=== PATIENT | female | born 1935 | race Caucasian/White ===

== ENCOUNTER → 2018-03-13 | Outpatient (CLI) | payer MEDICARE ==
[~2018-03-13] MED LIST: AMIL5TAB PO; CALC-337 PO; DIGO0.2570 PO; EMOLCRE PO; FLUT500M2 IN; HYDR-1421 PO; INDOPOW PO; LEVO25TA45 PO; LORA-205 PO; MAGN-46 PO; METO100T87 PO; MULT-278 PO; OMEG100078 PO; OMEP20TA85 PO; PROG100C4 PO; SIMV20TA90 PO; TELM20TA PO; TIOTCAP IN; WARF3TAB20 PO; [UNRECOGNIZED DRUG - CODE] PO; [UNRECOGNIZED DRUG - CODE] PO; [UNRECOGNIZED DRUG - OTHER] PO; [UNRECOGNIZED DRUG - OTHER] PO
[2018-03-13 15:14] LABS: Ferritin 43.8 ng/mL (10-322)
[2018-03-13 15:15] LABS: Folate (Folic Acid) > 24.00 ng/mL (5.38-24)
[2018-03-18 20:00] LABS: % Iron Saturation 14.6 % (15-50)
== END | disposition home or self-care (01) ==
LOC: LAB 14:06
PROVIDERS: ATTEND Psychiatry & Neurology Neurology
DX: E61.1 Iron deficiency (principal); G62.9 Polyneuropathy, unspecified; I10 Essential (primary) hypertension
CPT/HCPCS: 36415; 82607; 82728; 82746; 83540; 83550; 84155; 84165; 84443

== ENCOUNTER 2022-12-31 00:45 | Inpatient (IN) | payer MEDICARE ==
[~2022-12-31] VITALS: Ht 160 cm; Wt 71.9 kg
[~2022-12-31 00:45] MED LIST changes: +OMEG-20 PO; -OMEG100078 PO; +PROG100C23 PO; -PROG100C4 PO; +SIMV-270 PO; -SIMV20TA90 PO
[2022-12-31] MEDS ORDERED: dilTIAZem 25 MG/5 ML VIAL IV ONE ×2 (01:15→02:00)
[2022-12-31 01:22] LABS: Basophils # (auto) 0.2 10 ^3/uL (0-0.2); Basophils % (auto) 1.9 % (0.0-2.0); Eosinophils # (auto) 0.4 10 ^3/uL (0-0.8); Eosinophils % (auto) 4.3 % (0.0-7.0); Hematocrit 40.2 % (36.0-46.0); Hemoglobin 13.4 g/dL (12.2-16.2); Lymphocytes # (auto) 3.3 10 ^3/uL (0.4-5.4); Lymphocytes % (auto) 36.7 % (10.0-50.0); Mean Corpuscular Hemoglobin 30.9 pg (28.0-32.0); Mean Corpuscular Hgb Conc. 33.4 g/dL (32.0-36.0); Mean Corpuscular Volume 92.7 fL (80.0-100.0); Monocytes # (auto) 0.7 10 ^3/uL (0-1.3); Monocytes % (auto) 7.5 % (0.0-12.0); Neutrophils # (auto) 4.4 10 ^3/uL (1.6-8.6); Neutrophils % (auto) 49.6 % (37.0-80.0); Red Blood Cells 4.34 10^6/uL (4.0-5.20); Red Cell Distribution Width 14.2 % (11.8-14.3); White Blood Cell 8.9 10^3/uL (4.4-10.8)
[2022-12-31 01:36] LABS: INR 1.09 (0.9-1.15); Partial Thromboplastin Time 30.3 SEC (24.5-34.5)
[2022-12-31 01:39] LABS: Albumin 3.9 g/dL (3.4-5.0); BUN/Creatinine Ratio 23.8 (10.0-20.0); Calcium 8.8 mg/dL (8.5-10.1); Magnesium 2.8 mg/dL (1.6-2.6)
[2022-12-31 01:41] LABS: Bilirubin, Total 0.4 mg/dL (0.2-1.0); Total Protein 6.8 g/dL (6.4-8.2)
[2022-12-31] MEDS ORDERED: ACETAMINOPHEN 325 MG TAB PO ONE (02:00)
[2022-12-31] MEDS ORDERED: PANTOPRAZOLE 40 MG/10 ML VIAL INJ IV ONE (02:00)
[2022-12-31] MEDS ORDERED: dilTIAZem HCL 60 MG TAB PO ONE (02:00)
[2022-12-31] MEDS ORDERED: DIGOXIN (250MCG/ML) 2 ML AMPULE IV ONE (02:00)
[2022-12-31] MEDS ORDERED: MORPHINE SULFATE INJ 2 MG/ml SYRG IV ONE (02:00)
[2022-12-31] MEDS ORDERED: CALCIUM CHL 100MG/ML 1,000 MG in D5W 5% 100 ML IV ONE (02:00)
[2022-12-31] MEDS ORDERED: ONDANSETRON HCL 4 MG/2 ML VIAL IV ONE (02:00)
[2022-12-31] MEDS ORDERED: ALBUMIN 25% 100 ML IV ONE ×2 (02:00→04:45)
[2022-12-31] MEDS ORDERED: CALCIUM CHLOR(10%) 100MG/ML 10ML SYRINGE IV ONE (02:30)
[2022-12-31] MEDS ORDERED: dilTIAZem 125mg/125ml BAG KIT 125 ML IV SCH (03:45)
[2022-12-31] MEDS ORDERED: SODIUM CHLORIDE 0.9% 500 ML IV ONE (04:45)
[2022-12-31] MEDS ORDERED: MORPHINE SULFATE INJ 2 MG/ml SYRG IV PRN (06:15)
[2022-12-31] MEDS ORDERED: ACETAMINOPHEN 325 MG TAB PO PRN (06:15)
[2022-12-31] MEDS ORDERED: NOREPINEPHRINE 8 MG/250ML KIT 250 ML IV SCH (06:15)
[2022-12-31] MEDS ORDERED: ONDANSETRON HCL 4 MG/2 ML VIAL IV PRN (06:15)
[2022-12-31] MEDS ORDERED: NITROGLYCERIN 0.4 MG SL TAB SL PRN (06:15)
[2022-12-31 07:30] VITALS: O2SAT 93
[2022-12-31] MEDS ORDERED: PANTOPRAZOLE 40 MG TAB PO SCH (10:00)
[2022-12-31] MEDS: DIGOXIN 0.125 MG TAB PO SCH (10:00)
[2022-12-31] MEDS ORDERED: ASPirin 81 mg TAB PO SCH (10:00)
[2022-12-31] MEDS: APIXABAN 5 MG TAB PO SCH ×2 (10:00→21:41)
[2022-12-31] MEDS: HYDROcodone-ACET 5/325MG TAB PO PRN (17:28)
[2022-12-31] MEDS: FUROSEMIDE 20 MG TAB PO SCH (18:28)
[2022-12-31 19:24] LABS: BUN/Creatinine Ratio 16.3 (10.0-20.0); Potassium 4.3 mmol/L (3.5-5.1)
[2022-12-31 19:30] VITALS: PULSE 60; RESP 20; O2SAT 95
[2022-12-31] MEDS: MAGNESIUM OXIDE 400 MG TAB PO SCH (21:42)
[2022-12-31] MEDS ORDERED: ATORVASTATIN 20 MG TAB PO SCH (22:00)
[2023-01-01] MEDS: HYDROcodone-ACET 5/325MG TAB PO PRN ×3 (00:51→14:31)
[2023-01-01] MEDS: FUROSEMIDE 20 MG TAB PO SCH (06:52)
[2023-01-01 06:55] LABS: Basophils # (auto) 0.1 10 ^3/uL (0-0.2); Basophils % (auto) 1.2 % (0.0-2.0); Eosinophils # (auto) 0.4 10 ^3/uL (0-0.8); Eosinophils % (auto) 4.6 % (0.0-7.0); Hematocrit 36.5 % (36.0-46.0); Hemoglobin 12.1 g/dL (12.2-16.2); Lymphocytes # (auto) 2.5 10 ^3/uL (0.4-5.4); Lymphocytes % (auto) 28.9 % (10.0-50.0); Mean Corpuscular Hemoglobin 30.7 pg (28.0-32.0); Mean Corpuscular Hgb Conc. 33.1 g/dL (32.0-36.0); Mean Corpuscular Volume 92.9 fL (80.0-100.0); Monocytes # (auto) 0.7 10 ^3/uL (0-1.3); Monocytes % (auto) 8.6 % (0.0-12.0); Neutrophils # (auto) 4.9 10 ^3/uL (1.6-8.6); Neutrophils % (auto) 56.7 % (37.0-80.0); Nucleated Red Blood Cells % 0.1 %; Red Blood Cells 3.93 10^6/uL (4.0-5.20); Red Cell Distribution Width 13.5 % (11.8-14.3); White Blood Cell 8.6 10^3/uL (4.4-10.8)
[2023-01-01 06:56] LABS: Albumin 3.8 g/dL (3.4-5.0); Calcium 8.8 mg/dL (8.5-10.1); Potassium 3.9 mmol/L (3.5-5.1)
[2023-01-01 07:00] LABS: BUN/Creatinine Ratio 16.1 (10.0-20.0); Bilirubin, Total 0.4 mg/dL (0.2-1.0); Total Protein 6.7 g/dL (6.4-8.2)
[2023-01-01] MEDS ORDERED: LEVOTHYROXINE SODIUM 25 MCG TAB PO SCH (07:00)
[2023-01-01 08:22] VITALS: PULSE 60; RESP 20; O2SAT 98
[2023-01-01] MEDS: APIXABAN 5 MG TAB PO SCH ×2 (09:45→09:51)
[2023-01-01] MEDS: MAGNESIUM OXIDE 400 MG TAB PO SCH ×2 (09:45→09:51)
[2023-01-01] MEDS: DIGOXIN 0.125 MG TAB PO SCH (09:45)
[2023-01-01] MEDS ORDERED: METOPROLOL SUCCINATE XL 50 MG TAB PO SCH (10:00)
[2023-01-01] MEDS ORDERED: ALBU0.084 NEB (12:39)
[2023-01-01] MEDS ORDERED: AMLO1TAB22 PO (12:41)
[2023-01-01] MEDS ORDERED: APIX2.5T PO (13:31)
[2023-01-01] MEDS ORDERED: HYDR1TAB97 PO (13:31)
[2023-01-01] MEDS ORDERED: S-AD400T6 PO (13:31)
[2023-01-01] MEDS ORDERED: [UNRECOGNIZED DRUG - CODE] PO (13:31)
[2023-01-01] MEDS ORDERED: FURO1TAB33 PO (13:31)
[2023-01-01] MEDS ORDERED: GABA-1308 PO (13:31)
[2023-01-01] MEDS ORDERED: ZINC100T5 PO (13:31)
[2023-01-01] MEDS ORDERED: CODOIL PO (13:31)
[2023-01-01] MEDS ORDERED: SIMV20TA20 PO (13:31)
[2023-01-01] MEDS ORDERED: CHOL20007 PO (13:31)
[2023-01-01] MEDS ORDERED: POTA10IN6 PO (13:31)
[2023-01-01] MEDS ORDERED: CYA100I PO (13:31)
[2023-01-01] MEDS ORDERED: FLUT1AER3 IN (13:31)
[2023-01-01] MEDS ORDERED: FERR1TAB36 PO (13:31)
[2023-01-01] MEDS ORDERED: [UNRECOGNIZED DRUG - CODE] PO (13:31)
[2023-01-01] MEDS ORDERED: METO25TA93 PO (13:31)
[2023-01-01] MEDS ORDERED: OMEP-448 PO (13:31)
[2023-01-01] MEDS ORDERED: GABAPENTIN 400 MG CAP PO SCH (14:00)
[2023-01-01] MEDS ORDERED: AMIO200T33 PO (14:44)
[2023-01-01 15:00] VITALS: BP 145/54; PULSE 60; RESP 18; TEMP 98.4; O2SAT 97
== END 2023-01-01 15:42 | disposition home or self-care (01) | DRG 291 ==
LOC: ER 00:45 → EDBD 00:45 → TELE 06:16 → TELE-CENTR 01-01 10:42
PROVIDERS: ADMIT Internal Medicine; ATTEND Internal Medicine
DX: I11.0 Hypertensive heart disease with heart failure (principal); I50.43 Acute on chronic combined systolic (congestive) and diastolic (congestive) heart failure; I48.0 Paroxysmal atrial fibrillation; I25.110 Atherosclerotic heart disease of native coronary artery with unstable angina pectoris; I95.9 Hypotension, unspecified; E11.9 Type 2 diabetes mellitus without complications; Z66 Do not resuscitate; E78.5 Hyperlipidemia, unspecified; K21.9 Gastro-esophageal reflux disease without esophagitis; J44.9 Chronic obstructive pulmonary disease, unspecified; E03.9 Hypothyroidism, unspecified; F41.9 Anxiety disorder, unspecified; E66.9 Obesity, unspecified; Z88.2 Allergy status to sulfonamides; Z87.828 Personal history of other (healed) physical injury and trauma; Z88.8 Allergy status to other drugs, medicaments and biological substances; Z88.1 Allergy status to other antibiotic agents; Z90.710 Acquired absence of both cervix and uterus; Z68.28 Body mass index [BMI] 28.0-28.9, adult
CPT/HCPCS: 36415; 71045; 80048; 80053; 80162; 83036; 83735; 83880; 84443; 84484; 85025; 85379; 85610; 85730; 93005; 96361; 96365; 96367; 96375; 96376; C9113; G0378; J2405; J7060; P9047

== ENCOUNTER 2023-03-11 05:34 | Inpatient (IN) | payer MEDICARE ==
[~2023-03-11] VITALS: Ht 160 cm; Wt 69.9 kg
[~2023-03-11 05:34] MED LIST changes: +ALBU0.084 NEB; -AMIL5TAB PO; +AMIO200T33 PO; +AMLO1TAB22 PO; +APIX2.5T PO; -CALC-337 PO; +CHOL20007 PO; +CODOIL PO; +CYA100I PO; -EMOLCRE PO; +FERR1TAB36 PO; +FLUT1AER3 IN; -FLUT500M2 IN; +FURO1TAB33 PO; +GABA-1308 PO; -HYDR-1421 PO; +HYDR1TAB97 PO; -INDOPOW PO; -LORA-205 PO; -MAGN-46 PO; -METO100T87 PO; +METO25TA93 PO; -MULT-278 PO; -OMEG-20 PO; +OMEP-448 PO; -OMEP20TA85 PO; +POTA10IN6 PO; -PROG100C23 PO; +S-AD400T6 PO; -SIMV-270 PO; +SIMV20TA20 PO; -TELM20TA PO; -TIOTCAP IN; -WARF3TAB20 PO; +ZINC100T5 PO; +[UNRECOGNIZED DRUG - CODE] PO; -[UNRECOGNIZED DRUG - CODE] PO; -[UNRECOGNIZED DRUG - CODE] PO; -[UNRECOGNIZED DRUG - OTHER] PO; -[UNRECOGNIZED DRUG - OTHER] PO
[2023-03-11 07:18] LABS: Basophils # (auto) 0.2 10 ^3/uL (0-0.2); Eosinophils # (auto) 0.3 10 ^3/uL (0-0.8); Eosinophils % (auto) 4.4 % (0.0-7.0); Hematocrit 40.5 % (36.0-46.0); Hemoglobin 13.3 g/dL (12.2-16.2); Lymphocytes # (auto) 2.7 10 ^3/uL (0.4-5.4); Lymphocytes % (auto) 36.3 % (10.0-50.0); Mean Corpuscular Hemoglobin 29.8 pg (28.0-32.0); Mean Corpuscular Hgb Conc. 32.8 g/dL (32.0-36.0); Mean Corpuscular Volume 90.7 fL (80.0-100.0); Monocytes # (auto) 0.8 10 ^3/uL (0-1.3); Monocytes % (auto) 10.8 % (0.0-12.0); Neutrophils # (auto) 3.5 10 ^3/uL (1.6-8.6); Neutrophils % (auto) 46.5 % (37.0-80.0); Red Blood Cells 4.47 10^6/uL (4.0-5.20); Red Cell Distribution Width 13.9 % (11.8-14.3); White Blood Cell 7.5 10^3/uL (4.4-10.8)
[2023-03-11 07:32] LABS: INR 1.06 (0.9-1.15); Partial Thromboplastin Time 29.9 SEC (24.5-34.5); Prothrombin Time 11.1 sec (9.3-11.8)
[2023-03-11 07:41] LABS: Alanine Aminotransferase 29 U/L (7-40); Albumin 4.2 g/dL (3.2-4.8); Alkaline Phosphatase 85 U/L (46-116); Anion Gap 3 (5-15); Aspartate Aminotransferase 15 U/L (13-40); BUN/Creatinine Ratio 21.6 (10.0-20.0); Bilirubin, Total 0.4 mg/dL (0.2-1.0); Blood Urea Nitrogen 21 mg/dL (9-23); Carbon Dioxide 31 mmol/L (20-30); Chloride 106 mmol/L (98-107); Glucose 97 mg/dL (74-106); Lipase 34 U/L (12-53); Potassium 4.5 mmol/L (3.5-5.1); Sodium 140 mmol/L (136-145); Total Protein 6.4 g/dL (5.7-8.2)
[2023-03-11] MEDS ORDERED: PANTOPRAZOLE 40 MG/10 ML VIAL INJ IV ONE (08:30)
[2023-03-11] MEDS ORDERED: NITROGLYCERIN 0.4 MG SL TAB SL PRN (08:45)
[2023-03-11] MEDS ORDERED: MORPHINE SULFATE INJ 2 MG/ml SYRG IV PRN (08:45)
[2023-03-11] MEDS ORDERED: ALBUTEROL SULF 2.5 MG/0.5ML(0.5%) NEB SOLN NEB PRN (09:15)
[2023-03-11 09:22] VITALS: PULSE 60; RESP 12; O2SAT 99
[2023-03-11 09:25] LABS: Urine Bacteria NONE SEEN /hpf (None Seen); Urine Blood Negative /uL (Negative); Urine Clarity Clear (Clear); Urine Color Yellow (Yellow); Urine Protein, UAD Negative (Negative); Urine Specific Gravity 1.022 (1.001-1.035); Urine Urobilinogen Normal (Negative); Urine WBC 1 /hpf (0 - 5)
[2023-03-11] MEDS ORDERED: APIXABAN 2.5 MG TAB PO SCH (10:00)
[2023-03-11] MEDS: METHYLSULFONYLMETHANE 1000 MG PO SCH (10:00)
[2023-03-11 10:05] VITALS: PULSE 60; RESP 20; O2SAT 95
[2023-03-11] MEDS: FUROSEMIDE 20 MG TAB PO SCH (11:01)
[2023-03-11] MEDS: GABAPENTIN 400 MG CAP PO SCH ×2 (11:01→21:16)
[2023-03-11] MEDS: amLODIPine BESYLATE 5 MG TAB PO SCH (11:02)
[2023-03-11] MEDS: DIGOXIN 0.25 MG TAB PO SCH (11:02)
[2023-03-11] MEDS: AMIODARONE HCL 200 MG TAB PO SCH (11:02)
[2023-03-11] MEDS: HEPARIN SODIUM (PORCINE) 5000 UNITS/ML 1ML VIAL SC SCH ×2 (11:05→21:20)
[2023-03-11] MEDS: SODIUM CHLORIDE 0.9% 1,000 ML IV SCH (11:22)
[2023-03-11] MEDS: COD LIVER OIL PO SCH ×2 (14:00→21:21)
[2023-03-11 18:20] VITALS: O2SAT 95
[2023-03-11 18:59] VITALS: BP 143/56; PULSE 60; RESP 20; TEMP 98.2; O2SAT 96
[2023-03-11] MEDS: ATORVASTATIN 20 MG TAB PO SCH (19:25)
[2023-03-11] MEDS: S ADENOSYLMETHIONINE 400 MG PO SCH (19:26)
[2023-03-11 22:00] VITALS: BP 140/65; PULSE 60; RESP 19; TEMP 98.2; O2SAT 96
[2023-03-12] MEDS: SODIUM CHLORIDE 0.9% 1,000 ML IV SCH ×2 (01:25→18:38)
[2023-03-12 05:00] VITALS: BP_SYST 103; BP_SYST 152; BP_DIAS 54; BP_DIAS 76; PULSE 60; PULSE 71; RESP 15; RESP 20; TEMP 98.1; TEMP 98.3; O2SAT 95
[2023-03-12 05:59] LABS: Basophils # (auto) 0.1 10 ^3/uL (0-0.2); Basophils % (auto) 1.9 % (0.0-2.0); Eosinophils # (auto) 0.3 10 ^3/uL (0-0.8); Eosinophils % (auto) 5.1 % (0.0-7.0); Hematocrit 40.1 % (36.0-46.0); Hemoglobin 13.1 g/dL (12.2-16.2); Lymphocytes # (auto) 2.2 10 ^3/uL (0.4-5.4); Lymphocytes % (auto) 33.7 % (10.0-50.0); Mean Corpuscular Hemoglobin 29.6 pg (28.0-32.0); Mean Corpuscular Hgb Conc. 32.8 g/dL (32.0-36.0); Mean Corpuscular Volume 90.3 fL (80.0-100.0); Monocytes # (auto) 0.7 10 ^3/uL (0-1.3); Monocytes % (auto) 10.1 % (0.0-12.0); Neutrophils # (auto) 3.2 10 ^3/uL (1.6-8.6); Neutrophils % (auto) 49.2 % (37.0-80.0); Red Blood Cells 4.44 10^6/uL (4.0-5.20); Red Cell Distribution Width 13.9 % (11.8-14.3); White Blood Cell 6.5 10^3/uL (4.4-10.8)
[2023-03-12] MEDS: COD LIVER OIL PO SCH ×3 (06:00→21:17)
[2023-03-12 06:13] LABS: Alanine Aminotransferase 26 U/L (7-40); Albumin 3.8 g/dL (3.2-4.8); Alkaline Phosphatase 68 U/L (46-116); Anion Gap 6 (5-15); Aspartate Aminotransferase 19 U/L (13-40); Calcium 9.2 mg/dL (8.5-10.1); Carbon Dioxide 27 mmol/L (20-30); Chloride 106 mmol/L (98-107); Glucose 89 mg/dL (74-106); Potassium 4.1 mmol/L (3.5-5.1); Sodium 139 mmol/L (136-145)
[2023-03-12 06:14] LABS: Bilirubin, Total 0.6 mg/dL (0.2-1.0); Total Protein 6.2 g/dL (5.7-8.2)
[2023-03-12] MEDS: LEVOTHYROXINE SODIUM 25 MCG TAB PO SCH (06:16)
[2023-03-12] MEDS ORDERED: GABAPENTIN 100 MG CAP PO ONE (06:30)
[2023-03-12 06:44] LABS: Blood Urea Nitrogen 9 mg/dL (9-23)
[2023-03-12 08:00] VITALS: PULSE 60; RESP 17
[2023-03-12] MEDS: S ADENOSYLMETHIONINE 400 MG PO SCH ×2 (08:00→18:00)
[2023-03-12 09:00] VITALS: BP 128/50; PULSE 60; RESP 17; TEMP 97.6; O2SAT 96; O2SAT 97
[2023-03-12] MEDS ORDERED: HEPARIN SODIUM (PORCINE) 5000 UNITS/ML 1ML VIAL ONE (09:39)
[2023-03-12] MEDS: GABAPENTIN 400 MG CAP PO SCH ×2 (09:52→21:12)
[2023-03-12] MEDS: POTASSIUM CHLORIDE 8 MEQ TAB PO SCH (09:52)
[2023-03-12] MEDS: FUROSEMIDE 20 MG TAB PO SCH (09:52)
[2023-03-12] MEDS: DIGOXIN 0.25 MG TAB PO SCH (09:53)
[2023-03-12] MEDS: METOPROLOL SUCCINATE XL 50 MG TAB PO SCH (09:53)
[2023-03-12] MEDS: AMIODARONE HCL 200 MG TAB PO SCH (09:53)
[2023-03-12] MEDS: CHOLECALCIFEROL (VITD3) 1,000UNIT=25mCg TAB PO SCH (09:54)
[2023-03-12] MEDS: amLODIPine BESYLATE 5 MG TAB PO SCH (09:54)
[2023-03-12] MEDS: CHOLECALCIFEROL (VITD3) 2,000 UNIT CAP/TAB PO SCH (09:54)
[2023-03-12] MEDS: FERROUS SULFATE PO SCH (10:00)
[2023-03-12] MEDS: METHYLSULFONYLMETHANE 1000 MG PO SCH (10:00)
[2023-03-12] MEDS: HEPARIN SODIUM (PORCINE) 5000 UNITS/ML 1ML VIAL SC SCH ×2 (10:04→21:16)
[2023-03-12] MEDS: PANTOPRAZOLE 40 MG/10 ML VIAL INJ IV SCH (10:10)
[2023-03-12 13:00] VITALS: BP 107/56; PULSE 60; RESP 17; TEMP 97.8; O2SAT 98
[2023-03-12 17:00] VITALS: BP 118/55; PULSE 60; RESP 20; TEMP 97.9; O2SAT 99
[2023-03-12] MEDS: ATORVASTATIN 20 MG TAB PO SCH (18:37)
[2023-03-12 20:00] VITALS: PULSE 60; RESP 16
[2023-03-13 00:05] VITALS: BP 143/49; PULSE 60; RESP 18; TEMP 98.2; O2SAT 97
[2023-03-13 04:55] VITALS: BP 141/54; PULSE 60; RESP 18; TEMP 98.1; O2SAT 96
[2023-03-13] MEDS: COD LIVER OIL PO SCH (06:00)
[2023-03-13] MEDS: GABAPENTIN 400 MG CAP PO SCH (06:19)
[2023-03-13] MEDS: LEVOTHYROXINE SODIUM 25 MCG TAB PO SCH (06:41)
[2023-03-13 08:00] VITALS: PULSE 60; RESP 18; O2SAT 94
[2023-03-13] MEDS: S ADENOSYLMETHIONINE 400 MG PO SCH (08:00)
[2023-03-13 08:30] VITALS: BP 134/55; PULSE 60; RESP 19; TEMP 98; O2SAT 96
[2023-03-13] MEDS: POTASSIUM CHLORIDE 8 MEQ TAB PO SCH (08:44)
[2023-03-13] MEDS: METOPROLOL SUCCINATE XL 50 MG TAB PO SCH (08:45)
[2023-03-13] MEDS: METHYLSULFONYLMETHANE 1000 MG PO SCH (10:00)
[2023-03-13] MEDS: FERROUS SULFATE PO SCH (10:00)
[2023-03-13] MEDS: CHOLECALCIFEROL (VITD3) 1,000UNIT=25mCg TAB PO SCH (10:25)
[2023-03-13] MEDS: DIGOXIN 0.25 MG TAB PO SCH (10:26)
[2023-03-13] MEDS: FUROSEMIDE 20 MG TAB PO SCH (10:26)
[2023-03-13] MEDS: CHOLECALCIFEROL (VITD3) 2,000 UNIT CAP/TAB PO SCH (10:26)
[2023-03-13] MEDS: amLODIPine BESYLATE 5 MG TAB PO SCH (10:27)
[2023-03-13] MEDS: AMIODARONE HCL 200 MG TAB PO SCH (10:27)
[2023-03-13] MEDS: PANTOPRAZOLE 40 MG/10 ML VIAL INJ IV SCH (10:27)
[2023-03-13] MEDS: HEPARIN SODIUM (PORCINE) 5000 UNITS/ML 1ML VIAL SC SCH (10:31)
[2023-03-13 11:47] VITALS: BP 141/63; PULSE 60; RESP 20; TEMP 98.1; O2SAT 99
== END 2023-03-13 13:20 | disposition home or self-care (01) | DRG 393 ==
LOC: ER 05:34 → TELE 08:33 → TELE-CENTR 17:53
PROVIDERS: ADMIT Nurse Practitioner Family; ATTEND Family Medicine
DX: T18.8XXA Foreign body in other parts of alimentary tract, initial encounter (principal); I50.43 Acute on chronic combined systolic (congestive) and diastolic (congestive) heart failure; I48.20 Chronic atrial fibrillation, unspecified; K92.2 Gastrointestinal hemorrhage, unspecified; J44.1 Chronic obstructive pulmonary disease with (acute) exacerbation; K21.9 Gastro-esophageal reflux disease without esophagitis; K64.9 Unspecified hemorrhoids; E03.9 Hypothyroidism, unspecified; Z66 Do not resuscitate; E11.9 Type 2 diabetes mellitus without complications; E78.00 Pure hypercholesterolemia, unspecified; F41.9 Anxiety disorder, unspecified; I10 Essential (primary) hypertension; Z88.2 Allergy status to sulfonamides; Z88.8 Allergy status to other drugs, medicaments and biological substances; Z88.1 Allergy status to other antibiotic agents; Z90.710 Acquired absence of both cervix and uterus; Z82.49 Family history of ischemic heart disease and other diseases of the circulatory system; Z95.0 Presence of cardiac pacemaker; Z91.81 History of falling; Z91.011 Allergy to milk products
CPT/HCPCS: 36415; 71250; 74018; 74176; 80053; 81001; 82270; 82962; 83690; 84484; 85025; 85610; 85730; 87081; C9113; G0378

== ENCOUNTER 2023-12-04 08:48 | Emergency (ER) | payer MEDICARE ==
[~2023-12-04] VITALS: Ht 157.5 cm; Wt 72.0 kg
[2023-12-04 09:44] VITALS: BP 132/48; PULSE 60; RESP 18; TEMP 98; O2SAT 97
== END 2023-12-04 10:33 | disposition home or self-care (01) ==
LOC: ER 08:55
DX: M25.571 Pain in right ankle and joints of right foot (principal); R07.81 Pleurodynia; J44.9 Chronic obstructive pulmonary disease, unspecified; E78.5 Hyperlipidemia, unspecified; I10 Essential (primary) hypertension; Z90.710 Acquired absence of both cervix and uterus; Z88.1 Allergy status to other antibiotic agents; Z88.2 Allergy status to sulfonamides; Z91.011 Allergy to milk products; W01.0XXA Fall on same level from slipping, tripping and stumbling without subsequent striking against object, initial encounter; Y93.89 Activity, other specified; Y92.89 Other specified places as the place of occurrence of the external cause; Y99.8 Other external cause status
CPT/HCPCS: 71101; 73610

== ENCOUNTER 2023-12-11 18:50 | Inpatient (IN) | payer MEDICARE ==
[~2023-12-11] VITALS: Ht 157.5 cm; Wt 71.4 kg
[~2023-12-11 18:50] MED LIST changes: +GABA800T97 PO; +LEVO50TA7 PO; +MECL12.586 PO
[2023-12-11 20:02] LABS: Basophils # (auto) 0 10 ^3/uL (0-0.2); Basophils % (auto) 0.6 % (0.0-2.0); Eosinophils # (auto) 0.1 10 ^3/uL (0-0.8); Hematocrit 35.6 % (36.0-46.0); Hemoglobin 11.7 g/dL (12.2-16.2); Lymphocytes # (auto) 1.9 10 ^3/uL (0.4-5.4); Lymphocytes % (auto) 27.8 % (10.0-50.0); Mean Corpuscular Hgb Conc. 32.7 g/dL (32.0-36.0); Mean Corpuscular Volume 94.6 fL (80.0-100.0); Monocytes # (auto) 0.6 10 ^3/uL (0-1.3); Monocytes % (auto) 8.3 % (0.0-12.0); Neutrophils # (auto) 4.2 10 ^3/uL (1.6-8.6); Neutrophils % (auto) 62.3 % (37.0-80.0); Nucleated Red Blood Cells % 0.1 %; Red Blood Cells 3.76 10^6/uL (4.0-5.20); Red Cell Distribution Width 12.6 % (11.8-14.3); White Blood Cell 6.7 10^3/uL (4.4-10.8)
[2023-12-11 20:18] LABS: Alanine Aminotransferase 19 U/L (7-40); Albumin 4.2 g/dL (3.2-4.8); Alkaline Phosphatase 113 U/L (46-116); Anion Gap 3 (5-15); Aspartate Aminotransferase 22 U/L (13-40); BUN/Creatinine Ratio 20.4 (10.0-20.0); Bilirubin, Total 0.3 mg/dL (0.2-1.0); Blood Urea Nitrogen 22 mg/dL (9-23); Calcium 9.6 mg/dL (8.5-10.1); Carbon Dioxide 31 mmol/L (20-30); Chloride 108 mmol/L (98-107); Glucose 103 mg/dL (74-106); Potassium 4.3 mmol/L (3.5-5.1); Sodium 142 mmol/L (136-145)
[2023-12-11 20:19] LABS: Total Protein 6.6 g/dL (5.7-8.2)
[2023-12-11 20:24] LABS: INR 1.08 (0.9-1.15); Partial Thromboplastin Time 28.1 SEC (24.5-34.5); Prothrombin Time 11.4 sec (9.3-11.8)
[2023-12-12] VITALS (12 sets, daily range): BP systolic 118–150; BP diastolic 50–71; PULSE 60–87; RESP 12–20; TEMP 97.4–98.4; O2SAT 94–99
[2023-12-12] MEDS: IOHEXOL 350 MG/ML 100ML IJ ONE (00:32)
[2023-12-12] MEDS: ENOXAPARIN SOD 80 MG/0.8ML SYRINGE SC ONE (05:09)
[2023-12-12] MEDS: HYDROcodone-ACET 5/325MG TAB PO ONE (05:39)
[2023-12-12] MEDS ORDERED: ACETAMINOPHEN 325 MG TAB PO PRN (06:15)
[2023-12-12] MEDS ORDERED: MORPHINE SULFATE INJ 2 MG/ml SYRG IV PRN (06:15)
[2023-12-12] MEDS: AMIODARONE HCL 200 MG TAB PO SCH (11:04)
[2023-12-12] MEDS: amLODIPine BESYLATE 5 MG TAB PO SCH (11:05)
[2023-12-12] MEDS: METOPROLOL SUCCINATE XL 50 MG TAB PO SCH (11:06)
[2023-12-12] MEDS: HYDROcodone-ACET 5/325MG TAB PO PRN (20:13)
[2023-12-12] MEDS: ALBUTEROL SULF 2.5 MG/0.5ML(0.5%) NEB SOLN NEB PRN (20:26)
[2023-12-12] MEDS: ATORVASTATIN 20 MG TAB PO SCH (21:53)
[2023-12-12] MEDS ORDERED: APIXABAN 2.5 MG TAB PO SCH (22:00)
[2023-12-13] VITALS (10 sets, daily range): BP systolic 131–147; BP diastolic 49–59; PULSE 58–64; RESP 16–21; TEMP 97.6–98.5; O2SAT 93–100
[2023-12-13] MEDS: LEVOTHYROXINE SODIUM 25 MCG TAB PO SCH ×2 (05:54)
[2023-12-13 06:30] LABS: Chloride 109 mmol/L (98-107); Potassium 4.1 mmol/L (3.5-5.1); Sodium 141 mmol/L (136-145)
[2023-12-13 06:31] LABS: Anion Gap 2 (5-15); Calcium 9.4 mg/dL (8.7-10.4); Carbon Dioxide 30 mmol/L (20-30)
[2023-12-13 06:33] LABS: Basophils # (auto) 0.1 10 ^3/uL (0-0.2); Basophils % (auto) 1.3 % (0.0-2.0); Eosinophils # (auto) 0 10 ^3/uL (0-0.8); Eosinophils % (auto) 0.8 % (0.0-7.0); Hematocrit 34.1 % (36.0-46.0); Hemoglobin 11.5 g/dL (12.2-16.2); Lymphocytes # (auto) 1.6 10 ^3/uL (0.4-5.4); Lymphocytes % (auto) 27.8 % (10.0-50.0); Mean Corpuscular Hemoglobin 31.9 pg (28.0-32.0); Mean Corpuscular Hgb Conc. 33.8 g/dL (32.0-36.0); Mean Corpuscular Volume 94.4 fL (80.0-100.0); Monocytes # (auto) 0.5 10 ^3/uL (0-1.3); Monocytes % (auto) 7.8 % (0.0-12.0); Neutrophils # (auto) 3.6 10 ^3/uL (1.6-8.6); Neutrophils % (auto) 62.3 % (37.0-80.0); Red Blood Cells 3.61 10^6/uL (4.0-5.20); Red Cell Distribution Width 12.5 % (11.8-14.3); White Blood Cell 5.9 10^3/uL (4.4-10.8)
[2023-12-13 06:36] LABS: BUN/Creatinine Ratio 17.9 (10.0-20.0); Blood Urea Nitrogen 14 mg/dL (9-23); Glucose 89 mg/dL (74-106)
[2023-12-13] MEDS ORDERED: PATIENTS OWN MEDICATION (Metoprolol Succinate (Metoprolol Succinate Er) 25 MG) PO SCH (08:00)
[2023-12-13] MEDS: POTASSIUM CHLORIDE 8 MEQ TAB PO SCH (08:56)
[2023-12-13] MEDS: FUROSEMIDE 20 MG TAB PO SCH (08:59)
[2023-12-13] MEDS ORDERED: FURO40TA4 PO (10:07)
[2023-12-13] MEDS ORDERED: MONT-8 PO (10:10)
[2023-12-13] MEDS ORDERED: TRAZ-227 PO (10:10)
[2023-12-13] MEDS ORDERED: MAGN400T40 PO (10:19)
[2023-12-13] MEDS ORDERED: TELM40TA11 PO (10:19)
[2023-12-13] MEDS ORDERED: POTA8TAB38 PO (16:47)
[2023-12-14] VITALS (10 sets, daily range): BP systolic 103–161; BP diastolic 54–78; PULSE 55–79; RESP 16–20; TEMP 97.1–98.3; O2SAT 94–97
[2023-12-14] MEDS: ONDANSETRON HCL 4 MG/2 ML VIAL IV PRN (22:58)
[2023-12-15] VITALS (11 sets, daily range): BP systolic 133–164; BP diastolic 57–73; PULSE 60–78; RESP 16–18; TEMP 98.2–98.7; O2SAT 94–100
[2023-12-15] MEDS: traZODone HCL 50 MG TAB PO ONE (10:00)
[2023-12-15] MEDS ORDERED: DOCUSATE SOD 100 MG CAP PO PRN (10:00)
[2023-12-15] MEDS: MAGNESIUM OXIDE 400 MG TAB PO SCH (12:30)
[2023-12-15] MEDS: ALPRAZolam 0.5 MG TAB PO SCH (12:33)
[2023-12-15] MEDS: GABAPENTIN 400 MG CAP PO SCH (12:36)
[2023-12-15] MEDS ORDERED: IPRATROPIUM BROM 0.5 MG/2.5ML INH SOL NEB PRN (18:15)
[2023-12-15] MEDS: IPRATROPIUM BROM 0.5 MG/2.5ML INH SOL NEB ONE (18:43)
[2023-12-15] MEDS: ALBUTEROL SULF 2.5 MG/0.5ML(0.5%) NEB SOLN NEB ONE (18:43)
[2023-12-15] MEDS: traZODone HCL 50 MG TAB PO SCH (22:07)
[2023-12-16] VITALS (7 sets, daily range): BP systolic 99–138; BP diastolic 50–67; PULSE 55–65; RESP 16–18; TEMP 98.1–98.9; O2SAT 92–98
[2023-12-16] MEDS ORDERED: ALBUTEROL SULF 2.5 MG/0.5ML(0.5%) NEB SOLN NEB PRN
[2023-12-16] MEDS ORDERED: IPRATROPIUM BROM 0.5 MG/2.5ML INH SOL NEB PRN
[2023-12-16 02:51] LABS: Urine Bacteria FEW /hpf (None Seen); Urine Blood 1+ /uL (Negative); Urine Clarity Clear (Clear); Urine Color Colorless (Yellow); Urine Protein, UAD Negative (Negative); Urine Specific Gravity 1.005 (1.001-1.035); Urine Urobilinogen Normal (Negative); Urine WBC 2 /hpf (0 - 5); Urine pH 5.5 (5.0-9.0)
[2023-12-16] MEDS: APIXABAN 2.5 MG TAB PO SCH (12:22)
[2023-12-16 17:48] LABS: COVID19 ANTIGEN SOFIA FIA NEGATIVE (NEGATIVE)
== END 2023-12-16 17:45 | DRG 300 ==
LOC: ER 18:50 → OVERFLOW 12-12 06:15 → EAST 12-12 08:46
PROVIDERS: ADMIT Nurse Practitioner; ATTEND Family Medicine
DX: E11.51 Type 2 diabetes mellitus with diabetic peripheral angiopathy without gangrene (principal); I13.0 Hypertensive heart and chronic kidney disease with heart failure and stage 1 through stage 4 chronic kidney disease, or unspecified chronic kidney disease; J44.1 Chronic obstructive pulmonary disease with (acute) exacerbation; I50.32 Chronic diastolic (congestive) heart failure; I70.202 Unspecified atherosclerosis of native arteries of extremities, left leg; E03.9 Hypothyroidism, unspecified; E78.00 Pure hypercholesterolemia, unspecified; I48.91 Unspecified atrial fibrillation; I25.10 Atherosclerotic heart disease of native coronary artery without angina pectoris; K64.9 Unspecified hemorrhoids; E11.40 Type 2 diabetes mellitus with diabetic neuropathy, unspecified; N18.9 Chronic kidney disease, unspecified; S93.401A Sprain of unspecified ligament of right ankle, initial encounter; F41.9 Anxiety disorder, unspecified; Z66 Do not resuscitate; G89.29 Other chronic pain; Z20.822 Contact with and (suspected) exposure to COVID-19; I50.9 Heart failure, unspecified; E11.22 Type 2 diabetes mellitus with diabetic chronic kidney disease; M54.9 Dorsalgia, unspecified; W18.39XA Other fall on same level, initial encounter; Y92.009 Unspecified place in unspecified non-institutional (private) residence as the place of occurrence of the external cause; Z95.0 Presence of cardiac pacemaker; Z88.1 Allergy status to other antibiotic agents; Z91.011 Allergy to milk products; Z91.013 Allergy to seafood; Z88.8 Allergy status to other drugs, medicaments and biological substances; Z91.09 Other allergy status, other than to drugs and biological substances; Z79.899 Other long term (current) drug therapy; Z90.710 Acquired absence of both cervix and uterus; Y93.89 Activity, other specified; Y99.8 Other external cause status; Z91.048 Other nonmedicinal substance allergy status; Z82.49 Family history of ischemic heart disease and other diseases of the circulatory system; Z79.01 Long term (current) use of anticoagulants
CPT/HCPCS: 36415; 73630; 73706; 80048; 80053; 81001; 82550; 85025; 85610; 85730; 87086; 87426; 93971; 94640; 97110; 97116; 97163; 97530; G0378; J2405

== ENCOUNTER 2024-05-23 06:50 | Inpatient (IN) | payer MEDICARE ==
[~2024-05-23] VITALS: Ht 157.5 cm; Wt 76.6 kg
[2024-05-23] VITALS (7 sets, daily range): BP systolic 151–161; BP diastolic 50–59; PULSE 60; RESP 13–20; TEMP 97.9–98.8; O2SAT 94–98
[~2024-05-23 06:50] MED LIST changes: +FURO40TA4 PO; -GABA-1308 PO; -LEVO25TA45 PO; +MAGN400T40 PO; +MONT-8 PO; -POTA10IN6 PO; +POTA8TAB38 PO; +TELM40TA11 PO; +TRAZ-227 PO
[2024-05-23 07:42] LABS: Chloride 107 mmol/L (98-107); Potassium 4.3 mmol/L (3.5-5.1); Sodium 142 mmol/L (136-145)
[2024-05-23 07:43] LABS: Anion Gap 6 (5-15); Carbon Dioxide 29 mmol/L (20-31)
[2024-05-23 07:44] LABS: Calcium 9.6 mg/dL (8.7-10.4)
[2024-05-23 07:46] LABS: Basophils # (auto) 0.1 10 ^3/uL (0-0.2); Basophils % (auto) 1.3 % (0.0-2.0); Eosinophils # (auto) 0.2 10 ^3/uL (0-0.8); Eosinophils % (auto) 2.5 % (0.0-7.0); Hematocrit 39.4 % (36.0-46.0); Hemoglobin 13.1 g/dL (12.2-16.2); Lymphocytes # (auto) 2.2 10 ^3/uL (0.4-5.4); Lymphocytes % (auto) 36.6 % (10.0-50.0); Mean Corpuscular Hemoglobin 31.1 pg (28.0-32.0); Mean Corpuscular Hgb Conc. 33.2 g/dL (32.0-36.0); Mean Corpuscular Volume 93.9 fL (80.0-100.0); Monocytes # (auto) 0.5 10 ^3/uL (0-1.3); Monocytes % (auto) 8.3 % (0.0-12.0); Neutrophils # (auto) 3.1 10 ^3/uL (1.6-8.6); Neutrophils % (auto) 51.3 % (37.0-80.0); Platelet Count (auto) 203 10^3/uL (140-450); Red Blood Cells 4.19 10^6/uL (4.0-5.20); Red Cell Distribution Width 13.9 % (11.8-14.3); White Blood Cell 6.1 10^3/uL (4.4-10.8)
[2024-05-23 07:48] LABS: BUN/Creatinine Ratio 13.2 (10.0-20.0); Blood Urea Nitrogen 12 mg/dL (9-23); Glucose 90 mg/dL (74-106)
[2024-05-23] MEDS: NITROGLYCERIN 2% OINT 1GM PKG TD ONE (08:19)
--- NOTE | 2024-05-23 08:26 | ED.PDOC ---
History of Present Illness HPI Comments 89F BIBA and w/ daughter, w/ prior Hx of COPD, High Lipids, HTN, AFIB, and home O2 with c/c of CP. Pt reports waking up w/ CP that goes across the entire chest. Pt reports that she was given 4 baby aspirins and 2 Nitro before arrival to the ED. Pt notes that she currently has only left sided CP which is still constant but the right side subsided. PMHx of Chronic, Back pain/Neck pain, CAD and Thyroid. SHx of Appendectomy, Hysterectomy, Pacemaker and Tonsillectomy. Denies chills, fever, N/V/D, SOB, CP or other associated symptoms, modifiers, or recent injuries at this time. Chief Complaint: Chest Pain Time Seen by MD: 07:45 Primary Care Provider: RAIZA Reviewed Notes: Nurses Notes, Emt B Notes, Medications, Allergies Allergies: Coded Allergies: Milk-related Compounds (Verified Allergy, Unknown, 03/11/23) DAIRY Naproxen (Verified Allergy, Unknown, 12/31/22) Sulfa Drugs (Verified Allergy, Unknown, 12/31/22) Tetracycline (Verified Allergy, Unknown, 12/31/22) Uncoded Allergies: ADHESIVE TAPE (Allergy, Unknown, 12/04/23) Home Meds Active Scripts Amiodarone Hcl (Amiodarone Hcl) 200 Mg Tab, 200 MG PO DAILY for 30 Days, #30 TAB 2 Refills Prov:MAGDA NIX MD 01/01/23 Reported Medications Meclizine Hcl (Meclizine Hcl) 12.5 Mg Tab, 1 TAB PO TID for 20 Days, #60 12/13/23 Potassium Chloride (Klor-Con 8) 8 Meq Tab, 1 TAB PO DAILY 12/13/23 Gabapentin (Gabapentin) 800 Mg Tab, 1 TAB PO TID 12/13/23 Levothyroxine Sodium (Levothyroxine Sodium) 50 Mcg Tab, 1 TAB PO DAILY 12/13/23 Telmisartan (Micardis) 40 Mg Tab, 40 MG PO, TAB 12/13/23 Magnesium Oxide (MAGNESIUM OXIDE) 400 Mg Tab, 500 MG PO DAILY, TAB 12/13/23 Trazodone Hcl (Trazodone Hcl) 50 Mg Tab, 2 TAB PO QHSP PRN for ANXIETY 12/13/23 Montelukast Sodium (MONTELUKAST SODIUM) 10 Mg Tab, 1 TAB PO DAILY 12/13/23 Furosemide (Furosemide) 40 Mg Tab, TAB PO 12/13/23 Vitamin B12 (Vitamin B-12) 1,000 Mcg/1 Ml Ij, 2500 MCG PO DAILY@BREAKFAST, INJ 01/01/23 Cholecalciferol (VITAMIN D3) 2,000 Unit Tab, 5000 UNITS PO DAILY, TAB 01/01/23 Zinc Gluconate (ZINC) 100 Mg Tab, 30 MG PO DAILY, TAB 01/01/23 Xzpnbzzzyaa-Ldzokpvknrhp-Tbubi (Trelegy Ellipta 100-62.5-25 Mcg/INH) 1 Aer Aer, 1 AER IN, AER 01/01/23 Simvastatin (Simvastatin) 20 Mg Tab, 20 MG PO DAILY@DINNER, TAB 01/01/23 S-Adenosylmethionine (SOURAV E) 400 Mg Tab, 400 MG PO BIDBRS, TAB 01/01/23 Omeprazole (Omeprazole Dr) 40 Mg Cap, 40 MG PO DAILY@DINNER, CAP 01/01/23 Metoprolol Succinate (Metoprolol Succinate Er) 25 Mg Tab, 25 MG PO DAILY@BREAK FAST, TAB 01/01/23 Methylsulfonylmethane (MSM) 900 Mg Cap, 1000 MG PO DAILY, CAP 01/01/23 Furosemide (Lasix) 20 Mg Tb, 20 MG PO DAILY, TAB 01/01/23 Ferrous Sulfate (Iron (Ferrous Sulfate)) 50 Mg Tab, 18 MG PO DAILY, TAB 01/01/23 Hydrocodone-Acetaminophen (Hydrocodone/Acetaminophen 5-325 mg) 1 Tab Tab, 1 TAB PO PRN, TAB 01/01/23 Apixaban Base (ELIQUIS) 2.5 Mg Tab, 2.5 MG PO BID, TAB 01/01/23 Cod Liver Oil (Cod Liver Oil) Oil, 2200 MG PO TID, EA 01/01/23 Amlodipine Besylate (Amlodipine Besylate) 5 Mg Tab, 5 MG PO DAILY, TAB 01/01/23 Albuterol Sulfate (Albuterol Sulfate) 0.083 % Neb, 1 VIAL NEB Q4HPRN PRN for SHORTNESS OF BREATH, #50 VIAL 01/01/23 Digoxin (Digoxin) 0.25 Mg Tab, 0.25 MG PO DAILY 02/12/12 Information Source: Patient, Relative (Child) Mode of Arrival: EMS Severity: Moderate Timing: Minutes Duration: Since onset, Minutes Prehospital treatment: None Past Medical History PAST MEDICAL HISTORY: AFIB, CAD, COPD, High Lipids, HTN, Thyroid Past Medical History (Other): Chronic Neck/Back pain Surgical History: Appendectomy, Hysterectomy, Pacemaker, Tonsillectomy [employer] History: Unknown Family History Family History: Reviewed,noncontributory to illness, Unknown Social History Smoker: Non-Smoker Alcohol: Denies ETOH Use Drugs: Denies Drug Use Lives In: Home Constitutional: denies: chills, diaphoresis, fatigue, fever, malaise, sweats, weakness, others EENTM: denies: blurred vision, double vision, ear bleeding, ear discharge, ear drainage, ear pain, ear ringing, eye pain, eye redness, hearing loss, mouth pain, mouth swelling, nasal discharge, nose bleeding, nose congestion, nose pain, photophobia, tearing, throat pain, throat swelling, voice changes, others Respiratory: denies: cough, hemoptysis, orthopnea, SOB at rest, shortness of breath, SOB with excertion, stridor, wheezing, others Cardiovascular: reports: chest pain; denies: dizzy spells, diaphoresis, Dyspnea on exertion, edema, irregular heart beat, left arm pain, lightheadedness, palpitations, PND, syncope, others Gastrointestinal: denies: abdomen distended, abdominal pain, blood streaked bowels, constipated, diarrhea, dysphagia, difficulty swallowing, hematemesis, melena, nausea, poor appetite, poor fluid intake, rectal bleeding, rectal pain, vomiting, others Genitourinary: denies: abnormal vagina bleeding, burning, dyspareunia, dysuria, flank pain, frequency, hematuria, incontinence, pain, , vagina discharge, urgency, others Neurological: denies: dizziness, fainting, headache, left sided numbness, left sided weakness, numbness, paresthesia, pre-existing deficit, right sided numbness, right sided weakness, seizure, speech problems, tingling, tremors, weakness, others Musculoskeletal: denies: back pain, gout, joint pain, joint swelling, muscle pain, muscle stiffness, neck pain, others Integumetry: denies: bruises, change in color, change in hair/nails, dryness, laceration, lesions, lumps, rash, wounds, others Allergic/Immunocompromised: denies: Difficulty Healing, Frequent Infections, Hives, Itching, others Hematologic/Lymphatic: denies: anemia, blood clots, easy bleeding, easy bruising, swollen glands, others Endocrine: denies: excessive hunger, excessive sweating, excessive thirst, excessive urination, flushing, intolerance to cold, intolerance to heat, unexplained weight gain, unexplained weight loss, others Psychiatric: denies: anxiety, bipolar disorder, depression, hopeless, panic disorder, schizophrenia, sleepless, suicidal, others All Other Systems: Reviewed and Negative Physical Exam General Appearance: No Apparent Distress HEENT: Other (Pupils symmetric, moist mucous membranes) Neck: Full Range of Motion, Normal Inspection Respiratory: Lungs Clear, No Accessory Muscle Use, No Respiratory Distress, Normal Breath Sounds Cardiovascular: No JVD, Regular Rate/Rhythm Breast Exam: Deferred Gastrointestinal: Non Tender, Soft Genitalia: Deferred Pelvic: Deferred Rectal: Deferred Extremities: No calf tenderness, Normal inspection, Normal range of motion, Non-tender, Pedal edema Musculoskeletal : Apperance: Normal Neurologic: Alert (Oriented x4), Normal Affect, Normal Mood, Other (Moves all extremities, no gross focal deficit.) Cerebellar Function: NOT DONE Reflexes: NOT DONE Skin: Dry, Normal Color, Warm Lymphatic: NOT DONE Was a procedure done? Was a procedure done?: No EKG EKG : Comments Atrial paced complexes, ventricular rate 60, [place] prolonged at 231, normal QRS interval, normal QTC interval, normal axis, lateral T inversion with other nonspecific T changes Differential Dx Considerations may include: ACS, TN, arrhythmia, CHF, COPD, chest wall pain, anxiety, pneumonia, among others X-Ray, Labs, Meds, VS Vital Signs Date Time Temp Pulse Resp B/P (MAP) Pulse Ox O2 Delivery O2 Flow Rate FiO2 05/23/24 09:00 60 18 133/68 (89) 98 05/23/24 09:00 Room Air* 0 21 05/23/24 08:59 133/68 05/23/24 08:19 132/81 05/23/24 08:15 98.2 60 16 132/81 (98) 98 98.2 05/23/24 08:15 60 20 98 Room Air* 0 21 05/23/24 07:06 97.9 62 20 130/78 (95) 95 05/23/24 06:58 110 Lab Test 05/23/24 10:00 05/23/24 08:08 05/23/24 07:12 Range/Units Troponin I High Sensitivity 3 L 4 </=34 ng/L Urine Color Yellow Yellow Urine Clarity Turbid H Clear Urine pH 8.0 5.0-9.0 Urine Specific [place] 1.022 1.001-1.035 Urine Protein Trace H Negative Urine Ketones Negative Negative Urine Blood Negative Negative /uL Urine Nitrite Negative Negative Urine Bilirubin Negative Negative Urine Urobilinogen Normal Negative mg/dL Urine Leukocyte Esterase Negative Negative /uL Urine RBC 1 0 - 4 /hpf Urine WBC 1 0 - 5 /hpf Urine Squamous Epithelial Cells Few <5 /hpf Urine Bacteria None seen None Seen /hpf Urine Hyaline Casts Few 0 - 2 /lpf Urine Glucose Normal Normal mg/dL White Blood Count 6.1 4.4-10.8 10^3/uL Red Blood Count 4.19 4.0-5.20 10^6/uL Hemoglobin 13.1 12.2-16.2 g/dL Hematocrit 39.4 36.0-46.0 % Mean Corpuscular Volume 93.9 80.0-100.0 fL Mean Corpuscular Hemoglobin 31.1 28.0-32.0 pg Mean Corpuscular Hemoglobin Concent 33.2 32.0-36.0 g/dL Red Cell Distribution Width 13.9 11.8-14.3 % Platelet Count 203 140-450 10^3/uL Mean Platelet Volume 8.2 6.9-10.8 fL Neutrophils (%) (Auto) 51.3 37.0-80.0 % Lymphocytes (%) (Auto) 36.6 10.0-50.0 % Monocytes (%) (Auto) 8.3 0.0-12.0 % Eosinophils (%) (Auto) 2.5 0.0-7.0 % Basophils (%) (Auto) 1.3 0.0-2.0 % Neutrophils # (Auto) 3.1 1.6-8.6 10 ^3/uL Lymphocytes # (Auto) 2.2 0.4-5.4 10 ^3/uL Monocytes # (Auto) 0.5 0-1.3 10 ^3/uL Eosinophils # (Auto) 0.2 0-0.8 10 ^3/uL Basophils # (Auto) 0.1 0-0.2 10 ^3/uL Nucleated Red Blood Cells 0.0 % Sodium Level 142 136-145 mmol/L Potassium Level 4.3 3.5-5.1 mmol/L Chloride Level 107 98-107 mmol/L Carbon Dioxide Level 29 20-31 mmol/L Anion Gap 6 5-15 Blood Urea Nitrogen 12 9-23 mg/dL Creatinine 0.91 0.550-1.02 mg/dL Glomerular Filtration Rate Calc 61 >90 mL/min BUN/Creatinine Ratio 13.2 10.0-20.0 Serum Glucose 90 74-106 mg/dL Calcium Level 9.6 8.7-10.4 mg/dL B-Type Natriuretic Peptide 111.43 0-100 pg/mL Current Medications Medications (Trade) Dose Ordered Sig/Jasmyne Route Start Time Stop Time Status Last Admin Nitroglycerin (Nitro-Bid) 1 pkg ONCE ONCE TD 05/23/24 07:30 05/23/24 07:32 DC 05/23/24 08:19 PROCEDURE(s): CXRP - CHEST PORTABLE REASON: cp ORDER NUMBER(s): [id number], ACCESSION NUMBER(s): [id number] EXAM: XR Chest, 1 View CLINICAL INDICATION: cp TECHNIQUE: Frontal view of the chest. COMPARISON: XY CHEST XRAY 1 VIEW on DOS: 12/31/22 FINDINGS: LUNGS AND PLEURAL SPACES: Unremarkable. No consolidation. No pneumothorax. No acute cardiopulmonary process. HEART: Unremarkable. No cardiomegaly. MEDIASTINUM: Unremarkable. Normal mediastinal contour. BONES/JOINTS: Unremarkable. No acute fracture. TUBES, LINES AND DEVICES: Left-sided cardiac pacemaker. OTHER FINDINGS: . . IMPRESSION: No acute cardiopulmonary process. X-Ray, Labs, Meds, VS Comment 89-year-old female with a history of CAD, AFib, COPD, hypertension and hyperlipidemia complaining of chest pain Vitals unremarkable Exam unremarkable Rhythm strip independently interpreted by me: Atrial paced complexes, ventricular rate 60 Chest x-ray unremarkable CBC, basic metabolic panel, BNP and serial troponins unremarkable for any abnormality of acute significance Patient treated with the following in the ED: Nitro-Bid 1 in to chest wall On re-evaluation, patient states pain has improved. Vitals are stable. Plan is to admit the patient for Cardiology evaluation. Time of 1ST Reevaluation: 08:15 Reevaluation 1ST: Unchanged Time of 2ND Reevaluation: 10:51 Reevaluation 2ND: Improved Patient Education/Counseling: Diagnosis, Treatment, Prognosis Family Education/Counseling: No Family Present Additional Information I reviewed the following notes from the pt's past medical encounters: 12/11/23 The following tests were ordered, and results were reviewed by me: labs, EKGS, X-Rays, PHA Additional information was gathered from interviewing the following independent historians: enedelia I reviewed and agreed with the following test results read by other providers: X-Ray I discussed treatments and results with medical personnel and: (consultants, enedelia, etc) Departure 1 Departure Time of Disposition: 10:51 Impression: Primary Impression: Acute chest pain Additional Impression: Unstable angina Disposition: ADMITTED INPATIENT Admit to: Tele Condition: Guarded Critical Care Note Critical Care Time?: No Stability Stability form required: No Heart Score Heart Score: Heart Score Response (Comments) Value History Highly Suspicious 2 EKG Repolarization Disturb 1 Age >65 2 Risk Factors >3 or Hx ASHD 2 Troponin Normal limit 0 Total 7 I personally scribed for ELISABETH BLAKE MD ([email or web address]) on 05/23/24 at 08:26. Electronically submitted by Dominic Baker ([email or web address]). ELISABETH BLAKE MD May 23, 2024 08:26
[2024-05-23 09:02] LABS: Urine Bacteria None Seen /hpf (None Seen)
[2024-05-23 09:18] LABS: Urine Blood Negative /uL (Negative); Urine Clarity Turbid (Clear); Urine Color Yellow (Yellow); Urine Hyaline Cast FEW /lpf (0 - 2); Urine Protein, UAD TRACE (Negative); Urine Specific Gravity 1.022 (1.001-1.035); Urine Squamous Epithelial Cell FEW /hpf (<5); Urine Urobilinogen Normal (Negative); Urine WBC 1 /hpf (0 - 5)
[2024-05-23] MEDS ORDERED: NITROGLYCERIN 0.4 MG SL TAB SL PRN ×2 (11:30)
[2024-05-23] MEDS ORDERED: LORazepam 0.5 MG TAB PO PRN (11:30)
[2024-05-23] MEDS ORDERED: MORPHINE SULFATE INJ 2 MG/ml SYRG IV PRN (11:30)
[2024-05-23] MEDS ORDERED: DEXTROSE (50%) 50ML SYRG IV PRN (11:30)
[2024-05-23] MEDS ORDERED: MORPHINE SULFATE 4 MG/ML SYR/VIAL IV PRN (11:30)
[2024-05-23] MEDS ORDERED: ONDANSETRON HCL 4 MG/2 ML VIAL IV PRN (11:30)
[2024-05-23] MEDS ORDERED: ACETAMINOPHEN 325 MG TAB PO PRN (11:30)
[2024-05-23] MEDS ORDERED: traZODone HCL 50 MG TAB PO PRN (11:45)
--- NOTE | 2024-05-23 11:46 | DVHHP2 ---
History of Present Illness Reason for Visit: chest pain History of Present Illness Candie Hernandez is a 89YO F with pmHx of CAD, HTN, HLD, DM, COPD, AFIB, Hypothyroidism, CHF, Anxiety, Appendetomy, hysterectomy, PM, tonsillectomy, and nightly home O2 use of 2LNC who presents to the ED with chest pain x 1 day. Patient reported the chest pain woke her up this morning at 5am and "it felt like someone was sitting on my chest" constant 10/10 pain. Patient reports no aggravating or alleviating factors. She immediately came to the ED for evaluation. Patient reports she uses a FWW at home and she is compliant with her medications. She reports she visits her diversional therapist's assistant at [place] regularly. Patient denies shortness of breath, headache, lightheadness, dizziness, abdominal pain, N/V/D, fever, and chills. Cardiovascular: AFIB, CAD, CHF, HTN, hyperipidemia Pulmonary: COPD Psych: Anxiety Endocrine: Diabetes, Hypothyroidism Past Surgical History: Appendectomy, Hysterectomy, Tonsillectomy Past Surgical History PM > 5 years ago Family History: None Smoke: No ALCOHOL: none Drugs: None Lives: with Family Domestic Violence: Neg Review of Systems Constitutional: No: Fever, Chills, Sweats, Weakness, Malaise, Other Eyes: No: Pain, Vision change, Conjunctivae inflammation, Eyelid inflammation, Other, Redness ENT: No: Ear pain, Ear discharge, Nose pain, Nose discharge, Nose congestion, Mouth pain, Mouth swelling, Throat pain, Throat swelling, Other Respiratory: No: Cough, Dry, Shortness of breath, SOB with excertion, Wheezing, Hemoptysis, Pleuritic Pain, Sputum, Wheezing, Other Cardiovascular: Chest Pain; No: Palpitations, Orthopnea, Paroxysmal Noc. Dyspnea, Edema, Lt Headedness, Other Gastrointestinal: No: Nausea, Vomiting, Abdominal Pain, Diarrhea, Constipation, Melena, Hematochezia, Other Genitourinary: No Dysuria, No Frequency, No Incontinence, No Hematuria, No Retention, No Other Musculoskeletal: No: other, neck pain, shoulder pain, arm pain, back pain, hand pain, leg pain, foot pain Skin: No: Rash, Lesions, Jaundice, Bruising, Other Neurological: No: Weakness, Numbness, Incoordination, Change in speech, Confus ion, Seizures, Other Allergies: Coded Allergies: Milk-related Compounds (Verified Allergy, Unknown, 03/11/23) DAIRY Naproxen (Verified Allergy, Unknown, 12/31/22) Sulfa Drugs (Verified Allergy, Unknown, 12/31/22) Tetracycline (Verified Allergy, Unknown, 12/31/22) Uncoded Allergies: ADHESIVE TAPE (Allergy, Unknown, 12/04/23) Exam Vital Signs Vital Signs Date Time Temp Pulse Resp B/P (MAP) Pulse Ox O2 Delivery O2 Flow Rate FiO2 05/23/24 09:00 60 18 133/68 (89) 98 05/23/24 09:00 Room Air* 0 21 05/23/24 08:15 98.2 98.2 General Appearance: Alert, Oriented X3, Cooperative, No acute distress HEENT: Atraumatic, PERRLA, EOMI, Mucous membr. moist/pink Respiratory: Clear to auscultation, Normal air movement Cardiovascular: Normal S1, Normal S2, No murmurs Abdominal: Normal bowel sounds, Soft, No tenderness, No hepatospenomegaly Extremities: No clubbing, No cyanosis, No edema, Normal pulses, No tenderness/swelling Skin: No rashes, No breakdown, No significant lesion Neuro: Normal gait, Normal speech, Normal tone, Sensation intact Psych/Mental Status: Mental status NL, Mood NL Labs/Xrays Labs Test 05/23/24 10:00 05/23/24 08:08 05/23/24 07:12 Range/Units Troponin I High Sensitivity 3 L </=34 ng/L Urine Color Yellow Yellow Urine Clarity Turbid H Clear Urine pH 8.0 5.0-9.0 Urine Specific [place] 1.022 1.001-1.035 Urine Protein Trace H Negative Urine Ketones Negative Negative Urine Blood Negative Negative /uL Urine Nitrite Negative Negative Urine Bilirubin Negative Negative Urine Urobilinogen Normal Negative mg/dL Urine Leukocyte Esterase Negative Negative /uL Urine RBC 1 0 - 4 /hpf Urine WBC 1 0 - 5 /hpf Urine Squamous Epithelial Cells Few <5 /hpf Urine Bacteria None seen None Seen /hpf Urine Hyaline Casts Few 0 - 2 /lpf Urine Glucose Normal Normal mg/dL White Blood Count 6.1 4.4-10.8 10^3/uL Red Blood Count 4.19 4.0-5.20 10^6/uL Hemoglobin 13.1 12.2-16.2 g/dL Hematocrit 39.4 36.0-46.0 % Mean Corpuscular Volume 93.9 80.0-100.0 fL Mean Corpuscular Hemoglobin 31.1 28.0-32.0 pg Mean Corpuscular Hemoglobin Concent 33.2 32.0-36.0 g/dL Red Cell Distribution Width 13.9 11.8-14.3 % Platelet Count 203 140-450 10^3/uL Mean Platelet Volume 8.2 6.9-10.8 fL Neutrophils (%) (Auto) 51.3 37.0-80.0 % Lymphocytes (%) (Auto) 36.6 10.0-50.0 % Monocytes (%) (Auto) 8.3 0.0-12.0 % Eosinophils (%) (Auto) 2.5 0.0-7.0 % Basophils (%) (Auto) 1.3 0.0-2.0 % Neutrophils # (Auto) 3.1 1.6-8.6 10 ^3/uL Lymphocytes # (Auto) 2.2 0.4-5.4 10 ^3/uL Monocytes # (Auto) 0.5 0-1.3 10 ^3/uL Eosinophils # (Auto) 0.2 0-0.8 10 ^3/uL Basophils # (Auto) 0.1 0-0.2 10 ^3/uL Nucleated Red Blood Cells 0.0 % Sodium Level 142 136-145 mmol/L Potassium Level 4.3 3.5-5.1 mmol/L Chloride Level 107 98-107 mmol/L Carbon Dioxide Level 29 20-31 mmol/L Anion Gap 6 5-15 Blood Urea Nitrogen 12 9-23 mg/dL Creatinine 0.91 0.550-1.02 mg/dL Glomerular Filtration Rate Calc 61 >90 mL/min BUN/Creatinine Ratio 13.2 10.0-20.0 Serum Glucose 90 74-106 mg/dL Calcium Level 9.6 8.7-10.4 mg/dL B-Type Natriuretic Peptide 111.43 0-100 pg/mL EXAM: XR Chest, 1 View CLINICAL INDICATION: cp TECHNIQUE: Frontal view of the chest. COMPARISON: XY CHEST XRAY 1 VIEW on DOS: 12/31/22 FINDINGS: LUNGS AND PLEURAL SPACES: Unremarkable. No consolidation. No pneumothorax. No acute cardiopulmonary process. HEART: Unremarkable. No cardiomegaly. MEDIASTINUM: Unremarkable. Normal mediastinal contour. BONES/JOINTS: Unremarkable. No acute fracture. TUBES, LINES AND DEVICES: Left-sided cardiac pacemaker. OTHER FINDINGS: . . IMPRESSION: No acute cardiopulmonary process. Assessment/Plan Assessment/Plan Assessment/Plan: Atypical chest pain R/O ACS cards cx troponin trend trop x 2 negative ua labs am labs ekg ekg am lipid panel echo tsh cxr PM per patient has 2 more years left Afib CAD continue home meds - amio, apixaban HTN CHF continue home meds - lasix, amlodipine, digoxin, and telmisartan HLD simvastatin DM HgbA1c ISS and accuchecks Anxiety trazadone - home meds meclizine Hypothyroidism levothyroxine - continue home meds COPD home o2 at night 2LC prn resp txs montelukast - home meds FEN/PPX diet hl dvt ppx pud ppx omepprazole - continue home med Discussed plan of care with patient and nurse Admit to tele Home medications reconciled Plan discussed with: Patient My Orders Orders - 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 Procedure Category Date Status Time * Cardiology Consult CONS 05/23/24 Transmitted 11:21 Admit ADMIT 05/23/24 Transmitted 11:21 Code Status CODE 05/23/24 Transmitted 11:21 Vital Signs SARAH 05/23/24 Transmitted 11:21 Cardiac DIET 05/23/24 Transmitted Diet-2gna,Lofat,Lochol Lunch Lipitor 40mg Hs PHA 05/23/24 Transmitted Hi-Intensity 22:00 Morphine Sulfate PHA 05/23/24 Transmitted Injection 11:30 Acetaminophen Tablet PHA 05/23/24 Transmitted (Tylenol Tablet) 11:30 Lorazepam Tablet PHA 05/23/24 Transmitted (Ativan Tablet) 11:30 Docusate Sodium PHA 05/24/24 Transmitted Capsule (Colace 10:00 Complete Blood Count LAB 05/24/24 Verified 04:00 Comprehensive LAB 05/24/24 Verified Metabolic Panel 04:00 Chest Xray 1 View XY 05/24/24 Transmitted 04:00 Nitroglycerin PHA 05/23/24 Transmitted Sublingual (Ntrostat 11:30 Ondansetron Hcl PHA 05/23/24 Transmitted (Zofran) 11:30 Electrocardigram EKG 05/23/24 Transmitted 11:21 Troponin-I Hs LAB 05/23/24 Transmitted 11:21 Cardiac SARAH 05/23/24 Transmitted Rehabilitation - Outpa Nitroglycerin PHA 05/23/24 Transmitted Sublingual (Ntrostat 11:30 Morphine Sulfate PHA 05/23/24 Transmitted Injection 11:30 Notify Md Of Changes [facility] 05/23/24 Transmitted From Base 11:21 Fringe Knotter For [facility] 05/23/24 Transmitted 24 Hours 11:21 Emergency Dysrhythmia [facility] 05/23/24 Transmitted Protocol 11:21 Rhythm Strips Once [facility] 05/23/24 Transmitted Every Shift 11:21 Oxygen By Nasal RT 05/23/24 Transmitted Cannula 11:21 Date of Service: May 23, 2024 Billing Provider: GABRIEL ROE Common Visit Codes: [id number] INP/OBS CARE (MOD) GABRIEL ROE May 23, 2024 11:46
[2024-05-23] MEDS: InsuLIN REG 1unit/0.01ml Soln (100units/ml) SC SCH (12:00)
[2024-05-23 12:19] LABS: Triglycerides 104 mg/dL (< 150)
[2024-05-23 12:20] LABS: LDL Cholesterol 86 mg/dL (< 100)
[2024-05-23 12:21] LABS: Cholesterol 153 mg/dL (< 200); HDL Cholesterol 51 mg/dL (40-59)
[2024-05-23] MEDS ORDERED: AMIO200T13 PO (12:24)
[2024-05-23] MEDS ORDERED: TELM1TAB35 PO (12:24)
[2024-05-23] MEDS: ACCU-CHEK COMFORT CURVE STRIP VI SCH (12:48)
[2024-05-23] MEDS: COD LIVER OIL PO SCH (14:00)
[2024-05-23] MEDS ORDERED: MECLIZINE HCL 25 MG TAB PO SCH (17:41)
[2024-05-23] MEDS: GABAPENTIN 300 MG CAP PO SCH (17:45)
[2024-05-23] MEDS: PANTOPRAZOLE 40 MG TAB PO SCH (17:45)
[2024-05-23] MEDS: S ADENOSYLMETHIONINE 400 MG PO SCH (18:00)
--- NOTE | 2024-05-23 18:59 | ECG ---
[facility] Test Date: 2024-05-23 Test Time: 06:58:09 Pat Name: RACHEL BAR Department: er Room: 0276T Gender: F Outreach Coordinator: hawk : 1935 Requested By: ELISABETH ATKINSON Order Number: [id number] Reading MD: Aram Monroe Measurements Intervals [place] Rate: 119 P: 5 OR: 231 QRS: -14 QRSD: 92 T: -39 QT: 299 QTc: 421 Interpretive Statements Atrial-paced complexes Ventricular bigeminy Prolonged OR interval Abnormal R-wave progression, early transition Left ventricular hypertrophy Inferior infarct, old Lead(s) V6 were not used for morphology analysis Electronically Signed On 05-29-2024 9:55:31 PST by Aram Monroe Please click the below link to view image of tracing.
[2024-05-23] MEDS ORDERED: ATORVASTATIN 20 MG TAB PO SCH (22:00)
[2024-05-23] MEDS: ATORVASTATIN 20 MG TAB PO SCH (22:02)
[2024-05-23] MEDS: APIXABAN 2.5 MG TAB PO SCH (22:02)
[2024-05-24] VITALS (15 sets, daily range): BP systolic 121–158; BP diastolic 37–57; PULSE 59–78; RESP 14–19; TEMP 97–98.2; O2SAT 94–100
[2024-05-24] MEDS: LEVOTHYROXINE SODIUM 50 MCG TAB PO SCH (06:21)
--- NOTE | 2024-05-24 06:29 | DVH ---
CHEST RADIOGRAPH Indication: CHEST PAIN Technique: Single frontal view of the chest was obtained Comparison: XY CHEST PORTABLE on DOS: 05/23/24, XY CHEST XRAY 1 VIEW on DOS: 12/31/22 IMPRESSION: Heart appears normal in size. The lungs appear clear without focal airspace opacity, effusion, or pn eumothorax. Triple lead left cardiac device.
[2024-05-24 06:59] LABS: Basophils # (auto) 0.1 10 ^3/uL (0-0.2); Eosinophils # (auto) 0.1 10 ^3/uL (0-0.8); Eosinophils % (auto) 1.4 % (0.0-7.0); Hematocrit 37.1 % (36.0-46.0); Hemoglobin 12.5 g/dL (12.2-16.2); Lymphocytes # (auto) 1.4 10 ^3/uL (0.4-5.4); Lymphocytes % (auto) 20.3 % (10.0-50.0); Mean Corpuscular Hemoglobin 31.7 pg (28.0-32.0); Mean Corpuscular Hgb Conc. 33.8 g/dL (32.0-36.0); Mean Corpuscular Volume 93.6 fL (80.0-100.0); Monocytes # (auto) 0.6 10 ^3/uL (0-1.3); Monocytes % (auto) 8.2 % (0.0-12.0); Neutrophils # (auto) 4.9 10 ^3/uL (1.6-8.6); Neutrophils % (auto) 69.1 % (37.0-80.0); Platelet Count (auto) 186 10^3/uL (140-450); Red Blood Cells 3.96 10^6/uL (4.0-5.20); Red Cell Distribution Width 13.8 % (11.8-14.3); White Blood Cell 7.1 10^3/uL (4.4-10.8)
[2024-05-24 07:18] LABS: Alanine Aminotransferase 25 U/L (7-40); Albumin 3.8 g/dL (3.2-4.8); Alkaline Phosphatase 104 U/L (46-116); Anion Gap 6 (5-15); Aspartate Aminotransferase 25 U/L (13-40); Bilirubin, Total 0.5 mg/dL (0.2-1.0); Blood Urea Nitrogen 15 mg/dL (9-23); Calcium 9.8 mg/dL (8.7-10.4); Carbon Dioxide 30 mmol/L (20-31); Chloride 106 mmol/L (98-107); Glucose 90 mg/dL (74-106); Potassium 4.3 mmol/L (3.5-5.1); Sodium 142 mmol/L (136-145)
[2024-05-24 07:19] LABS: Total Protein 5.9 g/dL (5.7-8.2)
[2024-05-24] MEDS ORDERED: CYANOCOBALAMIN (B-12) 1000 MCG/1 ML VIAL SUBCUT SCH (08:00)
[2024-05-24] MEDS: FUROSEMIDE 20 MG TAB PO SCH (08:29)
[2024-05-24] MEDS: POTASSIUM CHLORIDE 8 MEQ TAB PO SCH (08:29)
[2024-05-24] MEDS: METOPROLOL SUCCINATE XL 50 MG TAB PO SCH (08:30)
[2024-05-24] MEDS: CHOLECALCIFEROL (VITD3) 1,000UNIT=25mCg TAB PO SCH (08:31)
[2024-05-24] MEDS: DOCUSATE SOD 100 MG CAP PO SCH (08:32)
[2024-05-24] MEDS: amLODIPine BESYLATE 5 MG TAB PO SCH (08:34)
[2024-05-24] MEDS: MONTELUKAST SODIUM 10 MG TAB PO SCH (08:35)
[2024-05-24] MEDS: METHYLSULFONYLMETHANE 1000 MG PO SCH (08:37)
[2024-05-24] MEDS: FERROUS SULFATE PO SCH (08:46)
[2024-05-24] MEDS: MAGNESIUM OXIDE 500 MG PO SCH (08:47)
--- NOTE | 2024-05-24 09:55 | DVHSR ---
APPROVED REPORT EXAM: Two-dimensional and M-mode echocardiogram with Doppler and color Doppler. Blood Pressure: 133/68 mmHg INDICATION Chest Pain RISK FACTORS Obesity: Height: 5'3, Weight: 131 DIMENSIONS LVDd4.0 (3.8-5.7cm)LA (2D)3.7 (1.9-4.0cm)Aortic Root3.5 (2.0-3.7cm) LVDs2.7 (2.5-4.0cm)LA (MM) (1.9-4.0cm)Aortic Cusp Exc1.5 (1.5-2.0cm) EF (%) 60.0 (55-70%)Rt. Atrium2.5 (1.9-4.0cm)Asc. Aorta2.9 cm IVSd1.4 (0.7-1.1cm)RV (D) (1.8-2.4cm) PWd1.4 (0.7-1.1cm) Mitral Valve MitralMitral Stenosis E wave0.63m/sMV Mean GR.mmHg A wave0.95m/sMV Peak GR.26mmHg E/A ratio0.72D MVAcm2 DECEL [id number] 1/2 Timems Aortic Valve Aortic ValveAortic Stenosis V11.06m/Ben Mean GR.4mmHg V21.34m/Ben Peak GR.7mmHg LVOT Diameter1.9 (1.8-2.4cm)Doppler AVA2.24cm2 Pulmonic Valve V20.96m/s Tricuspid Valve TR Velocity1.98m/s [id number] Other Information Quality : Technically LimitedRhythm : Technically limited study due to body habitus.patient position. Conclusion lvef 60% by visual estimate mild LVH RV pacing lead is present trivial pericardial effusion noted
[2024-05-24] MEDS ORDERED: DIGOXIN 0.125 MG TAB PO SCH (10:00)
[2024-05-24] MEDS: ALBUTEROL SULF 2.5 MG/0.5ML(0.5%) NEB SOLN ONE (14:28)
[2024-05-24] MEDS: IPRATROPIUM BROM 0.5 MG/2.5ML INH SOL ONE (14:30)
[2024-05-24] MEDS: ALBUTEROL MEDNEB 2.5 mg/3ml NEB NEB PRN (14:32)
--- NOTE | 2024-05-24 16:57 | DVHPNRES ---
Progress Note Date Seen: May 24, 2024 Resident Creating Document: [email or web address] AnguianoKYLE RESIDENT Medical Necessity Reason Pt with a Central, PICC or Fol: No Subjective Review of Systems Patient is a 89y/o female with a past medical history as described below came to the ED with the chief complaint of Acute chest pain. patient reports chest pain which started early in the morning on saturdary which woke the patient up from sleep, severe in intensity, pressure like described as someone sitting on the chest, radiation to the left arm and was not relieved on taking nitroglycerin. patient has history of fall in december, no fractures but was in a rehab facility and uses a FWW to ambulate. Patient denied shortness of breath, palpitations, dizziness, N/V/D, fever or chills. No recent sick contacts. Initial 12 lead ECG showed no changes suggesting acute ischaemia. Troponin levels were within normal limits. Past medical history: CHF, HTN, HLD, T2DM, COPD, AFIB, Hypothyroidism Past surgical history: Appendectomy, Hysterectomy, Tonsillectomy, B/L cataract surgery Family history: non significant Social history: denies smoking, drugs, alcohol use Home medications: Apixaban 2.5mg bid, amiodarone 200mg qd, amlodipine 5mg, digoxin 0.25mg qd, gabapentin 800mg tid, levothyroxine 50mcg, metoprolol succinate 25mg qd , telmisartan 40mg qd review of systems Patient is seen and examined at the bedside Alert and oriented X 4 Denies chest pain, shortness of breath, palpitations Objective vital signs Vital Sign Date Time Temp Pulse Resp B/P (MAP) Pulse Ox O2 Delivery O2 Flow Rate FiO2 05/24/24 16:20 98.1 60 18 121/37 (65) 94 98.1 05/24/24 14:32 Nasal Cannula 3.0 05/24/24 14:32 32 Total Intake and Output 05/23/24 05/23/24 05/24/24 15:00 23:00 07:00 Intake Total 400 ml Output Total 1250 ml Balance -850 ml medications Current Medications Medications Dose Ordered Sig/Jasmyne Route Start Time Stop Time Status Last Admin Dose Admin Atorvastatin Calcium 40 mg HS PO 05/23/24 22:00 05/23/24 22:02 40 MG Acetaminophen 650 mg Q6HP PRN PO 05/23/24 11:30 Lorazepam 0.5 mg Q6HP PRN PO 05/23/24 11:30 Docusate Sodium 100 mg DAILY PO 05/24/24 10:00 05/24/24 08:32 100 MG Ondansetron HCl 4 mg Q4HP PRN IV 05/23/24 11:30 Nitroglycerin 0.4 mg Q5MINP PRN SL 05/23/24 11:30 Morphine Sulfate 2 mg Q30M PRN IV 05/23/24 11:30 Diagnostic Test (Pha) 1 strip IQ4HR 05/23/24 12:00 05/24/24 16:28 1 STRIP Insulin Human Regular IQ4HR SC 05/23/24 12:00 Dextrose 50 ml UD PRN IV 05/23/24 11:30 Amlodipine Besylate 5 mg DAILY PO 05/24/24 10:00 05/24/24 08:34 5 MG Apixaban 2.5 mg BID PO 05/23/24 22:00 05/24/24 08:34 2.5 MG Furosemide 20 mg DAILY PO 05/24/24 10:00 05/24/24 08:29 20 MG Levothyroxine Sodium 50 mcg DAILY@0700 PO 05/24/24 07:00 05/24/24 08:32 50 MCG Montelukast Sodium 10 mg DAILY PO 05/24/24 10:00 05/24/24 08:35 10 MG Potassium Chloride 8 meq DAILY PO 05/24/24 10:00 05/24/24 08:29 8 MEQ Trazodone HCl 100 mg QHSP PRN PO 05/23/24 11:45 Cyanocobalamin 2,500 mcg DAILY@BREAKFAST SUBCUT 05/24/24 08:00 Hold Albuterol 2.5 mg Q4HPRN PRN NEB 05/23/24 16:15 05/24/24 14:32 2.5 MG Cholecalciferol 5,000 unit DAILY PO 05/24/24 10:00 05/24/24 08:31 5,000 UNIT Patient Own Medication 2,200 mg TID PO 05/23/24 14:00 Digoxin 0.25 mg DAILY PO 05/24/24 10:00 Hold Patient Own Medication 18 mg DAILY PO 05/24/24 10:00 Gabapentin 300 mg TID PO 05/23/24 14:00 05/24/24 14:07 300 MG Patient Own Medication 500 mg DAILY PO 05/24/24 10:00 Meclizine HCl 12.5 mg TID PO 05/23/24 17:41 Hold Patient Own Medication 1,000 mg DAILY PO 05/24/24 10:00 Metoprolol Succinate 25 mg DAILY@BREAKFAST PO 05/24/24 08:00 05/24/24 08:30 25 MG Pantoprazole Sodium 40 mg DAILY@DINNER PO 05/23/24 17:30 05/23/24 17:45 40 MG Patient Own Medication 400 mg BIDBRS PO 05/23/24 18:00 Patient Own Medication 30 mg DAILY PO 05/24/24 10:00 Ipratropium [place] 0.5 mg Q6HR NEB 05/24/24 18:00 Albuterol 2.5 mg Q6HR NEB 05/24/24 18:00 Examination Physical Examination Gen - no pallor, no icterus, no cyanosis, no clubbing, no LAD, no edema Skin - Patients skin is warm and dry. HEENT - normocephalic, atraumatic, moist mucous membranes. Neck - full ROM, no LAD, no JVD Pulmonary - B/L equal breath sounds , no crackles, no wheezing. cardiovascular - normal S1,S2 heard. no murmurs heard. peripheral pulses normal radial 2+, pedal 2+. GI - soft abdomen without tenderness to palpation. no hepatospleenomegaly. Bowel sounds normoactive Neurological - Patient is A/O X 3. Bilateral upper extremity strength 5/5, bilateral lower extremity strength 5/5, no facial droop, normal speech, no tremor, no sensory deficits laboratory and microbiology Laboratory Tests 05/24/24 06:33 Test 05/24/24 06:33 Range/Units Serum Glucose 90 74-106 mg/dL Problem List/Assessment/Plan Problem List/Assessment/Plan Assessment and plan # Acute chest pain, typical # ?Unstable angina # H/o Heart failure with preserved EF and a pacemaker # Atrial fibrillation # PE less likely - troponin levels within normal limits - ECG shows no evidence of acute ischaemia - Telemonitor ECG prints shows some reciprocal changes in the anterior leads - continued on home medications - Cardiology consult pending # Hypothyroidism - continue on levothyroxine 50mcg # COPD - uses O2 at night - on room air - Duonebs prn - chest X ray shows no acute cardiopulmonary disease, left lower lobe atelectasis Goals of care discussed with the patient for over 25mins. DNR Plan discussed with Plan discussed with: Patient Sepsis reassessment post fluid Capillary Refill: < 3 seconds Date of Service: May 24, 2024 Billing Provider: HOLLY MURRAY MD Common Visit Codes: [id number] INP/OBS CARE(HIGH) JULIUS OLSEN RESIDENT May 24, 2024 16:57 HOLLY MURRAY MD May 24, 2024 23:58
[2024-05-24] MEDS: ALBUTEROL SULF 2.5 MG/0.5ML(0.5%) NEB SOLN NEB SCH (18:16)
[2024-05-24] MEDS: IPRATROPIUM BROM 0.5 MG/2.5ML INH SOL NEB SCH (18:16)
[2024-05-24] MEDS: GABAPENTIN 300 MG CAP PO SCH (22:00)
[2024-05-25] VITALS (15 sets, daily range): BP systolic 115–142; BP diastolic 31–73; PULSE 56–65; RESP 14–20; TEMP 97.7–98.1; O2SAT 92–99
[2024-05-25 07:14] LABS: Basophils # (auto) 0.1 10 ^3/uL (0-0.2); Basophils % (auto) 1.1 % (0.0-2.0); Eosinophils # (auto) 0.1 10 ^3/uL (0-0.8); Eosinophils % (auto) 0.9 % (0.0-7.0); Hematocrit 36.7 % (36.0-46.0); Hemoglobin 13.1 g/dL (12.2-16.2); Lymphocytes # (auto) 1.5 10 ^3/uL (0.4-5.4); Lymphocytes % (auto) 23.4 % (10.0-50.0); Mean Corpuscular Hemoglobin 32.9 pg (28.0-32.0); Mean Corpuscular Hgb Conc. 35.7 g/dL (32.0-36.0); Mean Corpuscular Volume 92.3 fL (80.0-100.0); Monocytes # (auto) 0.6 10 ^3/uL (0-1.3); Monocytes % (auto) 8.7 % (0.0-12.0); Neutrophils # (auto) 4.3 10 ^3/uL (1.6-8.6); Neutrophils % (auto) 65.9 % (37.0-80.0); Platelet Count (auto) 194 10^3/uL (140-450); Red Blood Cells 3.98 10^6/uL (4.0-5.20); Red Cell Distribution Width 13.7 % (11.8-14.3); White Blood Cell 6.5 10^3/uL (4.4-10.8)
[2024-05-25 07:27] LABS: Alanine Aminotransferase 22 U/L (7-40); Albumin 3.9 g/dL (3.2-4.8); Alkaline Phosphatase 104 U/L (46-116); Anion Gap 7 (5-15); Aspartate Aminotransferase 21 U/L (13-40); BUN/Creatinine Ratio 14.7 (10.0-20.0); Bilirubin, Total 0.5 mg/dL (0.2-1.0); Blood Urea Nitrogen 14 mg/dL (9-23); Calcium 9.7 mg/dL (8.7-10.4); Carbon Dioxide 30 mmol/L (20-31); Chloride 105 mmol/L (98-107); Glucose 88 mg/dL (74-106); Potassium 3.9 mmol/L (3.5-5.1); Sodium 142 mmol/L (136-145); Total Protein 6.1 g/dL (5.7-8.2)
[2024-05-25] MEDS: LOSARTAN POTASSIUM 25 MG TAB PO SCH (09:25)
[2024-05-25] MEDS: HYDROcodone-ACET 5/325MG TAB PO PRN (09:35)
[2024-05-25 11:05] LABS: Free T3 2.28 pg/mL (2.3-4.2); Free T4 (Free Thyroxine) 1.01 ng/dL (0.89-1.76)
[2024-05-25] MEDS: guaiFENesin-DM 100/10mg/5ml SYR PO ONE (14:43)
--- NOTE | 2024-05-25 15:52 | DVHPNRES ---
Progress Note Date Seen: May 25, 2024 Resident Creating Document: BOB ARZATE RESDIENT Medical Necessity Reason Pt with a Central, PICC or Fol: No Subjective Review of Systems Patient is a 89y/o female with a past medical history as described below came to the ED with the chief complaint of Acute chest pain. patient reports chest pain which started early in the morning on saturdary which woke the patient up from sleep, severe in intensity, pressure like described as someone sitting on the chest, radiation to the left arm and was not relieved on taking nitroglycerin. patient has history of fall in december, no fractures but was in a rehab facility and uses a FWW to ambulate. Patient denied shortness of breath, palpitations, dizziness, N/V/D, fever or chills. No recent sick contacts. Initial 12 lead ECG showed no changes suggesting acute ischaemia. Troponin levels were within normal limits. Past medical history: CHF, HTN, HLD, T2DM, COPD, AFIB, Hypothyroidism Past surgical history: Appendectomy, Hysterectomy, Tonsillectomy, B/L cataract surgery Family history: non significant Social history: denies smoking, drugs, alcohol use Home medications: Apixaban 2.5mg bid, amiodarone 200mg qd, amlodipine 5mg, digoxin 0.25mg qd, gabapentin 800mg tid, levothyroxine 50mcg, metoprolol succinate 25mg qd , telmisartan 40mg qd Today, 05/25, the patient seen and examined at the bedside. Patient is feeling better since admission and has no active complaint. Changes from previous H/P or p: No Changes, Changes Objective vital signs Vital Sign Date Time Temp Pulse Resp B/P (MAP) Pulse Ox O2 Delivery O2 Flow Rate FiO2 05/25/24 13:00 97.7 61 16 133/42 (72) 92 97.7 05/25/24 11:11 Nasal Cannula 2.0 05/25/24 11:11 28 Total Intake and Output 05/24/24 05/24/24 05/25/24 15:00 23:00 07:00 Intake Total 600 ml 500 ml Output Total 1200 ml 1200 ml Balance -600 ml -700 ml medications Current Medications Medications Dose Ordered Sig/Jasmyne Route Start Time Stop Time Status Last Admin Dose Admin Atorvastatin Calcium 40 mg HS PO 05/23/24 22:00 05/24/24 21:10 40 MG Acetaminophen 650 mg Q6HP PRN PO 05/23/24 11:30 Lorazepam 0.5 mg Q6HP PRN PO 05/23/24 11:30 Docusate Sodium 100 mg DAILY PO 05/24/24 10:00 05/25/24 09:22 100 MG Ondansetron HCl 4 mg Q4HP PRN IV 05/23/24 11:30 Nitroglycerin 0.4 mg Q5MINP PRN SL 05/23/24 11:30 Morphine Sulfate 2 mg Q30M PRN IV 05/23/24 11:30 Diagnostic Test (Pha) 1 strip IQ4HR 05/23/24 12:00 05/25/24 11:39 1 STRIP Insulin Human Regular IQ4HR SC 05/23/24 12:00 Dextrose 50 ml UD PRN IV 05/23/24 11:30 Amlodipine Besylate 5 mg DAILY PO 05/24/24 10:00 05/25/24 09:22 5 MG Apixaban 2.5 mg BID PO 05/23/24 22:00 05/25/24 09:24 2.5 MG Furosemide 20 mg DAILY PO 05/24/24 10:00 05/25/24 09:24 20 MG Montelukast Sodium 10 mg DAILY PO 05/24/24 10:00 05/25/24 09:24 10 MG Potassium Chloride 8 meq DAILY PO 05/24/24 10:00 05/25/24 09:23 8 MEQ Trazodone HCl 100 mg QHSP PRN PO 05/23/24 11:45 Cyanocobalamin 2,500 mcg DAILY@BREAKFAST SUBCUT 05/24/24 08:00 Hold Cholecalciferol 5,000 unit DAILY PO 05/24/24 10:00 05/25/24 09:24 5,000 UNIT Digoxin 0.25 mg DAILY PO 05/24/24 10:00 Hold Patient Own Medication 500 mg DAILY PO 05/24/24 10:00 Meclizine HCl 12.5 mg TID PO 05/23/24 17:41 Hold Metoprolol Succinate 25 mg DAILY@BREAKFAST PO 05/24/24 08:00 05/24/24 08:30 25 MG Pantoprazole Sodium 40 mg DAILY@DINNER PO 05/23/24 17:30 05/24/24 18:07 40 MG Ipratropium [place] 0.5 mg Q6HR NEB 05/24/24 18:00 05/25/24 11:11 0.5 MG Albuterol 2.5 mg Q6HR NEB 05/24/24 18:00 05/25/24 11:11 2.5 MG Gabapentin 600 mg TID PO 05/24/24 22:00 05/25/24 13:00 600 MG Losartan Potassium 25 mg DAILY PO 05/25/24 10:00 05/25/24 09:25 25 MG Acetaminophen/ Hydrocodone Bitart 1 tab Q6HPRN PRN PO 05/24/24 21:30 05/25/24 09:35 1 TAB Guaifenesin/ Dextromethorphan 10 ml Q6HP PRN PO 05/25/24 14:30 Examination General Appearance: Alert, Oriented X3, Cooperative, No acute distress HEENT: Atraumatic, PERRLA, EOMI, Mucous membrane moist/pink Respiratory: Clear to auscultation, Normal air movement Cardiovascular: Regular rate, Normal S1, Normal S2, No murmurs, no chest wall tenderness Abdominal: Normal bowel sounds, Soft, No tenderness, No hepatospenomegaly, No masses Extremities: No clubbing, No cyanosis, No edema, Normal pulses, No tenderness/swelling Skin: No rashes, No breakdown, No significant lesion Neuro: Normal gait, Normal speech, Strength at 5/5 X4 ext, Normal tone, Sensation intact, Cranial nerves 3-12 NL, Reflexes 2+ Psych/Mental Status: Mental status NL, Mood NL laboratory and microbiology Laboratory Tests 05/25/24 06:15 Test 05/25/24 06:15 Range/Units Serum Glucose 88 74-106 mg/dL Labs and/or images reviewed: Labs reviewed by me, Image(s) reviewed by me Problem List/Assessment/Plan Problem List/Assessment/Plan This is an 89-year-old female with past medical history of CHF, hypertension, hyperlipidemia, diabetes type 2, has COPD, atrial fibrillation, hypothyroidism, and pacemaker presented to the hospital with central comparison chest pain. Admitted on 05/23. Acute chest pain likely due to ACS, Possible Unstable angina H/o Heart failure with preserved EF and a pacemaker History of Atrial fibrillation Hypertension History of b.i.d. Echo shows LVH mild, with left ventricular EF 60%, trace pericardial effusion troponin levels within normal limits ECG shows no evidence of acute ischaemia Continue amlodipine 5 mg daily, furosemide 20 mg daily, metoprolol 25 mg daily, losartan 25 mg daily Cardiology on the board, planned for the coronary angiogram for tomorrow Pacemaker check by the [facility], shows normal functioning PT evaluation Hypothyroidism continue on levothyroxine 50mcg COPD, no exacerbation Chronic cough, guaifenesin p.r.n. uses O2 at night Duonebs prn Continue montelukast 10 mg daily chest X ray shows no acute cardiopulmonary disease, left lower lobe atelectasis DIET: NPO from midnight, coronary angiogram for tomorrow DVT prophylax: Stopped apixaban, for tomorrow angiogram GI prophylaxis: Protonix 40 mg Bowel regim: Docusate 100 mg p.o. daily Code status: Goal of care discussed for more than 25 minutes, DNR DISPOSITION: Telemetry Patient's status discussed with the patient and the daughter at the bedside. Case discussed with Dr. Kevin Plan discussed with: Patient, Daughter, Other My Orders My Orders Orders - BOB ARZATE RESDIDELMY Procedure Category Date Status Time Electrocardigram EKG 05/25/24 Logged 10:25 Guaifenesin-Dextromet PHA 05/25/24 In Process Liquid (Robitussin 14:30 Complete Blood Count LAB 05/26/24 Verified 04:00 Comprehensive LAB 05/26/24 Verified Metabolic Panel 04:00 Sepsis reassessment post fluid Capillary Refill: < 3 seconds Date of Service: May 25, 2024 Billing Provider: MIRYAM MORA MD Common Visit Codes: [id number] INP/OBS CARE(HIGH) Secondary Visit Codes: [id number] CARE PLAN 30 MINUTES BOB ARZATE RESDIENT May 25, 2024 15:52 MIRYAM MORA MD May 27, 2024 09:22
--- NOTE | 2024-05-25 16:43 | DVHCONRES ---
Date Seen: May 25, 2024 Resident Creating Document: LARRY PIÑA RESIDENT Reason for Consultation Chest Pain History of Present Illness RACHEL BAR is a 89-year-old female with a PMH of CHF, HTN, HLD, type 2 DM, COPD, AFib, hypothyroidism presented to the ED with the chief complaints of chest pain since Saturday morning. Patient reported she woke up on Saturday moaning 5:00 a.m. with a chest pressure, initially substernal, later radiated to left shoulder, no aggravating factors , taken nitro at home but not relieved, after coming to hospital, after morphine the pain has been improved. On my assessment patient reported she never experienced this kind of chest pressure before. Patient denies fever, nausea, vomiting, palpitations, diaphoresis, and other acute associated symptoms. Past Medical History CHF, HTN, HLD, T2DM, COPD, AFIB, Hypothyroidism Past Surgical History Appendectomy, Hysterectomy, Tonsillectomy, B/L cataract surgery,Pacemaker[facility]) Family History: FH: coronary arteriosclerosis G8 FATHER, Onset:Unknown FH: tuberculosis G8 SISTER, Onset:Unknown FHx: heart failure sister, Onset:Unknown Hypertension G8 MOTHER, Onset:Unknown Family History Reviewed, noncontributory Social History Lives with family. Denies smoking, alcohol and other drug abuse Allergies: Coded Allergies: Milk-related Compounds (Verified Allergy, Unknown, 03/11/23) DAIRY Naproxen (Verified Allergy, Unknown, 12/31/22) Sulfa Drugs (Verified Allergy, Unknown, 12/31/22) Tetracycline (Verified Allergy, Unknown, 12/31/22) Uncoded Allergies: ADHESIVE TAPE (Allergy, Unknown, 12/04/23) Allergies Naproxen, sulfa drugs, tetracyclines, milk related compounds, adhesive tape Home Meds Active Scripts Amiodarone Hcl (Amiodarone Hcl) 200 Mg Tab, 200 MG PO DAILY for 30 Days, #30 TAB 2 Refills Prov:MAGDA NIX MD 01/01/23 Reported Medications Telmisartan (Telmisartan) 40 Mg Tab, 1 TAB PO DAILY 05/23/24 Meclizine Hcl (Meclizine Hcl) 12.5 Mg Tab, 1 TAB PO TID for 20 Days, #60 12/13/23 Potassium Chloride (Klor-Con 8) 8 Meq Tab, 1 TAB PO DAILY 12/13/23 Gabapentin (Gabapentin) 800 Mg Tab, 1 TAB PO TID 12/13/23 Levothyroxine Sodium (Levothyroxine Sodium) 50 Mcg Tab, 1 TAB PO DAILY 12/13/23 Magnesium Oxide (MAGNESIUM OXIDE) 400 Mg Tab, 500 MG PO DAILY, TAB 12/13/23 Trazodone Hcl (Trazodone Hcl) 50 Mg Tab, 2 TAB PO QHSP PRN for ANXIETY 12/13/23 Montelukast Sodium (MONTELUKAST SODIUM) 10 Mg Tab, 1 TAB PO DAILY 12/13/23 Vitamin B12 (Vitamin B-12) 1,000 Mcg/1 Ml Ij, 2500 MCG PO DAILY@BREAKFAST, INJ 01/01/23 Cholecalciferol (VITAMIN D3) 2,000 Unit Tab, 5000 UNITS PO DAILY, TAB 01/01/23 Zinc Gluconate (ZINC) 100 Mg Tab, 30 MG PO DAILY, TAB 01/01/23 Kgdgmhprypq-Lszybtkyaizw-Mqqqh (Trelegy Ellipta 100-62.5-25 Mcg/INH) 1 Aer Aer, 1 AER IN, AER 01/01/23 Simvastatin (Simvastatin) 20 Mg Tab, 20 MG PO DAILY@DINNER, TAB 01/01/23 S-Adenosylmethionine (SOURAV E) 400 Mg Tab, 400 MG PO BIDBRS, TAB 01/01/23 Omeprazole (Omeprazole Dr) 40 Mg Cap, 40 MG PO DAILY@DINNER, CAP 01/01/23 Metoprolol Succinate (Metoprolol Succinate Er) 25 Mg Tab, 25 MG PO DAILY@BREAKFAST, TAB 01/01/23 Methylsulfonylmethane (MSM) 900 Mg Cap, 1000 MG PO DAILY, CAP 01/01/23 Furosemide (Lasix) 20 Mg Tb, 20 MG PO DAILY, TAB 01/01/23 Ferrous Sulfate (Iron (Ferrous Sulfate)) 50 Mg Tab, 18 MG PO DAILY, TAB 01/01/23 Hydrocodone-Acetaminophen (Hydrocodone/Acetaminophen 5-325 mg) 1 Tab Tab, 1 TAB PO PRN, TAB 01/01/23 Apixaban Base (ELIQUIS) 2.5 Mg Tab, 2.5 MG PO BID, TAB 01/01/23 Cod Liver Oil (Cod Liver Oil) Oil, 2200 MG PO TID, EA 01/01/23 Amlodipine Besylate (Amlodipine Besylate) 5 Mg Tab, 5 MG PO DAILY, TAB 01/01/23 Albuterol Sulfate (Albuterol Sulfate) 0.083 % Neb, 1 VIAL NEB Q4HPRN PRN for SHORTNESS OF BREATH, #50 VIAL 01/01/23 Digoxin (Digoxin) 0.25 Mg Tab, 0.25 MG PO DAILY 02/12/12 Current Medications Current Medications Medications (Trade) Dose Ordered Sig/Jasmyne Route PRN Reason Start Time Stop Time Status Last Admin Ipratropium [place] (Atrovent Medneb) 0.5 mg Q6HR NEB 05/24/24 18:00 05/25/24 11:11 Albuterol (Ventolin Medneb) 2.5 mg Q6HR NEB 05/24/24 18:00 05/25/24 11:11 Gabapentin (Neurontin Capsule) 600 mg TID PO 05/24/24 22:00 05/25/24 13:00 Losartan Potassium (Cozaar Tablet) 25 mg DAILY PO 05/25/24 10:00 05/25/24 09:25 Acetaminophen/ Hydrocodone Bitart ([place] 5/325MG Tab) 1 tab Q6HPRN PRN PO MODERATE PAIN (4-6 PAIN SCALE) 05/24/24 21:30 05/25/24 09:35 Guaifenesin/ Dextromethorphan (Robitussin-Dm Liquid) 10 ml Q6HP PRN PO FOR COUGH 05/25/24 14:30 Review of Systems Patient seen and examined at the bedside. Patient reported no active pain today, reported no new complaints. Vital Signs Vital Signs Date Time Temp Pulse Resp B/P (MAP) Pulse Ox O2 Delivery O2 Flow Rate FiO2 05/25/24 13:00 97.7 61 16 133/42 (72) 92 97.7 05/25/24 11:11 Nasal Cannula 2.0 05/25/24 11:11 28 Physical Exam Pt is lying on bed General Appearance: Alert, Oriented X3, Cooperative, Not in acute distress HEENT: Atraumatic, Mucous membranes moist/pink Respiratory: Clear to auscultation, Normal air movement, No added sounds Cardiovascular: Regular rate, Normal S1, Normal S2, No murmurs Abdominal: Active bowel sounds, Soft, no distention, no tenderness Extremities: No edema, Normal pulses, No tenderness/swelling Skin: No Significant rash, except past surgical scars Neuro: Normal speech, sensorimotor deficits none Psych/Mental Status: Mental status NL, Mood NL Nurse was there as sharperone during examination Labs/Diagnostic Data Labs Test 05/25/24 16:01 05/25/24 06:15 05/24/24 14:44 05/23/24 11:58 Range/Units POC Glucose 103 70-106 mg/dl White Blood Count 6.5 4.4-10.8 10^3/uL Red Blood Count 3.98 L 4.0-5.20 10^6/uL Hemoglobin 13.1 12.2-16.2 g/dL Hematocrit 36.7 36.0-46.0 % Mean Corpuscular Volume 92.3 80.0-100.0 fL Mean Corpuscular Hemoglobin 32.9 H 28.0-32.0 pg Mean Corpuscular Hemoglobin Concent 35.7 32.0-36.0 g/dL Red Cell Distribution Width 13.7 11.8-14.3 % Platelet Count 194 140-450 10^3/uL Mean Platelet Volume 8.1 6.9-10.8 fL Neutrophils (%) (Auto) 65.9 37.0-80.0 % Lymphocytes (%) (Auto) 23.4 10.0-50.0 % Monocytes (%) (Auto) 8.7 0.0-12.0 % Eosinophils (%) (Auto) 0.9 0.0-7.0 % Basophils (%) (Auto) 1.1 0.0-2.0 % Neutrophils # (Auto) 4.3 1.6-8.6 10 ^3/uL Lymphocytes # (Auto) 1.5 0.4-5.4 10 ^3/uL Monocytes # (Auto) 0.6 0-1.3 10 ^3/uL Eosinophils # (Auto) 0.1 0-0.8 10 ^3/uL Basophils # (Auto) 0.1 0-0.2 10 ^3/uL Nucleated Red Blood Cells 0.0 % Sodium Level 142 136-145 mmol/L Potassium Level 3.9 3.5-5.1 mmol/L Chloride Level 105 98-107 mmol/L Carbon Dioxide Level 30 20-31 mmol/L Anion Gap 7 5-15 Blood Urea Nitrogen 14 9-23 mg/dL Creatinine 0.95 0.550-1.02 mg/dL Glomerular Filtration Rate Calc 58 >90 mL/min BUN/Creatinine Ratio 14.7 10.0-20.0 Serum Glucose 88 74-106 mg/dL Calcium Level 9.7 8.7-10.4 mg/dL Total Bilirubin 0.5 0.2-1.0 mg/dL Aspartate Amino Transferase (AST) 21 13-40 U/L Alanine Aminotransferase (ALT) 22 7-40 U/L Alkaline Phosphatase 104 46-116 U/L Total Protein 6.1 5.7-8.2 g/dL Albumin 3.9 3.2-4.8 g/dL Thyroid Stimulating Hormone (TSH) 5.06 H 0.55-4.78 uIU/mL Free Thyroxine (T4) Calculated 1.01 0.89-1.76 ng/dL Free Triiodothyronine (T3) pg/mL 2.28 L 2.3-4.2 pg/mL D-Dimer, Quantitative 0.60 H 0.0-0.49 mg/L FEU Troponin I High Sensitivity 3 L </=34 ng/L Test 05/23/24 08:08 05/23/24 07:12 Range/Units Urine Color Yellow Yellow Urine Clarity Turbid H Clear Urine pH 8.0 5.0-9.0 Urine Specific [place] 1.022 1.001-1.035 Urine Protein Trace H Negative Urine Ketones Negative Negative Urine Blood Negative Negative /uL Urine Nitrite Negative Negative Urine Bilirubin Negative Negative Urine Urobilinogen Normal Negative mg/dL Urine Leukocyte Esterase Negative Negative /uL Urine RBC 1 0 - 4 /hpf Urine WBC 1 0 - 5 /hpf Urine Squamous Epithelial Cells Few <5 /hpf Urine Bacteria None seen None Seen /hpf Urine Hyaline Casts Few 0 - 2 /lpf Urine Glucose Normal Normal mg/dL Hemoglobin A1c 5.4 <5.7 % A1C B-Type Natriuretic Peptide 111.43 0-100 pg/mL Triglycerides Level 104 < 150 mg/dL Cholesterol Level 153 < 200 mg/dL LDL Cholesterol 86 < 100 mg/dL HDL Cholesterol 51 40-59 mg/dL Assessment Chest pain rule out Acute Coronary Artery disease Chronic compensated HFpEF with EF-60% Pacemaker(Bi ventricular- [employer] 2016) Paroxysmal Afib with RVR, Stage 3A, with secondary hypercoagulable state Uncontrolled hypertension Hypothyroidism Hyperlipidemia COPD not in exacerbation Type 2 DM Obesity type 1 with BMI 30.9 Plan/Recommendation Reviewed echocardiogram showed EF 60% with mild LVH. As per Dr. Ashton, evaluated the patient, scheduled angiogram likely tomorrow. Plan discussed with the patient along with risks and benefits, agreed with the plan. Obtained consent for the procedure. Katheryn Hernandez. Plan discussed with: Patient, Other (Family & RN) Visit Coding Cardiology RES Date of Service: May 25, 2024 Billing Provider: MYRNA ASHTON MD Cardiology Common Codes: [id number] INP/OBS CARE (High) LARRY PIÑA RESIDENT May 25, 2024 16:43
--- NOTE | 2024-05-25 20:35 | DVHINCON2 ---
Date of service: May 25, [address] Kevin Reason for Consultation COPD, chronic cough, atelectasis History of Present Illness An 89-year-old woman with past medical history of COPD on 2 LNC at nighttime, CAD, hypertension, hyperlipidemia, DM type II, atrial fibrillation, hypothyr oidism, CHF, and anxiety, who presented to the ED on 05/23/24 with c/o chest pain x 1 day. Patient reported that the chest pain woke her up on day of presentation at 5am and "it felt like someone was sitting on my chest"; constant 10/10 pain. No aggravating or alleviating factors. She immediately presented to the ED for evaluation. Patient uses a FWW at home and she is compliant with her medications. She follows with a control analyst at [facility]. Patient denied shortness of breath, headache, lightheadedness, dizziness, abdominal pain, N/V/D, fever, and chills. Patient was admitted for further care, and pulmonary consultation is requested for evaluation and management d/t COPD, chronic cough and atelectasis. Review of Systems: 14-point review of systems negative unless otherwise noted above. Past Medical History: COPD on 2 LNC at nighttime, CAD, hypertension, hyperlipidemia, DM type II, atrial fibrillation, hypothyroidism, CHF, and anxiety Past Surgical History: Appendectomy, Hysterectomy, Tonsillectomy, Pacemaker > 5 years ago Medications: Reviewed. Allergies: No known drug allergies. Family History: No family history of premature CAD. No family history of lung disorders. Social History: Nonsmoker. No alcohol or illicit drug use. Family History: FH: coronary arteriosclerosis G8 FATHER, Onset:Unknown FH: tuberculosis G8 SISTER, Onset:Unknown FHx: heart failure sister, Onset:Unknown Hypertension G8 MOTHER, Onset:Unknown Allergies: Coded Allergies: Milk-related Compounds (Verified Allergy, Unknown, 03/11/23) DAIRY Naproxen (Verified Allergy, Unknown, 12/31/22) Sulfa Drugs (Verified Allergy, Unknown, 12/31/22) Tetracycline (Verified Allergy, Unknown, 12/31/22) Uncoded Allergies: ADHESIVE TAPE (Allergy, Unknown, 12/04/23) Home Meds Active Scripts Metoprolol Succinate (Toprol Xl) 25 Mg Tab, 1 TAB PO DAILY, #30 TAB 5 Refills Prov:CONNOR LENNON MD 05/26/24 Amiodarone Hcl (Amiodarone Hcl) 200 Mg Tab, 200 MG PO DAILY for 30 Days, #30 TAB 2 Refills Prov:MAGDA NIX MD 01/01/23 Reported Medications Telmisartan (Telmisartan) 40 Mg Tab, 1 TAB PO DAILY 05/23/24 Meclizine Hcl (Meclizine Hcl) 12.5 Mg Tab, 1 TAB PO TID for 20 Days, #60 12/13/23 Potassium Chloride (Klor-Con 8) 8 Meq Tab, 1 TAB PO DAILY 12/13/23 Gabapentin (Gabapentin) 800 Mg Tab, 1 TAB PO TID 12/13/23 Levothyroxine Sodium (Levothyroxine Sodium) 50 Mcg Tab, 1 TAB PO DAILY 12/13/23 Magnesium Oxide (MAGNESIUM OXIDE) 400 Mg Tab, 500 MG PO DAILY, TAB 12/13/23 Trazodone Hcl (Trazodone Hcl) 50 Mg Tab, 2 TAB PO QHSP PRN for ANXIETY 12/13/23 Montelukast Sodium (MONTELUKAST SODIUM) 10 Mg Tab, 1 TAB PO DAILY 12/13/23 Vitamin B12 (Vitamin B-12) 1,000 Mcg/1 Ml Ij, 2500 MCG PO DAILY@BREAKFAST, INJ 01/01/23 Cholecalciferol (VITAMIN D3) 2,000 Unit Tab, 5000 UNITS PO DAILY, TAB 01/01/23 Zinc Gluconate (ZINC) 100 Mg Tab, 30 MG PO DAILY, TAB 01/01/23 Sgbzjnvkxgz-Aojvezktoypz-Cgaaq (Trelegy Ellipta 100-62.5-25 Mcg/INH) 1 Aer Aer, 1 AER IN, AER 01/01/23 S-Adenosylmethionine (SOURAV E) 400 Mg Tab, 400 MG PO BIDBRS, TAB 01/01/23 Omeprazole (Omeprazole Dr) 40 Mg Cap, 40 MG PO DAILY@DINNER, CAP 01/01/23 Metoprolol Succinate (Metoprolol Succinate Er) 25 Mg Tab, 25 MG PO DAILY@BREAKFAST, TAB 01/01/23 Methylsulfonylmethane (MSM) 900 Mg Cap, 1000 MG PO DAILY, CAP 01/01/23 Furosemide (Lasix) 20 Mg Tb, 20 MG PO DAILY, TAB 01/01/23 Ferrous Sulfate (Iron (Ferrous Sulfate)) 50 Mg Tab, 18 MG PO DAILY, TAB 01/01/23 Hydrocodone-Acetaminophen (Hydrocodone/Acetaminophen 5-325 mg) 1 Tab Tab, 1 TAB PO PRN, TAB 01/01/23 Apixaban Base (ELIQUIS) 2.5 Mg Tab, 2.5 MG PO BID, TAB 01/01/23 Cod Liver Oil (Cod Liver Oil) Oil, 2200 MG PO TID, EA 01/01/23 Amlodipine Besylate (Amlodipine Besylate) 5 Mg Tab, 5 MG PO DAILY, TAB 01/01/23 Albuterol Sulfate (Albuterol Sulfate) 0.083 % Neb, 1 VIAL NEB Q4HPRN PRN for SHORTNESS OF BREATH, #50 VIAL 01/01/23 Digoxin (Digoxin) 0.25 Mg Tab, 0.25 MG PO DAILY 02/12/12 Discontinued Reported Medications Simvastatin (Simvastatin) 20 Mg Tab, 20 MG PO DAILY@DINNER, TAB 01/01/23 Current Medications Current Medications Medications (Trade) Dose Ordered Sig/Jasmyne Route PRN Reason Start Time Stop Time Status Last Admin Gabapentin (Neurontin Capsule) 600 mg TID PO 05/24/24 22:00 05/25/24 13:00 Losartan Potassium (Cozaar Tablet) 25 mg DAILY PO 05/25/24 10:00 05/25/24 09:25 Acetaminophen/ Hydrocodone Bitart (Marshall 5/325MG Tab) 1 tab Q6HPRN PRN PO MODERATE PAIN (4-6 PAIN SCALE) 05/24/24 21:30 05/25/24 09:35 Guaifenesin/ Dextromethorphan (Robitussin-Dm Liquid) 10 ml Q6HP PRN PO FOR COUGH 05/25/24 14:30 Vital Signs Vital Signs Date Time Temp Pulse Resp B/P (MAP) Pulse Ox O2 Delivery O2 Flow Rate FiO2 05/25/24 18:24 60 16 99 05/25/24 18:16 Room Air* 0 21 05/25/24 17:00 98.1 142/50 (80) 98.1 Physical Exam Gen.: Patient lying in bed in no apparent distress. On supplemental oxygen. Head: Normocephalic, atraumatic. Eyes: EOMI/PERRLA. Ears: Normal hearing. Normal anatomy. Neck/trachea: Trachea midline, supple. Nose: Normal external anatomy. Mouth: Moist mucous membranes. Chest: Decreased air entry bilaterally. No wheezing or rhonchi. Cardiovascular: Positive S1, positive S2. Regular rate and rhythm. Abdomen: Positive bowel sounds in all 4 quadrants. Soft, non-tender, non- distended. : Deferred. Rectal: Deferred. Skin: Warm, dry. Intact. Extremities: 2+ radial pulses bilaterally. No lower extremity edema. Neuro: Awake, alert, oriented x3. No gross motor or sensory deficits. Cranial nerves II through XII intact. Gait not assessed. Labs/Diagnostic Data Labs Test 05/25/24 16:01 05/25/24 06:15 05/24/24 14:44 05/23/24 11:58 Range/Units POC Glucose 103 70-106 mg/dl White Blood Count 6.5 4.4-10.8 10^3/uL Red Blood Count 3.98 L 4.0-5.20 10^6/uL Hemoglobin 13.1 12.2-16.2 g/dL Hematocrit 36.7 36.0-46.0 % Mean Corpuscular Volume 92.3 80.0-100.0 fL Mean Corpuscular Hemoglobin 32.9 H 28.0-32.0 pg Mean Corpuscular Hemoglobin Concent 35.7 32.0-36.0 g/dL Red Cell Distribution Width 13.7 11.8-14.3 % Platelet Count 194 140-450 10^3/uL Mean Platelet Volume 8.1 6.9-10.8 fL Neutrophils (%) (Auto) 65.9 37.0-80.0 % Lymphocytes (%) (Auto) 23.4 10.0-50.0 % Monocytes (%) (Auto) 8.7 0.0-12.0 % Eosinophils (%) (Auto) 0.9 0.0-7.0 % Basophils (%) (Auto) 1.1 0.0-2.0 % Neutrophils # (Auto) 4.3 1.6-8.6 10 ^3/uL Lymphocytes # (Auto) 1.5 0.4-5.4 10 ^3/uL Monocytes # (Auto) 0.6 0-1.3 10 ^3/uL Eosinophils # (Auto) 0.1 0-0.8 10 ^3/uL Basophils # (Auto) 0.1 0-0.2 10 ^3/uL Nucleated Red Blood Cells 0.0 % Sodium Level 142 136-145 mmol/L Potassium Level 3.9 3.5-5.1 mmol/L Chloride Level 105 98-107 mmol/L Carbon Dioxide Level 30 20-31 mmol/L Anion Gap 7 5-15 Blood Urea Nitrogen 14 9-23 mg/dL Creatinine 0.95 0.550-1.02 mg/dL Glomerular Filtration Rate Calc 58 >90 mL/min BUN/Creatinine Ratio 14.7 10.0-20.0 Serum Glucose 88 74-106 mg/dL Calcium Level 9.7 8.7-10.4 mg/dL Total Bilirubin 0.5 0.2-1.0 mg/dL Aspartate Amino Transferase (AST) 21 13-40 U/L Alanine Aminotransferase (ALT) 22 7-40 U/L Alkaline Phosphatase 104 46-116 U/L Total Protein 6.1 5.7-8.2 g/dL Albumin 3.9 3.2-4.8 g/dL Thyroid Stimulating Hormone (TSH) 5.06 H 0.55-4.78 uIU/mL Free Thyroxine (T4) Calculated 1.01 0.89-1.76 ng/dL Free Triiodothyronine (T3) pg/mL 2.28 L 2.3-4.2 pg/mL D-Dimer, Quantitative 0.60 H 0.0-0.49 mg/L FEU Troponin I High Sensitivity 3 L </=34 ng/L Test 05/23/24 08:08 05/23/24 07:12 Range/Units Urine Color Yellow Yellow Urine Clarity Turbid H Clear Urine pH 8.0 5.0-9.0 Urine Specific [place] 1.022 1.001-1.035 Urine Protein Trace H Negative Urine Ketones Negative Negative Urine Blood Negative Negative /uL Urine Nitrite Negative Negative Urine Bilirubin Negative Negative Urine Urobilinogen Normal Negative mg/dL Urine Leukocyte Esterase Negative Negative /uL Urine RBC 1 0 - 4 /hpf Urine WBC 1 0 - 5 /hpf Urine Squamous Epithelial Cells Few <5 /hpf Urine Bacteria None seen None Seen /hpf Urine Hyaline Casts Few 0 - 2 /lpf Urine Glucose Normal Normal mg/dL Hemoglobin A1c 5.4 <5.7 % A1C B-Type Natriuretic Peptide 111.43 0-100 pg/mL Triglycerides Level 104 < 150 mg/dL Cholesterol Level 153 < 200 mg/dL LDL Cholesterol 86 < 100 mg/dL HDL Cholesterol 51 40-59 mg/dL Assessment Impression: Chronic obstructive pulmonary disease Cough, chronic Chest pain. Atelectasis Obesity BMI 30.9 Plan: Supplemental oxygen 2 LPM NC Titrate to keep O2 sats above 92%. Taper O2 as tolerated. Continue bronchodilators. Singulair Antitussive - Robitussin DM for cough Incentive spirometry Monitor BP Eliquis 2.5 mg BID Pain control Avoid oversedation Diurese w/ Lasix as tolerated Monitor renal function. Monitor electrolytes. Supplement as necessary. Monitor ins and outs. Diet and lifestyle modifications for weight reduction Obesity - complicates all care GI prophylaxis - Protonix DVT prophylaxis. Prognosis: Poor given patient's multiple co-morbidities. Rest of plan per hospitalist and other consultants. A total of 76 minutes of clinical care time was spent reviewing the patient record, examining the patient, making a diagnostic and therapeutic plan, discussing this plan with the medical personnel, following up on diagnostic studies and following the patient for clinical stability excluding any and all procedures. At least 50% of this time was spent in direct, [id number] contact. Thank you Dr. Kevin for allowing me to participate in this patient's care. Further recommendations will depend on the patient's clinical course. Please do not hesitate to contact me if you have any questions or concerns. This medical document was created using an electronic medical record system with [employer] dictation system. Although these documentations are being carefully reviewed, there may still be some phonetic and typographical changes. The errors are purely typographical, due to imperfection on the software program, and do not reflect any compromise in the patient's medical care. Plan discussed with: Patient, Other (RN/MD Kevin) ZONIA GUALLPA MD May 25, 2024 20:35
[2024-05-25] MEDS: guaiFENesin-DM 100/10mg/5ml SYR PO PRN (21:37)
[2024-05-26] VITALS (15 sets, daily range): BP systolic 106–145; BP diastolic 43–75; PULSE 58–68; RESP 12–17; TEMP 97.8–98.6; O2SAT 91–99
[2024-05-26 06:37] LABS: Alanine Aminotransferase 23 U/L (7-40); Alkaline Phosphatase 104 U/L (46-116); Anion Gap 7 (5-15); BUN/Creatinine Ratio 16.1 (10.0-20.0); Blood Urea Nitrogen 15 mg/dL (9-23); Calcium 9.5 mg/dL (8.7-10.4); Carbon Dioxide 29 mmol/L (20-31); Chloride 106 mmol/L (98-107); Glucose 89 mg/dL (74-106); Potassium 4.1 mmol/L (3.5-5.1); Sodium 142 mmol/L (136-145)
[2024-05-26 06:38] LABS: Albumin 3.9 g/dL (3.2-4.8); Aspartate Aminotransferase 23 U/L (13-40); Bilirubin, Total 0.5 mg/dL (0.2-1.0); Total Protein 6.1 g/dL (5.7-8.2)
[2024-05-26 06:53] LABS: INR 1.08 (0.9-1.15); Partial Thromboplastin Time 27.6 SEC (24.5-34.5); Prothrombin Time 11.4 sec (9.3-11.8)
[2024-05-26 07:53] LABS: Basophils # (auto) 0.1 10 ^3/uL (0-0.2); Basophils % (auto) 1.3 % (0.0-2.0); Eosinophils # (auto) 0.1 10 ^3/uL (0-0.8); Eosinophils % (auto) 1.4 % (0.0-7.0); Hematocrit 38.3 % (36.0-46.0); Hemoglobin 12.9 g/dL (12.2-16.2); Lymphocytes # (auto) 1.6 10 ^3/uL (0.4-5.4); Lymphocytes % (auto) 24.7 % (10.0-50.0); Mean Corpuscular Hemoglobin 31.5 pg (28.0-32.0); Mean Corpuscular Hgb Conc. 33.8 g/dL (32.0-36.0); Mean Corpuscular Volume 93.3 fL (80.0-100.0); Monocytes # (auto) 0.6 10 ^3/uL (0-1.3); Monocytes % (auto) 8.7 % (0.0-12.0); Neutrophils % (auto) 63.9 % (37.0-80.0); Nucleated Red Blood Cells % 0.1 %; Platelet Count (auto) 214 10^3/uL (140-450); Red Cell Distribution Width 13.8 % (11.8-14.3); White Blood Cell 6.3 10^3/uL (4.4-10.8)
[2024-05-26] MEDS ORDERED: DEXTROSE (50%) 50ML SYRG IV PRN (10:15)
[2024-05-26] MEDS: IODIXANOL 320MG/ML 100ML BTL IV ONE (10:24)
[2024-05-26] MEDS: HEPARIN SODIUM (PORCINE) 5000 UNITS/ML 1ML VIAL ONE (10:34)
[2024-05-26] MEDS: VERAPAMIL 2.5MG/ML INJ 2ML VIAL IV ONE (10:34)
[2024-05-26] MEDS: ANGIOMAX 250 MG VIAL IV ONE (10:34)
[2024-05-26] MEDS: SODIUM CHL 0.9% 0 ML ONE (10:35)
[2024-05-26] MEDS: fentaNYL CITRATE 100 MCG/2 ML VL ONE (10:35)
[2024-05-26] MEDS: MIDAZOLAM HCL 2MG/2ML 2ml VIAL (1mg/ml) ONE (10:35)
[2024-05-26] MEDS: LIDOCAINE 2%HCL (LOCAL ANESTH.) INJ 20ML MDV ONE (10:35)
--- NOTE | 2024-05-26 10:56 | DVHPNRES ---
Progress Note Date Seen: May 26, 2024 Resident Creating Document: LARRY PIÑA RESIDENT Medical Necessity Reason Pt with a Central, PICC or Fol: No Subjective Review of Systems Patient seen and examined at the bedside. Patient reported improvement in her symptoms since admission, no active complaints reported. Patient reports: No new complaints, Feels better Objective vital signs Vital Sign Date Time Temp Pulse Resp B/P (MAP) Pulse Ox O2 Delivery O2 Flow Rate FiO2 05/26/24 10:23 96 Room Air 0.0 05/26/24 10:23 21 05/26/24 09:04 143/62 05/26/24 09:00 98.3 63 16 98.3 Total Intake and Output 05/25/24 05/25/24 05/26/24 15:00 23:00 07:00 Intake Total 1240 ml 600 ml Output Total 1000 ml 1100 ml Balance 240 ml -500 ml medications Current Medications Medications Dose Ordered Sig/Jasmyne Route Start Time Stop Time Status Last Admin Dose Admin Atorvastatin Calcium 40 mg HS PO 05/23/24 22:00 05/25/24 21:34 40 MG Acetaminophen 650 mg Q6HP PRN PO 05/23/24 11:30 Lorazepam 0.5 mg Q6HP PRN PO 05/23/24 11:30 Docusate Sodium 100 mg DAILY PO 05/24/24 10:00 05/25/24 09:22 100 MG Ondansetron HCl 4 mg Q4HP PRN IV 05/23/24 11:30 Nitroglycerin 0.4 mg Q5MINP PRN SL 05/23/24 11:30 Morphine Sulfate 2 mg Q30M PRN IV 05/23/24 11:30 Dextrose 50 ml UD PRN IV 05/23/24 11:30 Cancel Amlodipine Besylate 5 mg DAILY PO 05/24/24 10:00 05/26/24 09:04 5 MG Furosemide 20 mg DAILY PO 05/24/24 10:00 05/25/24 09:24 20 MG Montelukast Sodium 10 mg DAILY PO 05/24/24 10:00 05/26/24 09:04 10 MG Potassium Chloride 8 meq DAILY PO 05/24/24 10:00 05/25/24 09:23 8 MEQ Trazodone HCl 100 mg QHSP PRN PO 05/23/24 11:45 Cyanocobalamin 2,500 mcg DAILY@BREAKFAST SUBCUT 05/24/24 08:00 Hold Cholecalciferol 5,000 unit DAILY PO 05/24/24 10:00 05/25/24 09:24 5,000 UNIT Digoxin 0.25 mg DAILY PO 05/24/24 10:00 Hold Patient Own Medication 500 mg DAILY PO 05/24/24 10:00 Meclizine HCl 12.5 mg TID PO 05/23/24 17:41 Hold Metoprolol Succinate 25 mg DAILY@BREAKFAST PO 05/24/24 08:00 05/26/24 08:00 25 MG Pantoprazole Sodium 40 mg DAILY@DINNER PO 05/23/24 17:30 05/25/24 16:35 40 MG Ipratropium Erick 0.5 mg Q6HR NEB 05/24/24 18:00 05/26/24 05:59 0.5 MG Albuterol 2.5 mg Q6HR NEB 05/24/24 18:00 05/26/24 05:59 2.5 MG Gabapentin 600 mg TID PO 05/24/24 22:00 05/26/24 05:36 600 MG Losartan Potassium 25 mg DAILY PO 05/25/24 10:00 05/25/24 09:25 25 MG Acetaminophen/ Hydrocodone Bitart 1 tab Q6HPRN PRN PO 05/24/24 21:30 05/25/24 21:37 1 TAB Guaifenesin/ Dextromethorphan 10 ml Q6HP PRN PO 05/25/24 14:30 05/25/24 21:37 10 ML Diagnostic Test (Pha) 1 strip ACHS 05/26/24 11:30 Insulin Human Regular ACHS SC 05/26/24 11:30 Dextrose 50 ml UD PRN IV 05/26/24 10:15 Examination Pt is lying on bed General Appearance: Alert, Oriented X3, Cooperative, Not in acute distress HEENT: Atraumatic, Mucous membranes moist/pink Respiratory: Clear to auscultation, Normal air movement, No added sounds Cardiovascular: Regular rate, Normal S1, Normal S2, No murmurs Abdominal: Active bowel sounds, Soft, no distention, no tenderness Extremities: No edema, Normal pulses, No tenderness/swelling Skin: No Significant rash, except past surgical scars Neuro: Normal speech, sensorimotor deficits none Psych/Mental Status: Mental status NL, Mood NL Nurse was there as sharperone during examination laboratory and microbiology Laboratory Tests 05/26/24 05:18 Test 05/26/24 05:18 Range/Units Serum Glucose 89 74-106 mg/dL Labs and/or images reviewed: Labs reviewed by me, Image(s) reviewed by me Problem List/Assessment/Plan Problem List/Assessment/Plan Chest pain, Mild nonobstructive coronary artery disease Chronic compensated HFpEF with EF-60% Pacemaker(Bi ventricular- [employer] 2016) Paroxysmal Afib with RVR, Stage 3A, with secondary hypercoagulable state Uncontrolled hypertension Hypothyroidism Hyperlipidemia COPD not in exacerbation Type 2 DM Obesity type 1 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 Fair): Reviewed echocardiogram showed EF 60% with mild LVH. As per Dr. Ann, completed angiogram which showed mild nonobstructive CAD, advised aggressive medical therapy with risk factor modification including lipid-lowering agent and anticoagulation due to given history of AFib. Advised about healthy lifestyle habits including diet, exercise and to follow up with primary business trainer on outpatient. Resume Eliquis. We are signing off. Consult again if needed. Thank you for allowing us in participating patient care. Plan discussed with: Patient My Orders My Orders Orders - LARRY PIÑA Procedure Category Date Status Time Npo Except For SARAH 05/26/24 In Process Medications 00:01 Npo After Midnight DIET 05/26/24 Transmitted Breakfast Obtain Consent For: ORDERS 05/25/24 Transmitted 17:07 D/C Tlc [facility] 05/25/24 In Process 17:07 Shave Both Groins [facility] 05/25/24 In Process 17:07 Provide Education [facility] 05/25/24 In Process Materials 17:07 Cl Left Heart Cath CL 05/25/24 Logged 17:07 Comprehensive LAB 05/27/24 Verified Metabolic Panel 04:00 Obtain Consent For SARAH 05/25/24 In Process Anesthesia 17:07 Dietary Evaluation Review Comments: Continue current plan of care Expected Outcomes/Goals: F/U in 3-5 days Sepsis reassessment post fluid Capillary Refill: < 3 seconds Visit Coding Cardiology RES Date of Service: May 26, 2024 Billing Provider: MYRNA ANN MD Cardiology Common Codes: [id number] INP/OBS CARE(Mod) LARRY PIÑA RESIDENT May 26, 2024 10:56
--- NOTE | 2024-05-26 11:25 | DVHOP2 ---
Operative Report -Cardiology Report Details Date: 05/26/24 Preop Diagnosis: Angina pectoralis. Postop Diagnosis: Coronary angiography reveals nonobstructive coronary artery disease with a mild atherosclerotic changes in the proximal mid LAD, as well as the 1st obtuse marginal branch. No other significant disease was noted. Surgeon: Wilson Ann MD Anesthesiologist: Conscious sedation using25 mcg of fentanyl as well as a mg IV midazolam. It was given under direct supervision of myself the primary tap grinder in the presence of attending nurses. Patient was monitored for total of35 minutes without obvious complication. Anesthesia: Local Consent: The patient was informed of the risks and benefits of the procedure. These include but are not limited to complications of anesthesia, postoperative infection, incomplete relief of symptoms, recurrence of symptoms, damage to blood vessels, nerves and tendons, deep venous thrombosis, pulmonary embolism a nd possible need for repeat surgery in the future. Indications for Surgery: RACHEL BAR is a 89-year-old female with a PMH of CHF, HTN, HLD, type 2 DM, COPD, AFib, hypothyroidism presented to the ED with the chief complaints of chest pain since Saturday morning. Patient reported she woke up on Saturday moaning 5:00 a.m. with a chest pressure, initially substernal, later radiated to left shoulder, no aggravating factors , taken nitro at home but not relieved, after coming to hospital, after morphine the pain has been improved. On my assessment patient reported she never experienced this kind of chest pressure before. Patient denies fever, nausea, vomiting, palpitations, diaphoresis, and other acute associated symptoms. Name of Procedure Performed 1. Left heart catheterization with left ventricular end-diastolic pressure measurement. 2. Selective right and left coronary angiography utilizing right transradial approach. 3. Conscious sedation using25 mcg of fentanyl as well as a mg IV midazolam. Procedure Details Procedure Details: Procedure note and vascular access: After informed consent was obtained, risks, benefits, complications, alternatives were discussed in details with the patient who agrees to have the procedure done. At the beginning of the procedure, the right wrist and right groin area were prepped and draped in the regular sterile fashion. Patient received conscious sedation with25 mcg of fentanyl as well as a mg of midazolam. Thereafter a total of2 cc of 1% xylocaine was given to the right wrist area before a six Tamazight sheath was placed using modified Seldinger technique without difficulty. A cocktail of 2.5 mg of verapamil as well as 100 mcg of nitroglycerin were given intra-arterial to prevent vasospasm. After crossing the aortic arch a total of 3000 heparin were given intravenously. Findings were as follows: 1. Left heart catheterization with left ventricular end-diastolic pressure measurement: With the help of a tiger five Tamazight catheter as well as a J-tip wire we were able to cross the aortic valve and measured left ventricular end-diastolic pressure which was normal at 2 mm of mercury. There was no gradient across the aortic valve on the pullback. 2. Selective right and left coronary angiography utilizing right transradial approach: 1. The right coronary artery comes off the right coronary cusp it has mild irregularity of the proximal part bifurcated distally into large posterior descending artery as well as a large posterolateral branch. It is a dominant system, has no significant atherosclerotic plaquing. 2. The left main is very short it bifurcates into a large left anterior descending artery as well as a large left circumflex vessel, the left main is free of any significant disease. 3. Left anterior descending artery is a large vessel with transapical course it gives rise to two diagonal branches, it has long tubular mild disease at 30% right attic curving point, but no discrete stenosis was noted. 4. The left circumflex artery gives rise to a large 1st obtuse marginal branch that has ostial 40% disease the remaining part of the left circumflex artery has no significant diseases. Impression and plan: 1. Mild nonobstructive coronary artery disease as outlined above. 2. Normal left ventricular end-diastolic pressure. 3. Aggressive medical therapy, with risk factor modification anticoagulation given history of atrial fibrillation in addition to goal-directed therapy vessel left ventricular ventricular ejection fraction are warranted. Condition Good [facility] Clinical Frailty Scale [facility] Clinical Frailty Scale: Mildly Frail Dominance Dominance: Right Disposition WILSON ANN MD May 26, 2024 11:25
[2024-05-26] MEDS: InsuLIN REG 1unit/0.01ml Soln (100units/ml) SC SCH (11:30)
[2024-05-26] MEDS: ACCU-CHEK COMFORT CURVE STRIP VI SCH (12:53)
[2024-05-26] MEDS ORDERED: METO25TA36 PO (14:50)
--- NOTE | 2024-05-26 16:38 | DVHDSRES ---
Discharge Summary Date of Admission Resident Creating Document: LAYO CALLES RESDIENT May 23, 2024 at 11:21 Date of Discharge: May 26, 2024 Admitting Diagnosis Atypical chest pain to rule out ACS Labs/Diagnostic Data: Laboratory Results Test 05/26/24 05:18 05/26/24 04:05 05/25/24 06:15 05/24/24 14:44 White Blood Count 6.3 10^3/uL (4.4-10.8) Red Blood Count 4.10 10^6/uL (4.0-5.20) Hemoglobin 12.9 g/dL (12.2-16.2) Hematocrit 38.3 % (36.0-46.0) Mean Corpuscular Volume 93.3 fL (80.0-100.0) Mean Corpuscular Hemoglobin 31.5 pg (28.0-32.0) Mean Corpuscular Hemoglobin Concent 33.8 g/dL (32.0-36.0) Red Cell Distribution Width 13.8 % (11.8-14.3) Platelet Count 214 10^3/uL (140-450) Mean Platelet Volume 8.4 fL (6.9-10.8) Neutrophils (%) (Auto) 63.9 % (37.0-80.0) Lymphocytes (%) (Auto) 24.7 % (10.0-50.0) Monocytes (%) (Auto) 8.7 % (0.0-12.0) Eosinophils (%) (Auto) 1.4 % (0.0-7.0) Basophils (%) (Auto) 1.3 % (0.0-2.0) Neutrophils # (Auto) 4.0 10 ^3/uL (1.6-8.6) Lymphocytes # (Auto) 1.6 10 ^3/uL (0.4-5.4) Monocytes # (Auto) 0.6 10 ^3/uL (0-1.3) Eosinophils # (Auto) 0.1 10 ^3/uL (0-0.8) Basophils # (Auto) 0.1 10 ^3/uL (0-0.2) Nucleated Red Blood Cells 0.1 % Prothrombin Time 11.4 sec (9.3-11.8) Prothrombin Time INR 1.08 (0.9-1.15) Activated Partial Thromboplast Time 27.6 SEC (24.5-34.5) Sodium Level 142 mmol/L (136-145) Potassium Level 4.1 mmol/L (3.5-5.1) Chloride Level 106 mmol/L (98-107) Carbon Dioxide Level 29 mmol/L (20-31) Anion Gap 7 (5-15) Blood Urea Nitrogen 15 mg/dL (9-23) Creatinine 0.93 mg/dL (0.550-1.02) Glomerular Filtration Rate Calc 59 mL/min (>90) BUN/Creatinine Ratio 16.1 (10.0-20.0) Serum Glucose 89 mg/dL (74-106) Calcium Level 9.5 mg/dL (8.7-10.4) Total Bilirubin 0.5 mg/dL (0.2-1.0) Aspartate Amino Transferase (AST) 23 U/L (13-40) Alanine Aminotransferase (ALT) 23 U/L (7-40) Alkaline Phosphatase 104 U/L (46-116) Total Protein 6.1 g/dL (5.7-8.2) Albumin 3.9 g/dL (3.2-4.8) POC Glucose 99 mg/dl (70-106) Thyroid Stimulating Hormone (TSH) 5.06 uIU/mL (0.55-4.78) Free Thyroxine (T4) Calculated 1.01 ng/dL (0.89-1.76) Free Triiodothyronine (T3) pg/mL 2.28 pg/mL (2.3-4.2) D-Dimer, Quantitative 0.60 mg/L FEU (0.0-0.49) Test 05/23/24 11:58 05/23/24 08:08 05/23/24 07:12 Troponin I High Sensitivity 3 ng/L (</=34) Urine Color Yellow (Yellow) Urine Clarity Turbid (Clear) Urine pH 8.0 (5.0-9.0) Urine Specific [place] 1.022 (1.001-1.035) Urine Protein Trace (Negative) Urine Ketones Negative (Negative) Urine Blood Negative /uL (Negative) Urine Nitrite Negative (Negative) Urine Bilirubin Negative (Negative) Urine Urobilinogen Normal mg/dL (Negative) Urine Leukocyte Esterase Negative /uL (Negative) Urine RBC 1 /hpf (0 - 4) Urine WBC 1 /hpf (0 - 5) Urine Squamous Epithelial Cells Few /hpf (<5) Urine Bacteria None seen /hpf (None Seen) Urine Hyaline Casts Few /lpf (0 - 2) Urine Glucose Normal mg/dL (Normal) Hemoglobin A1c 5.4 % A1C (<5.7) B-Type Natriuretic Peptide 111.43 pg/mL (0-100) Triglycerides Level 104 mg/dL (< 150) Cholesterol Level 153 mg/dL (< 200) LDL Cholesterol 86 mg/dL (< 100) HDL Cholesterol 51 mg/dL (40-59) Other Laboratory Tests 05/26/24 05:18 Brief Hx & Hospital Course: Patient is a 89y/o female with a past medical history CHF, HTN, HLD, T2DM, COPD, AFIB, Hypothyroidism came to the ED with the chief complaint of Acute chest pain. patient reports chest pain which started early in the morning on saturdary which woke the patient up from sleep, severe in intensity, pressure like described as someone sitting on the chest, radiation to the left arm and was not relieved on taking nitroglycerin. patient has history of fall in december, no fractures but was in a rehab facility and uses a FWW to ambulate. Patient denied shortness of breath, palpitations, dizziness, N/V/D, fever or chills. No recent sick contacts. Initial 12 lead ECG showed no changes suggesting acute ischaemia. Troponin levels were within normal limits. Physical examination during admission, was unremarkable. Lab studies including serial trop I was within normal limits. During hospital admission, the patient was put on ACS protocol and continued home medication. EKG shows no significant ST or T-wave changes. Echocardiogram shows LVEF 60% with mild LVH. Pacemaker device, [employer], evaluated by company technical person, showed normal functioning. Cardiology evaluated the patient, and recommended angiography, angiography showed mild nonobstructive coronary artery disease, with normal left ventricular end-diastolic pressure, recommended medical therapy. On 05/26, patient clinically and hemodynamically was stable, discharge plan discussed with the patient and the patient was recommended to follow up with the PCP within 1 week after discharge and Cardiology on outpatient basis. The patient was recommended to continue home medicine. Consults/Reason for consult Cardiology: To rule out ACS Operations or Procedures [address] [address] Ph: [phone] DIAGNOSTIC IMAGING Diagnostic Imaging Report : [id number] Signed PATIENT: CANDIE HERNANDEZACCT: [id number] UNIT: [id number] : 1935 LOC: ER ROOM / BED: / AGE / SEX: 89 / F ADM STATUS: REG ER SERVICE 0722 ORDERING PHYSICIAN: ELISABETH BLAKE MD PROCEDURE(s): CXRP - CHEST PORTABLE REASON: cp ORDER NUMBER(s): [id number], ACCESSION NUMBER(s): [id number] EXAM: XR Chest, 1 View CLINICAL INDICATION: cp TECHNIQUE: Frontal view of the chest. COMPARISON: XY CHEST XRAY 1 VIEW on DOS: 12/31/22 FINDINGS: LUNGS AND PLEURAL SPACES: Unremarkable. No consolidation. No pneumothorax. No acute cardiopulmonary process. HEART: Unremarkable. No cardiomegaly. MEDIASTINUM: Unremarkable. Normal mediastinal contour. BONES/JOINTS: Unremarkable. No acute fracture. TUBES, LINES AND DEVICES: Left-sided cardiac pacemaker. OTHER FINDINGS: . . IMPRESSION: No acute cardiopulmonary process. ATED BY: TK HUANG MD DICTATED DATE/TIME: 05/23/24822 SIGNED BY: TK HUANG MD SIGNED DATE/TIME: 05/23/24822 CC: [place] [id number] Ph: [phone] DIAGNOSTIC IMAGING Diagnostic Imaging Report : [id number] Signed PATIENT: CANDIE HERNANDEZACCT: [id number] UNIT: [id number] : 1935 LOC[facility] AGE / SEX: 89 / F ADM STATUS: ADM IN SERVICE 1131 ORDERING PHYSICIAN: GABRIEL ROE PROCEDURE(s): ECIDC - ECHO 2D MODE CARDIAC DOP REASON: chest pain ORDER NUMBER(s): [id number], ACCESSION NUMBER(s): [id number] APPROVED REPORT EXAM: Two-dimensional and M-mode echocardiogram with Doppler and color Doppler. Blood Pressure: 133/68 mmHg INDICATION Chest Pain RISK FACTORS Obesity: Height: 5'3, Weight: 131 DIMENSIONS LVDd 4.0 (3.8-5.7cm) LA (2D) 3.7 (1.9-4.0cm) Aortic Root 3.5 (2.0- 3.7cm) LVDs 2.7 (2.5-4.0cm) LA (MM) (1.9-4.0cm) Aortic Cusp Exc 1.5 (1.5- 2.0cm) EF (%) 60.0 (55-70%) Rt. Atrium 2.5 (1.9-4.0cm) Asc. Aorta 2.9 cm IVSd 1.4 (0.7-1.1cm) RV (D) (1.8-2.4cm) PWd 1.4 (0.7-1.1cm) Mitral Valve Mitral Mitral Stenosis E wave 0.63m/s MV Mean GR. mmHg A wave 0.95m/s MV Peak GR. 26mmHg E/A ratio 0.7 2D MVA cm2 DECEL Time 178ms PRESS 1/2 Time ms Aortic Valve Aortic Valve Aortic Stenosis V1 1.06m/s AO Mean GR. 4mmHg V2 1.34m/s AO Peak GR. 7mmHg LVOT Diameter 1.9 (1.8-2.4cm) Doppler NOHEMI 2.24cm2 Pulmonic Valve V2 0.96m/s Tricuspid Valve TR Velocity 1.98m/s RVSP 19mmHg Other Information Quality : Technically Limited Rhythm : Technically limited study due to body habitus.patient position. Conclusion lvef 60% by visual estimate mild LVH RV pacing lead is present trivial pericardial effusion noted SIGNED BY: SHUN ROJAS MD SIGNED DATE/TIME: 05/24/24 0956 CC: [facility] Operative Report - Cardiology Patient Name: Candie Hernandez Unit Number: [id number] Date of : 1935 Patient Status: Admitted Inpatient Attending Doctor: Layo Calles Operative Report - Cardiology Operative Report -Cardiology Report Details Date: 05/26/24 Preop Diagnosis: Angina pectoralis. Postop Diagnosis: Coronary angiography reveals nonobstructive coronary artery disease with a mild atherosclerotic changes in the proximal mid LAD, as well as the 1st obtuse marginal branch. No other significant disease was noted. Surgeon: Wilson Ashton MD Anesthesiologist: Conscious sedation using25 mcg of fentanyl as well as a mg IV midazolam. It was given under direct supervision of myself the primary webmaster in the presence of attending nurses. Patient was monitored for total of35 minutes without obvious complication. Anesthesia: Local Consent: The patient was informed of the risks and benefits of the procedure. These include but are not limited to complications of anesthesia, postoperative infection, incomplete relief of symptoms, recurrence of symptoms, damage to blood vessels, nerves and tendons, deep venous thrombosis, pulmonary embolism and possible need for repeat surgery in the future. Indications for Surgery: CANDIE HERNANDEZ is a 89-year-old female with a PMH of CHF, HTN, HLD, type 2 DM, COPD, AFib, hypothyroidism presented to the ED with the chief complaints of chest pain since Saturday. Patient reported she woke up on Saturday moaning 5:00 a.m. with a chest pressure, initially substernal, later radiated to left shoulder, no aggravating factors , taken nitro at home but not relieved, after coming to hospital, after morphine the pain has been improved. On my assessment patient reported she never experienced this kind of chest pressure before. Patient denies fever, nausea, vomiting, palpitations, diaphoresis, and other acute associated symptoms. Name of Procedure Performed 1. Left heart catheterization with left ventricular end-diastolic pressure measurement. 2. Selective right and left coronary angiography utilizing right transradial approach. 3. Conscious sedation using25 mcg of fentanyl as well as a mg IV midazolam. Procedure Details Procedure Details: Procedure note and vascular access: After informed consent was obtained, risks, benefits, complications, alternatives were discussed in details with the patient who agrees to have the procedure done. At the beginning of the procedure, the right wrist and right groin area were prepped and draped in the regular sterile fashion. Patient received conscious sedation with25 mcg of fentanyl as well as a mg of midazolam. Thereafter a total of2 cc of 1% xylocaine was given to the right wrist area before a six Panamanian sheath was placed using modified Seldinger technique without difficulty. A cocktail of 2.5 mg of verapamil as well as 100 mcg of nitroglycerin were given intra-arterial to prevent vasospasm. After crossing the aortic arch a total of 3000 heparin were given intravenously. Findings were as follows: 1. Left heart catheterization with left ventricular end-diastolic pressure measurement: With the help of a tiger five Panamanian catheter as well as a J-tip wire we were able to cross the aortic valve and measured left ventricular end-diastolic pressure which was normal at 2 mm of mercury. There was no gradient across the aortic valve on the pullback. 2. Selective right and left coronary angiography utilizing right transradial approach: 1. The right coronary artery comes off the right coronary cusp it has mild irregularity of the proximal part bifurcated distally into large posterior descending artery as well as a large posterolateral branch. It is a dominant system, has no significant atherosclerotic plaquing. 2. The left main is very short it bifurcates into a large left anterior descending artery as well as a large left circumflex vessel, the left main is free of any significant disease. 3. Left anterior descending artery is a large vessel with transapical course it gives rise to two diagonal branches, it has long tubular mild disease at 30% right attic curving point, but no discrete stenosis was noted. 4. The left circumflex artery gives rise to a large 1st obtuse marginal branch that has ostial 40% disease the remaining part of the left circumflex artery has no significant diseases. Impression and plan: 1. Mild nonobstructive coronary artery disease as outlined above. 2. Normal left ventricular end-diastolic pressure. 3. Aggressive medical therapy, with risk factor modification anticoagulation given history of atrial fibrillation in addition to goal-directed therapy vessel left ventricular ventricular ejection fraction are warranted. Condition Good [facility] Clinical Frailty Scale [facility] Clinical Frailty Scale: Mildly Frail Dominance Dominance: Right Disposition 2 WILSON ASHTON MD May 26, 2024 11:25 Condition at Discharge: Good Final Diagnosis/Problems List Ruled out ACS Mild Nonobstructive coronary artery disease Possible stable angina Acute chest pain, likely due to stable angina Hypertension History of atrial fibrillation, status post pacemaker History of heart failure with preserved ejection fraction Hypothyroidism COPD with no exacerbation Chronic cough, likely due to COPD Ruled out pulmonary emboli Diabetes type 2 Obesity, type 1, BMI 30.9 Hyperlipidemia Anxiety Discharge Disposition: Home Discharge Instruct/Medications Diet: Cardiac 2g Na,low cholest Activity: No Restrictions, As Tolerated Follow Up/Referral: Follow up with the PCP within 1 week after discharge Follow up with the discharge Clinic Follow up with Cardiology on outpatient basis Medications: Continue home medicine Discharge Statement: "Patient was advised to return to the ER or call 911 if any headaches, dizziness, shortness of breath, chest pain, abdominal pain, bleeding, fevers, or worsening of medical condition. Patient was counseled about treatment plan, medications, possible side effects, patientverbalized understanding. All questions were answered to the best of my ability. This discharge took greater then 30 minutes in planning, reviewing documentation, counseling the patient, and discussing with other team members." ASSESSMENT ASSESSMENT Assessment Coronary angiography reveals nonobstructive coronary artery disease with amild atherosclerotic changes in the proximal mid LAD, as well as the 1stobtuse marginal branch. No other significant disease was noted. Date of Service: May 26, 2024 Billing Provider: CONNOR LENNON MD Common Visit Codes: 29539-BWI/OBS DISCH DAY >30min LAYO CALLES RESDIENT May 26, 2024 16:37 CONNOR LENNON MD May 26, 2024 18:27
--- NOTE | 2024-05-26 20:47 | DVHPN2 ---
Progress Note - Dictate Date Seen: May 26, 2024 Medical Necessity Reason Pt with a Central, PICC or Fol: No Subjective Patient seen and examined at bedside. Breathing comfortably on room air. Overnight events reviewed. vital signs Vital Sign Date Time Temp Pulse Resp B/P (MAP) Pulse Ox O2 Delivery O2 Flow Rate FiO2 05/26/24 18:06 97.9 60 17 05/26/24 17:00 136/75 (95) 98 05/26/24 10:23 Room Air 0.0 05/26/24 10:23 21 Total Intake and Output 05/25/24 05/25/24 05/26/24 15:00 23:00 07:00 Intake Total 1240 ml 600 ml Output Total 1000 ml 1100 ml Balance 240 ml -500 ml medications Current Medications Medications Dose Ordered Sig/Jasmyne Route Start Time Stop Time Status Last Admin Dose Admin Dextrose 50 ml UD PRN IV 05/23/24 11:30 Cancel objective Gen.: Patient lying in bed in no apparent distress. Breathing on room air. Head: Normocephalic, atraumatic. Eyes: EOMI/PERRLA. Ears: Normal hearing. Normal anatomy. Neck/trachea: Trachea midline, supple. Nose: Normal external anatomy. Mouth: Moist mucous membranes. Chest: Decreased air entry bilaterally. No wheezing or rhonchi. Cardiovascular: Positive S1, positive S2. Regular rate and rhythm. Abdomen: Positive bowel sounds in all 4 quadrants. Soft, non-tender, non- distended. : Deferred. Rectal: Deferred. Skin: Warm, dry. Intact. Extremities: 2+ radial pulses bilaterally. No lower extremity edema. Neuro: Awake, alert, oriented x3. No gross motor or sensory deficits. Cranial nerves II through XII intact. Gait not assessed. laboratory and microbiology Laboratory Tests 05/26/24 05:18 Test 05/26/24 05:18 Range/Units Serum Glucose 89 74-106 mg/dL Assessment/Plan Impression: Chronic obstructive pulmonary disease Cough, chronic Chest pain. Atelectasis Obesity Events: Breathing on room air No respiratory distress. Continue bronchodilators PRN On Singulair Incentive spirometry Accu-Cheks for glycemic monitoring Plan for cardiac catheterization. Labs and imaging reviewed. Rest of plan as noted below. Plan: Supplemental oxygen PRN Titrate to keep O2 sats above 92%. Continue bronchodilators. Singulair Incentive spirometry Pain control Avoid oversedation Monitor renal function. Monitor electrolytes. Supplement as necessary. Monitor ins and outs. Diet and lifestyle modifications for weight reduction Obesity - complicates all care GI prophylaxis - Protonix DVT prophylaxis. Prognosis: Poor given patient's multiple co-morbidities. Rest of plan per hospitalist and other consultants. A total of 51 minutes of clinical care time was spent reviewing the patient record, examining the patient, making a diagnostic and therapeutic plan, discussing this plan with the medical personnel, following up on diagnostic studies and following the patient for clinical stability excluding any and all procedures. At least 50% of this time was spent in direct, [id number]-awbh contact. Thank you Dr. Kevin for allowing me to participate in this patient's care. Further recommendations will depend on the patient's clinical course. Please do not hesitate to contact me if you have any questions or concerns. This medical document was created using an electronic medical record system with [email or web address] dictation system. Although these documentations are being carefully reviewed, there may still be some phonetic and typographical changes. The errors are purely typographical, due to imperfection on the software program, and do not reflect any compromise in the patient's medical care. Dietary Evaluation Review Comments: Continue current plan of care Expected Outcomes/Goals: F/U in 3-5 days Plan discussed with: Patient, Other (NICOLE Martínez) Capillary Refill: < 3 seconds ZONIA GUALLPA MD May 26, 2024 20:47
--- NOTE | 2024-06-02 10:36 | ECG ---
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
== END 2024-05-26 19:05 | disposition home or self-care (01) | DRG 286 ==
LOC: ER 06:50 → EDBD 06:50 → TELE 11:21 → TELE-WESTW 21:33
PROVIDERS: ADMIT Internal Medicine; ATTEND Internal Medicine
PROC: 4A023N7 Measurement of Cardiac Sampling and Pressure, Left Heart, Percutaneous Approach (ICD-10-PCS; principal; 2024-05-26)
PROC: B211YZZ Fluoroscopy of Multiple Coronary Arteries using Other Contrast (ICD-10-PCS; 2024-05-26)
DX: I11.0 Hypertensive heart disease with heart failure (principal); I50.33 Acute on chronic diastolic (congestive) heart failure; J98.11 Atelectasis; D68.69 Other thrombophilia; I25.110 Atherosclerotic heart disease of native coronary artery with unstable angina pectoris; E78.5 Hyperlipidemia, unspecified; Z66 Do not resuscitate; F41.9 Anxiety disorder, unspecified; J44.9 Chronic obstructive pulmonary disease, unspecified; G89.29 Other chronic pain; E03.9 Hypothyroidism, unspecified; E11.9 Type 2 diabetes mellitus without complications; E66.9 Obesity, unspecified; I48.0 Paroxysmal atrial fibrillation; Z91.048 Other nonmedicinal substance allergy status; Z88.1 Allergy status to other antibiotic agents; Z91.011 Allergy to milk products; Z90.710 Acquired absence of both cervix and uterus; Z90.49 Acquired absence of other specified parts of digestive tract; Z95.0 Presence of cardiac pacemaker; Z82.49 Family history of ischemic heart disease and other diseases of the circulatory system; Z68.30 Body mass index [BMI] 30.0-30.9, adult; Z88.2 Allergy status to sulfonamides
CPT/HCPCS: 36415; 71045; 80048; 80053; 80061; 81001; 82962; 83036; 83880; 84439; 84443; 84481; 84484; 85025; 85379; 85610; 85730; 93005; 93306; 93458; 94640; 97110; 97116; 97163; 99152; G0378; J2250; Q9967

== ENCOUNTER 2024-12-23 18:13 | Emergency (ER) | payer MEDICARE ==
[~2024-12-23] VITALS: Ht 152.4 cm; Wt 73.4 kg
[~2024-12-23 18:13] MED LIST changes: -FURO40TA4 PO; +METO25TA36 PO; -SIMV20TA20 PO; +TELM1TAB35 PO; -TELM40TA11 PO
[2024-12-23 18:39] VITALS: BP 149/49; PULSE 60; RESP 16; TEMP 97.9; O2SAT 96
[2024-12-23] MEDS ORDERED: OXYCODONE W/ ACETAMINOPHEN 5/325MG TABLET PO ONE (18:45)
--- NOTE | 2024-12-23 20:12 | DVH ---
EXAM: CT CHEST WITHOUT CONTRAST History: S/P FALL LEFT UPPER LAT CHEST INJURY/PAIN Comparison Study: CT CHST AB PEL WO CON-NO IV/ORAL on DOS: 03/09/23 TECHNIQUE: Multidetector CT of the chest was performed. Imaging was performed without IV contrast. Ax ial, coronal, and sagittal multiplanar reformats were obtained from the axial data set by the technol [email or web address]. Radiation Dose : CTDI vol 19.06 mGy, DLP 685.37 mGy*cm. Findings: Lungs: Left lower lobe granuloma. The lungs are otherwise clear. Pleura: Unremarkable Heart/Great vessels: No cardiomegaly or pericardial effusion. Mild coronary atherosclerosis. Mediastinum: Unremarkable Soft tissues/Bones: Moderate to severe multilevel degenerative changes of the thoracic spine Cholecystectomy. Left renal cyst. Impression: 1. No acute cardiopulmonary disease or evidence of an acute fracture.
--- NOTE | 2024-12-23 20:54 | ED.PDOC ---
Mult. trauma (HPI) HPI Comments PT REPORTS LEFT UNDER ARM PAIN AFTER MECHANICAL FALL INTO CORNER OF DESK, DENIES HITTING HEAD/LOC. PAINFUL TO PALPATION. NOTED ABRASION SUPERFICIAL. DENIES LOC, HEAD PAIN, NECK PAIN, BACK PAIN, CHEST PAIN, DIFFICULTY BREATHING, SHORTNESS OF BREATH. REPORTS NO NAUSEA OR VOMITING OR ABDOMINAL PAIN. Chief Complaint: Fall Injury Time Seen by MD: 18:33 Primary Care Provider: RAIZA Reviewed notes: Nurses Notes, Medications, Allergies Allergies: Coded Allergies: Milk-related Compounds (Verified Allergy, Unknown, 03/11/23) DAIRY Naproxen (Verified Allergy, Unknown, 12/31/22) Sulfa Drugs (Verified Allergy, Unknown, 12/31/22) Tetracycline (Verified Allergy, Unknown, 12/31/22) Uncoded Allergies: ADHESIVE TAPE (Allergy, Unknown, 12/04/23) Home Meds Active Scripts Metoprolol Succinate (Toprol Xl) 25 Mg Tab, 1 TAB PO DAILY, #30 TAB 5 Refills Prov:CONNOR LENNON MD 05/26/24 Amiodarone Hcl (Amiodarone Hcl) 200 Mg Tab, 200 MG PO DAILY for 30 Days, #30 TAB 2 Refills Prov:MAGDA NIX MD 01/01/23 Reported Medications Telmisartan (Telmisartan) 40 Mg Tab, 1 TAB PO DAILY 05/23/24 Meclizine Hcl (Meclizine Hcl) 12.5 Mg Tab, 1 TAB PO TID for 20 Days, #60 12/13/23 Potassium Chloride (Klor-Con 8) 8 Meq Tab, 1 TAB PO DAILY 12/13/23 Gabapentin (Gabapentin) 800 Mg Tab, 1 TAB PO TID 12/13/23 Levothyroxine Sodium (Levothyroxine Sodium) 50 Mcg Tab, 1 TAB PO DAILY 12/13/23 Magnesium Oxide (MAGNESIUM OXIDE) 400 Mg Tab, 500 MG PO DAILY, TAB 12/13/23 Trazodone Hcl (Trazodone Hcl) 50 Mg Tab, 2 TAB PO QHSP PRN for ANXIETY 12/13/23 Montelukast Sodium (MONTELUKAST SODIUM) 10 Mg Tab, 1 TAB PO DAILY 12/13/23 Vitamin B12 (Vitamin B-12) 1,000 Mcg/1 Ml Ij, 2500 MCG PO DAILY@BREAKFAST, INJ 01/01/23 Cholecalciferol (VITAMIN D3) 2,000 Unit Tab, 5000 UNITS PO DAILY, TAB 01/01/23 Zinc Gluconate (ZINC) 100 Mg Tab, 30 MG PO DAILY, TAB 01/01/23 Ijqrguksfxl-Jyiurjbnerwo-Vdavq (Trelegy Ellipta 100-62.5-25 Mcg/INH) 1 Aer Aer, 1 AER IN, AER 01/01/23 S-Adenosylmethionine (SOURAV E) 400 Mg Tab, 400 MG PO BIDBRS, TAB 01/01/23 Omeprazole (Omeprazole Dr) 40 Mg Cap, 40 MG PO DAILY@DINNER, CAP 01/01/23 Metoprolol Succinate (Metoprolol Succinate Er) 25 Mg Tab, 25 MG PO DAILY@BREAKFAST, TAB 01/01/23 Methylsulfonylmethane (MSM) 900 Mg Cap, 1000 MG PO DAILY, CAP 01/01/23 Furosemide (Lasix) 20 Mg Tb, 20 MG PO DAILY, TAB 01/01/23 Ferrous Sulfate (Iron (Ferrous Sulfate)) 50 Mg Tab, 18 MG PO DAILY, TAB 01/01/23 Hydrocodone-Acetaminophen (Hydrocodone/Acetaminophen 5-325 mg) 1 Tab Tab, 1 TAB PO PRN, TAB 01/01/23 Apixaban Base (ELIQUIS) 2.5 Mg Tab, 2.5 MG PO BID, TAB 01/01/23 Cod Liver Oil (Cod Liver Oil) Oil, 2200 MG PO TID, EA 01/01/23 Amlodipine Besylate (Amlodipine Besylate) 5 Mg Tab, 5 MG PO DAILY, TAB 01/01/23 Albuterol Sulfate (Albuterol Sulfate) 0.083 % Neb, 1 VIAL NEB Q4HPRN PRN for SHORTNESS OF BREATH, #50 VIAL 01/01/23 Digoxin (Digoxin) 0.25 Mg Tab, 0.25 MG PO DAILY 02/12/12 Mode of Arrival: Ambulatory Past Medical History PAST MEDICAL HISTORY: AFIB, CAD, COPD, High Lipids, HTN, Thyroid Surgical History: Appendectomy, Hysterectomy, Pacemaker, Tonsillectomy [employer] History: Unknown Family History Family History: Reviewed,noncontributory to illness, Unknown Social History Smoker: Non-Smoker Alcohol: Denies ETOH Use Drugs: Denies Drug Use Lives In: Home Constitutional: denies: chills, diaphoresis, fatigue, fever, malaise, sweats, weakness, others EENTM: denies: blurred vision, double vision, ear bleeding, ear discharge, ear drainage, ear pain, ear ringing, eye pain, eye redness, hearing loss, mouth pain, mouth swelling, nasal discharge, nose bleeding, nose congestion, nose pain, photophobia, tearing, throat pain, throat swelling, voice changes, others Respiratory: denies: cough, hemoptysis, orthopnea, SOB at rest, shortness of breath, SOB with excertion, stridor, wheezing, others Cardiovascular: denies: chest pain, dizzy spells, diaphoresis, Dyspnea on exertion, edema, irregular heart beat, left arm pain, lightheadedness, palpitations, PND, syncope, others Gastrointestinal: denies: abdomen distended, abdominal pain, blood streaked bowels, constipated, diarrhea, dysphagia, difficulty swallowing, hematemesis, melena, nausea, poor appetite, poor fluid intake, rectal bleeding, rectal pain, vomiting, others Genitourinary: denies: abnormal vagina bleeding, burning, dyspareunia, dysuria, flank pain, frequency, hematuria, incontinence, pain, , vagina discharge, urgency, others Neurological: denies: dizziness, fainting, headache, left sided numbness, left sided weakness, numbness, paresthesia, pre-existing deficit, right sided numbness, right sided weakness, seizure, speech problems, tingling, tremors, weakness, others Musculoskeletal: reports: others (LEFT UPPER LATERAL RIB PAIN); denies: back pain, gout, joint pain, joint swelling, muscle pain, muscle stiffness, neck pain Integumetry: denies: bruises, change in color, change in hair/nails, dryness, laceration, lesions, lumps, rash, wounds, others Allergic/Immunocompromised: denies: Difficulty Healing, Frequent Infections, Hives, Itching, others Hematologic/Lymphatic: denies: anemia, blood clots, easy bleeding, easy bruising, swollen glands, others Endocrine: denies: excessive hunger, excessive sweating, excessive thirst, excessive urination, flushing, intolerance to cold, intolerance to heat, unexplained weight gain, unexplained weight loss, others Psychiatric: denies: anxiety, bipolar disorder, depression, hopeless, panic disorder, schizophrenia, sleepless, suicidal, others Physical Exam General Appearance: No Apparent Distress, Normal HEENT: Normal ENT Inspection, Pharynx Normal, TMs Normal Neck: Full Range of Motion, Non-Tender Respiratory: Lungs Clear, No Respiratory Distress, Normal Breath Sounds Cardiovascular: No Edema, No JVD, No Murmur, No Gallop, Normal Peripheral Pulses, Regular Rate/Rhythm Breast Exam: Deferred Gastrointestinal: No Organomegaly, Non Tender, No Pulsatile Mass, Normal Bowel Sounds, Soft Genitalia: Deferred Pelvic: Deferred Rectal: Deferred Extremities: Normal capillary refill, Normal inspection, Normal range of motion, Non-tender, No pedal edema Musculoskeletal : Location: Left Extremity Location: Other (LEFT UPPER LATERAL RIB TENDERNESS UNDER LEFT ARMPIT NOTED SUPERFICIAL ABRASION BLEEDING CONTROLLED NO LACERATIONS OR OPEN LESIONS.) Apperance: Normal Neurologic: Alert, No Motor Deficits, Normal Affect, Normal Mood, No Sensory Deficits Cerebellar Function: Normal Reflexes: Normal Skin: Dry, Normal Color, Warm Lymphatic: No Adenopathy Was a procedure done? Was a procedure done?: No Differential Diagnosis Multiple Trauma: Fractures, Pneumothorax, Pulmonary Contusion, Abrasions X-Ray, Labs, Meds, VS Vital Signs Date Time Temp Pulse Resp B/P (MAP) Pulse Ox O2 Delivery O2 Flow Rate FiO2 12/23/24 18:39 97.9 60 16 149/49 (82) 96 97.9 X-Ray, Labs, Meds, VS Comment EXAM: CT CHEST WITHOUT CONTRAST History: S/P FALL LEFT UPPER LAT CHEST INJURY/PAIN Comparison Study: CT CHST AB PEL WO CON-NO IV/ORAL on DOS: 03/09/23 TECHNIQUE: Multidetector CT of the chest was performed. Imaging was performed without IV contrast. Axial, coronal, and sagittal multiplanar reformats were obtained from the axial data set by the technologist. Radiation Dose : CTDI vol 19.06 mGy, DLP 685.37 mGy*cm. Findings: Lungs: Left lower lobe granuloma. The lungs are otherwise clear. Pleura: Unremarkable Heart/Great vessels: No cardiomegaly or pericardial effusion. Mild coronary atherosclerosis. Mediastinum: Unremarkable Soft tissues/Bones: Moderate to severe multilevel degenerative changes of the thoracic spine Cholecystectomy. Left renal cyst. Impression: 1. No acute cardiopulmonary disease or evidence of an acute fracture CT FINDINGS WITHOUT ANY ACUTE FRACTURES NOTED LEFT RENAL CYST AND LEFT LOWER LOBE GRANULOMA INCIDENTAL FINDING PATIENT MADE AWARE TO FOLLOW UP WITH PCP. [id number]-[id number] MOTRIN NEEDED FOR THE PAIN PER LABELED DOSING INSTRUCTIONS. PATIENT ALREADY ON NORCO 5 MG TWICE DAILY FOR CHRONIC PAIN. ADVISED ON REST AND ICE. ADVISED TO FOLLOW UP WITH HER PCP IN 2-3 DAYS ER RETURN PRECAUTIONS GIVEN PATIENT INDICATES UNDERSTANDING AND AGREES WITH DISCHARGE PLAN OF CARE. Time of 1ST Reevaluation: 18:33 Reevaluation 1ST: Unchanged Time of 2ND Reevaluation: 20:52 Reevaluation 2ND: Improved Patient Education/Counseling: Diagnosis, Treatment, Prognosis, Need For Follow Up Family Education/Counseling: Diagnosis, Treatment, Prognosis, Need For Follow Up Departure 1 Departure Time of Disposition: 20:52 Impression: Primary Impression: Contusion of rib on left side Qualified Codes: S29.8XXA - Other specified injuries of thorax, initial encounter Disposition: 01 HOME / SELF CARE / HOMELESS Condition: Stable Discharged With: Relative (Sibling) Critical Care Note Critical Care Time?: No Stability Stability form required: [facility] Dec 23, 2024 20:54
== END 2024-12-23 23:27 | disposition home or self-care (01) ==
LOC: ER 18:13
DX: S20.212A Contusion of left front wall of thorax, initial encounter (principal); S40.812A Abrasion of left upper arm, initial encounter; I10 Essential (primary) hypertension; I48.91 Unspecified atrial fibrillation; J44.9 Chronic obstructive pulmonary disease, unspecified; E03.9 Hypothyroidism, unspecified; Z79.899 Other long term (current) drug therapy; Z90.49 Acquired absence of other specified parts of digestive tract; Z90.710 Acquired absence of both cervix and uterus; Z95.0 Presence of cardiac pacemaker; Z88.1 Allergy status to other antibiotic agents; Z88.2 Allergy status to sulfonamides; Z88.6 Allergy status to analgesic agent; W18.39XA Other fall on same level, initial encounter; Y93.89 Activity, other specified; Y92.89 Other specified places as the place of occurrence of the external cause; Y99.8 Other external cause status
CPT/HCPCS: 71250

== ENCOUNTER 2025-03-28 12:37 | Inpatient (IN) | payer MEDICARE ==
[~2025-03-28] VITALS: Ht 152.4 cm; Wt 75.5 kg
--- NOTE | 2025-03-28 13:27 | ED.PDOC ---
Back pain HPI HPI Comments Left heel pain and redness Chief Complaint: Lower Extremity Comments This Patient denies any injuries to the left heel. She woke up with pain to the right heel. The heel is red and tender. Patient went to urgent care and was sent here for rule out DVT. Time Seen by MD: 13:18 Primary Care Provider: RAIZA Allergies: Coded Allergies: Milk-related Compounds (Verified Allergy, Unknown, 03/11/23) DAIRY Naproxen (Verified Allergy, Unknown, 12/31/22) Sulfa Drugs (Verified Allergy, Unknown, 12/31/22) Tetracycline (Verified Allergy, Unknown, 12/31/22) Uncoded Allergies: ADHESIVE TAPE (Allergy, Unknown, 12/04/23) Home Meds Active Scripts Metoprolol Succinate (Toprol Xl) 25 Mg Tab, 1 TAB PO DAILY, #30 TAB 5 Refills Prov:CONNOR LENNON MD 05/26/24 Amiodarone Hcl (Amiodarone Hcl) 200 Mg Tab, 200 MG PO DAILY for 30 Days, #30 TAB 2 Refills Prov:MAGDA NIX MD 01/01/23 Reported Medications Telmisartan (Telmisartan) 40 Mg Tab, 1 TAB PO DAILY 05/23/24 Meclizine Hcl (Meclizine Hcl) 12.5 Mg Tab, 1 TAB PO TID for 20 Days, #60 12/13/23 Potassium Chloride (Klor-Con 8) 8 Meq Tab, 1 TAB PO DAILY 12/13/23 Gabapentin (Gabapentin) 800 Mg Tab, 1 TAB PO TID 12/13/23 Levothyroxine Sodium (Levothyroxine Sodium) 50 Mcg Tab, 1 TAB PO DAILY 12/13/23 Magnesium Oxide (MAGNESIUM OXIDE) 400 Mg Tab, 500 MG PO DAILY, TAB 12/13/23 Trazodone Hcl (Trazodone Hcl) 50 Mg Tab, 2 TAB PO QHSP PRN for ANXIETY 12/13/23 Montelukast Sodium (MONTELUKAST SODIUM) 10 Mg Tab, 1 TAB PO DAILY 12/13/23 Vitamin B12 (Vitamin B-12) 1,000 Mcg/1 Ml Ij, 2500 MCG PO DAILY@BREAKFAST, INJ 01/01/23 Cholecalciferol (VITAMIN D3) 2,000 Unit Tab, 5000 UNITS PO DAILY, TAB 01/01/23 Zinc Gluconate (ZINC) 100 Mg Tab, 30 MG PO DAILY, TAB 01/01/23 Dauavqyungb-Dxhzahphqgak-Ejwvo (Trelegy Ellipta 100-62.5-25 Mcg/INH) 1 Aer Aer, 1 AER IN, AER 01/01/23 S-Adenosylmethionine (SOURAV E) 400 Mg Tab, 400 MG PO BIDBRS, TAB 01/01/23 Omeprazole (Omeprazole Dr) 40 Mg Cap, 40 MG PO DAILY@DINNER, CAP 01/01/23 Metoprolol Succinate (Metoprolol Succinate Er) 25 Mg Tab, 25 MG PO DAILY@BREAKFAST, TAB 01/01/23 Methylsulfonylmethane (MSM) 900 Mg Cap, 1000 MG PO DAILY, CAP 01/01/23 Furosemide (Lasix) 20 Mg Tb, 20 MG PO DAILY, TAB 01/01/23 Ferrous Sulfate (Iron (Ferrous Sulfate)) 50 Mg Tab, 18 MG PO DAILY, TAB 01/01/23 Hydrocodone-Acetaminophen (Hydrocodone/Acetaminophen 5-325 mg) 1 Tab Tab, 1 TAB PO PRN, TAB 01/01/23 Apixaban Base (ELIQUIS) 2.5 Mg Tab, 2.5 MG PO BID, TAB 01/01/23 Cod Liver Oil (Cod Liver Oil) Oil, 2200 MG PO TID, EA 01/01/23 Amlodipine Besylate (Amlodipine Besylate) 5 Mg Tab, 5 MG PO DAILY, TAB 01/01/23 Albuterol Sulfate (Albuterol Sulfate) 0.083 % Neb, 1 VIAL NEB Q4HPRN PRN for SHORTNESS OF BREATH, #50 VIAL 01/01/23 Digoxin (Digoxin) 0.25 Mg Tab, 0.25 MG PO DAILY 02/12/12 Information Source: Patient, Relative (Child) Mode of Arrival: Wheelchair Timing: Hours Duration: Since onset Radiates to: Anterior: (R) Foot Severity: Moderate Quality: Sharp Onset: Spontaneous Modifying Factors: Other Past Medical History PAST MEDICAL HISTORY: AFIB, CAD, COPD, High Lipids, HTN, Thyroid Surgical History: Appendectomy, Hysterectomy, Pacemaker, Tonsillectomy 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 Family History Family History: Reviewed,noncontributory to illness, Unknown Social History Smoker: Non-Smoker Alcohol: Denies ETOH Use Drugs: Denies Drug Use Lives In: Home Constitutional: denies: chills, diaphoresis, fatigue, fever, malaise, sweats, weakness, others EENTM: denies: blurred vision, double vision, ear bleeding, ear discharge, ear drainage, ear pain, ear ringing, eye pain, eye redness, hearing loss, mouth pain, mouth swelling, nasal discharge, nose bleeding, nose congestion, nose pa in, photophobia, tearing, throat pain, throat swelling, voice changes, others Respiratory: denies: cough, hemoptysis, orthopnea, SOB at rest, shortness of breath, SOB with excertion, stridor, wheezing, others Cardiovascular: denies: chest pain, dizzy spells, diaphoresis, Dyspnea on exertion, edema, irregular heart beat, left arm pain, lightheadedness, palpitations, PND, syncope, others Gastrointestinal: denies: abdomen distended, abdominal pain, blood streaked bowels, constipated, diarrhea, dysphagia, difficulty swallowing, hematemesis, melena, nausea, poor appetite, poor fluid intake, rectal bleeding, rectal pain, vomiting, others Genitourinary: denies: abnormal vagina bleeding, burning, dyspareunia, dysuria, flank pain, frequency, hematuria, incontinence, pain, , vagina discharge, urgency, others Neurological: denies: dizziness, fainting, headache, left sided numbness, left sided weakness, numbness, paresthesia, pre-existing deficit, right sided numbness, right sided weakness, seizure, speech problems, tingling, tremors, weakness, others Musculoskeletal: reports: others (Right heel with redness, bruising and tenderness no calf tenderness or asymmetry. No pedal edema); denies: back pain, gout, joint pain, joint swelling, muscle pain, muscle stiffness, neck pain Integumetry: reports: rash (Right heel with redness and mild bruising. And tenderness); denies: bruises, change in color, change in hair/nails, dryness, laceration, lesions, lumps, wounds, others Allergic/Immunocompromised: denies: Difficulty Healing, Frequent Infections, Hives, Itching, others Hematologic/Lymphatic: denies: anemia, blood clots, easy bleeding, easy bruising, swollen glands, others Endocrine: denies: excessive hunger, excessive sweating, excessive thirst, excessive urination, flushing, intolerance to cold, intolerance to heat, unexplained weight gain, unexplained weight loss, others Psychiatric: denies: anxiety, bipolar disorder, depression, hopeless, panic disorder, schizophrenia, sleepless, suicidal, others All Other Systems: Reviewed and Negative Physical Exam General Appearance: No Apparent Distress, Normal HEENT: Normal ENT Inspection, Pharynx Normal, TMs Normal Neck: Full Range of Motion, Non-Tender, Normal, Normal Inspection Respiratory: Chest Non-Tender, Lungs Clear, No Accessory Muscle Use, No Respiratory Distress, Normal Breath Sounds Cardiovascular: No Edema, No JVD, No Murmur, No Gallop, Normal Peripheral Pulses, Regular Rate/Rhythm Breast Exam: Deferred Gastrointestinal: No Organomegaly, Non Tender, No Pulsatile Mass, Normal Bowel Sounds, Soft Genitalia: Deferred Pelvic: Deferred Rectal: Deferred Extremities: No calf tenderness, Normal capillary refill, Normal inspection, Normal range of motion, Non-tender, No pedal edema, Tender (Left heel has point tenderness and there is redness and bruising under the heel) Musculoskeletal : Apperance: Normal Neurologic: Alert, cad manager II-XII nml as Tested, No Motor Deficits, Normal Affect, Normal Mood, No Sensory Deficits Cerebellar Function: Normal Reflexes: Normal Skin: Dry, Normal Color, Warm Lymphatic: No Adenopathy Was a procedure done? Was a procedure done?: No Back Pain Differential Dx Differential Diagnosis: Fracture, Musculoskeletal Pain, Strain, Other (cellulitis was the) X-Ray, Labs, Meds, VS Vital Signs Date Time Temp Pulse Resp B/P (MAP) Pulse Ox O2 Delivery O2 Flow Rate FiO2 03/28/25 12:39 99.3 60 19 155/77 96 99.3 Time of 1ST Reevaluation: 14:26 Reevaluation 1ST: Unchanged Patient Education/Counseling: Diagnosis, Treatment, Prognosis, Need For Follow Up Family Education/Counseling: Diagnosis, Treatment, Prognosis, Need For Follow Up Comments This is a patient who has the admitted mobilities. According to the daughter patient just had surgery for skin cancer on the right leg. She is waiting for physical therapy to begin. She lives with her daughter but is completely dependent on her daughter. Her daughter herself reportedly has physical conditions that she is of limited help to the patient. Patient has some held have possibly cause a fracture to the calcaneus on the left side this time. This has caused the tenderness and bruising which brought her in. Now she is unable to bear weight on both legs. She will need to have physical therapy and case management to look for proper resources and safe discharge environment. The daughters were cut sting the patient admitted to be taken care of and have resources set up before going home. Patient is also asking to has a Melo catheter placed because she has urinary incontinence. Now she is unable to transfer or find a way to urinate since she can not bear weight on both legs SEPSIS Sepsis Screen Date sepsis recognized/suspect: Mar 28, 2025 Time Sepsis recognized/suspect: 1239 Recent Procedure: No On Antibiotic Therapy: No Respiratory Rate >20: No Heart Rate >90: No Temp<36 C (96.8 F) or >38.3 C: No SBP <90 or MAP <65 mmHG: No New Acute Mental Status Change: No Is the patient on CPAP, BIPAP,: No Physician Orders R Foot 3 View Xray (03/28/25 13:23) Vital Signs Date Time Temp Pulse Resp B/P (MAP) Pulse Ox O2 Delivery O2 Flow Rate FiO2 03/28/25 12:39 99.3 60 19 155/77 96 99.3 Departure 1 Departure Time of Disposition: 14:28 Impression: Primary Impression: Heel pain Additional Impressions: Left calcaneal fracture Muscular deconditioning Disposition: ADMITTED INPATIENT Admit to: Med Surg Condition: Stable Discharged With: Self, Relative Critical Care Note Critical Care Time?: No Stability Stability form required: No JORDON MIRANDA MD Mar 28, 2025 13:27
--- NOTE | 2025-03-28 14:07 | DVH ---
XY R FOOT 3 VIEW XRAY, INDICATION: pain TECHNICAL DATA: Frontal, and lateral views were obtained of the right foot. COMPARISON: XY R FOOT 3 VIEW XRAY on DOS: 12/12/23, XY R ANKLE 3 VIEW on DOS: 12/04/23 FINDINGS: Possible nondisplaced fracture at the anterior superior aspect of the calcaneus. Joint spaces are mellissa ntained. Alignment is anatomic. The hallux sesamoids appear normal. Soft tissues are within normal li mits. IMPRESSION: Possible nondisplaced fracture at the anterior superior aspect of the calcaneus.
[2025-03-28 18:01] VITALS: PULSE 60; RESP 20; O2SAT 99
[2025-03-28] MEDS ORDERED: ONDANSETRON HCL 4 MG/2 ML VIAL IV PRN (20:45)
[2025-03-28] MEDS ORDERED: ACETAMINOPHEN 325 MG TAB PO PRN (20:45)
[2025-03-28] MEDS ORDERED: MORPHINE SULFATE INJ 2 MG/ml SYRG IV PRN (20:45)
[2025-03-28] MEDS ORDERED: HYDROmorphone HCL 2 MG/ML VL/or syr IV PRN (21:00)
[2025-03-28] MEDS ORDERED: COD LIVER OIL PO SCH (22:00)
[2025-03-28] MEDS ORDERED: MECLIZINE HCL PO SCH (22:00)
[2025-03-28 23:37] LABS: Hematocrit 37.1 % (36.0-46.0); Hemoglobin 12.5 g/dL (12.2-16.2); Mean Corpuscular Hemoglobin 31.7 pg (28.0-32.0); Mean Corpuscular Volume 94.3 fL (80.0-100.0); Nucleated Red Blood Cells % 0.0 %
[2025-03-28 23:54] LABS: INR 1.08 (0.9-1.15); Partial Thromboplastin Time 28.9 SEC (24.5-34.5); Prothrombin Time 11.4 sec (9.3-11.8)
[2025-03-28 23:58] LABS: Alanine Aminotransferase 38 U/L (7-40); Albumin 4.1 g/dL (3.2-4.8); Alkaline Phosphatase 82 U/L (46-116); Anion Gap 10 (5-15); BUN/Creatinine Ratio 16.7 (10.0-20.0); Blood Urea Nitrogen 18 mg/dL (9-23); Calcium 9.3 mg/dL (8.7-10.4); Carbon Dioxide 28 mmol/L (20-31); Chloride 102 mmol/L (98-107); Potassium 3.6 mmol/L (3.5-5.1); Sodium 140 mmol/L (136-145); Total Protein 7.1 g/dL (5.7-8.2)
[2025-03-29] VITALS (12 sets, daily range): BP systolic 140–156; BP diastolic 53–88; PULSE 59–61; RESP 16–20; TEMP 97.3–98.3; O2SAT 60–98
[2025-03-29] MEDS: ENOXAPARIN SOD 100 MG/1 ML SYRINGE SC ONE (00:04)
[2025-03-29 00:05] LABS: Bilirubin, Total 0.2 mg/dL (0.2-1.0); Glucose 114 mg/dL (74-106)
[2025-03-29] MEDS ORDERED: ALBUTEROL MEDNEB 2.5 mg/3ml NEB NEB PRN (00:15)
[2025-03-29] MEDS ORDERED: LEVO25TA6 PO (00:16)
[2025-03-29] MEDS ORDERED: FURO40TA4 PO (00:17)
[2025-03-29] MEDS ORDERED: SIMV20TA20 PO (00:20)
[2025-03-29] MEDS ORDERED: FLUT1AER3 IN (00:22)
[2025-03-29] MEDS ORDERED: CHOL20007 PO (00:25)
[2025-03-29] MEDS ORDERED: UBIQ100C3 PO (00:26)
[2025-03-29] MEDS ORDERED: ALBU1AER4 IN (00:28)
[2025-03-29] MEDS ORDERED: [UNRECOGNIZED DRUG - CODE] PO (00:29)
[2025-03-29] MEDS ORDERED: [UNRECOGNIZED DRUG - CODE] PO (00:31)
[2025-03-29] MEDS ORDERED: OMEG-20 PO (00:32)
[2025-03-29] MEDS: HYDROcodone-ACET 5/325MG TAB PO PRN ×2 (01:53→15:26)
--- NOTE | 2025-03-29 02:13 | DVHHPRES ---
History of Present Illness Resident Creating Document: GALINA NOLAN RESIDENT History of Present Illness This is a 89-year-old female with a past medical history of COPD on 2 L of oxygen at night, hypertension, atrial fibrillation, hypothyroidism, CHF-HFpEF 60%, status post pacemaker, hyperlipidemia, COPD on 2 L of oxygen at night, history of bowel and bladder incontinence, chronic back pain, spinal stenosis status post spacer placement, pelvic bolts came in with a chief complaint of pain in the right foot. As per patient she felt okay in the morning and walked to her desk but when she stood up and took a step with the right foot, she felt a sharp sudden pain on her heel that made it difficult for her to ambulate, which prompted her daughter to bring her to the emergency room. She reports that she has a high fall risk and describes the pain as 10/10 in intensity, localized to the calcaneal region, nonradiating and constant in nature. Vitals n admission temperature 98.3, pulse 59, respiratory rate 20, blood pressure 150/61 mmHg, pulse oximetry 98 in room air. x-ray of the right foot shows possible nondisplaced fracture at anterior superior aspect of the calcaneus. Since patient has urinary incontinence of Melo's catheter has been placed. We are admitting the patient for further monitoring and workup. As per the patient she does not have type 2 diabetes. She took metformin a decade ago for 2 years and was told by her PCP to stop taking them. serum blood glucose is 114 and A1c has been ordered. Past medical history: Hypertension, AFib, CHF with preserved ejection fraction 60% (last echo done on 05/24/2024), mild obstructive coronary artery disease (diagnosed 05/26/2024), hypothyroidism Past surgical history: Appendectomy, tonsillectomy, hysterectomy, bilateral cataract surgery, cholecystectomy, status post pacemaker, abott device for neuropathic pain, pelvic bolts on right hip, spinal surgery with spacers Family history: Mother had heart disease, father at 71 and used to be a heavy smoker Social history: Patient denies ever smoking but was exposed to heavy secondhand smoking up to the age of 14 from her father who used to smoke a lot, patient denies drinking alcohol or taking illicit drugs Allergies: Milk, sulfa drugs, tetracycline, naproxen, dpt vaccine Code status: DNR/DNI Review of Systems Constitutional: No: Fever, Chills, Sweats, Weakness, Malaise, Other Eyes: No: Pain, Vision change, Conjunctivae inflammation, Eyelid inflammation, Other, Redness ENT: No: Ear pain, Ear discharge, Nose pain, Nose discharge, Nose congestion, Mouth pain, Mouth swelling, Throat pain, Throat swelling, Other Respiratory: No: Cough, Dry, Shortness of breath, SOB with excertion, Wheezing, Hemoptysis, Pleuritic Pain, Sputum, Wheezing, Other Cardiovascular: No: Chest Pain, Palpitations, Orthopnea, Paroxysmal Noc. Dyspnea, Edema, Lt Headedness, Other Gastrointestinal: No: Nausea, Vomiting, Abdominal Pain, Diarrhea, Constipation, Melena, Hematochezia, Other Genitourinary: No Dysuria, No Frequency, No Incontinence, No Hematuria, No Retention, No Other Musculoskeletal: No: other, neck pain, shoulder pain, arm pain, back pain, hand pain, leg pain, foot pain Skin: No: Rash, Lesions, Jaundice, Bruising, Other Neurological: Confusion; No: Weakness, Numbness, Incoordination, Change in speech, Seizures, Other Allergies: Coded Allergies: Milk-related Compounds (Verified Allergy, Unknown, 03/11/23) DAIRY Naproxen (Verified Allergy, Unknown, 12/31/22) Sulfa Drugs (Verified Allergy, Unknown, 12/31/22) Tetracycline (Verified Allergy, Unknown, 12/31/22) Uncoded Allergies: ADHESIVE TAPE (Allergy, Unknown, 12/04/23) Medications Current Medications Medications Dose Ordered Sig/Jasmyne Route Start Time Stop Time Status Last Admin Dose Admin Ondansetron HCl 4 mg Q4HP PRN IV 03/28/25 20:45 Acetaminophen 650 mg Q6HP PRN PO 03/28/25 20:45 Amiodarone HCl 200 mg DAILY PO 03/29/25 10:00 Acetaminophen/ Hydrocodone Bitart 1 tab PRN PRN PO 03/28/25 20:45 03/29/25 01:53 1 TAB Levothyroxine Sodium 50 mcg DAILY PO 03/29/25 10:00 Montelukast Sodium 10 mg DAILY PO 03/29/25 10:00 Trazodone HCl 100 mg QHSP PRN PO 03/28/25 20:45 03/29/25 00:03 100 MG Albuterol 2.5 mg Q4HPRN PRN NEB 03/29/25 00:15 Cholecalciferol 5,000 unit DAILY PO 03/29/25 10:00 Digoxin 0.25 mg DAILY PO 03/29/25 10:00 Gabapentin 300 mg BID PO 03/29/25 10:00 Magnesium Oxide 400 mg DAILY PO 03/29/25 10:00 Metoprolol Succinate 25 mg DAILY@BREAKFAST PO 03/29/25 08:00 Losartan Potassium 50 mg DAILY PO 03/29/25 10:00 Enoxaparin Sodium 60 mg DAILY SC 03/29/25 10:00 Hydromorphone HCl 0.25 mg Q4HPRN PRN IV 03/28/25 21:00 Exam Vital Signs Vital Signs Date Time Temp Pulse Resp B/P (MAP) Pulse Ox O2 Delivery O2 Flow Rate FiO2 03/29/25 01:01 97.7 61 20 149/53 (85) 95 97.7 03/28/25 23:29 Nasal Cannula* 2 28 Exam General Appearance: Alert, Oriented X3, Cooperative, Not in acute distress HEENT: Atraumatic, Mucous membranes moist/pink Respiratory: Clear to auscultation, Normal air movement, No added sounds Cardiovascular: Regular rate, Normal S1, Normal S2, No murmurs Abdominal: Active bowel sounds, Soft, no distention, no tenderness Extremities: No edema, Normal pulses, Tenderness on right calcaneal region, slightly erythematous, presence of bursal sac in bilateral ankles which is fluctuant Skin: No Significant rash, except past surgical scars, stasis dermatitis in bilateral legs Neuro: Normal speech, sensorimotor deficits none Psych/Mental Status: Mental status NL, Mood NL Labs/Xrays Labs Test 03/28/25 23:09 Range/Units White Blood Count 8.2 4.4-10.8 10^3/uL Red Blood Count 3.93 L 4.0-5.20 10^6/uL Hemoglobin 12.5 12.2-16.2 g/dL Hematocrit 37.1 36.0-46.0 % Mean Corpuscular Volume 94.3 80.0-100.0 fL Mean Corpuscular Hemoglobin 31.7 28.0-32.0 pg Mean Corpuscular Hemoglobin Concent 33.6 32.0-36.0 g/dL Red Cell Distribution Width 13.3 11.8-14.3 % Platelet Count 222 140-450 10^3/uL Mean Platelet Volume 8.1 6.9-10.8 fL Neutrophils (%) (Auto) 64.5 37.0-80.0 % Lymphocytes (%) (Auto) 26.5 10.0-50.0 % Monocytes (%) (Auto) 6.8 0.0-12.0 % Eosinophils (%) (Auto) 1.1 0.0-7.0 % Basophils (%) (Auto) 1.1 0.0-2.0 % Neutrophils # (Auto) 5.3 1.6-8.6 10 ^3/uL Lymphocytes # (Auto) 2.2 0.4-5.4 10 ^3/uL Monocytes # (Auto) 0.6 0-1.3 10 ^3/uL Eosinophils # (Auto) 0.1 0-0.8 10 ^3/uL Basophils # (Auto) 0.1 0-0.2 10 ^3/uL Nucleated Red Blood Cells 0.0 % Prothrombin Time 11.4 9.3-11.8 sec Prothrombin Time INR 1.08 0.9-1.15 Activated Partial Thromboplast Time 28.9 24.5-34.5 SEC Sodium Level 140 136-145 mmol/L Potassium Level 3.6 3.5-5.1 mmol/L Chloride Level 102 98-107 mmol/L Carbon Dioxide Level 28 20-31 mmol/L Anion Gap 10 5-15 Blood Urea Nitrogen 18 9-23 mg/dL Creatinine 1.08 H 0.550-1.02 mg/dL Glomerular Filtration Rate Calc 49 >90 mL/min BUN/Creatinine Ratio 16.7 10.0-20.0 Serum Glucose 114 H 74-106 mg/dL Calcium Level 9.3 8.7-10.4 mg/dL Total Bilirubin 0.2 0.2-1.0 mg/dL Aspartate Amino Transferase (AST) 36 13-40 U/L Alanine Aminotransferase (ALT) 38 7-40 U/L Alkaline Phosphatase 82 46-116 U/L B-Type Natriuretic Peptide 120.28 0-100 pg/mL Total Protein 7.1 5.7-8.2 g/dL Albumin 4.1 3.2-4.8 g/dL SEPSIS Sepsis Screen Date sepsis recognized/suspect: Mar 28, 2025 Time Sepsis recognized/suspect: 1801 Recent Procedure: No On Antibiotic Therapy: No Respiratory Rate >20: No Heart Rate >90: No Temp<36 C (96.8 F) or >38.3 C: No SBP <90 or MAP <65 mmHG: No New Acute Mental Status Change: No Is the patient on CPAP, BIPAP,: No Physician Orders Admit (03/28/25 20:38) Code Status (03/28/25 20:38) Ondansetron Hcl (Zofran) (03/28/25 20:45) Fall Risk Precautions In Place QSHIFT (03/28/25 20:38) Complete Blood Count (03/29/25 04:00) Comprehensive Metabolic Panel (03/29/25 04:00) Cardiac Diet-2gna,Lofat,Lochol (03/29/25 Breakfast) Pt Request For Service (03/28/25 20:38) Condition: Unstable (03/28/25 20:38) Acetaminophen Tablet (Tylenol Tablet) (03/28/25 20:45) Maintain Bed Rest (03/28/25 20:38) Stat Ekg For Chest Pain (03/28/25 20:38) Oxygen By Nasal Cannula (03/28/25 20:38) Amiodarone Tablet (Cordarone Tablet) (03/29/25 10:00) Hydrocodone-Acet 5/325mg Tab ([place] 5/32 (03/28/25 20:45) Levothyroxine Tablet (Synthroid Tablet) (03/29/25 10:00) Montelukast Tablet (Singulair Tablet) (03/29/25 10:00) Trazodone Hcl (Desyrel) (03/28/25 20:45) Cholecalciferol Tablet (Vitamin D3 Table (03/29/25 10:00) Digoxin Tablet (Lanoxin Tablet) (03/29/25 10:00) Magnesium Oxide Tablet (Mag-Ox Tablet) (03/29/25 10:00) Metoprolol Xl Succinate (Toprol Xl) (03/29/25 08:00) Losartan Tablet (Cozaar Tablet) (03/29/25 10:00) Hydromorphone Injection (Dilaudid Inject (03/28/25 21:00) Podiatry Consult (03/28/25 20:47) Enoxaparin Sodium (Lovenox) (03/29/25 10:00) Albuterol Medneb (Ventolin Medneb) (03/29/25 00:15) Gabapentin Capsule (Neurontin Capsule) (03/29/25 10:00) Hemoglobin A1c (03/29/25 01:35) Vital Signs Date Time Temp Pulse Resp B/P (MAP) Pulse Ox O2 Delivery O2 Flow Rate FiO2 03/29/25 01:01 97.7 61 20 149/53 (85) 95 97.7 03/29/25 00:23 98.3 59 20 150/61 (90) 98 98.3 03/28/25 23:29 Nasal Cannula* 2 28 03/28/25 22:54 60 18 137/55 (82) 98 03/28/25 22:54 60 18 137/55 (82) 98 Laboratory Tests Test 03/28/25 23:09 White Blood Count 8.2 10^3/uL (4.4-10.8) Medications Medications Dose Ordered Sig/Jasmyne Route Start Time Stop Time Status Last Admin Dose Admin Acetaminophen/ Hydrocodone Bitart 1 tab PRN PRN PO 03/28/25 20:45 03/29/25 01:53 1 TAB Enoxaparin Sodium 60 mg ONCE ONCE SC 03/28/25 23:00 03/28/25 23:01 DC 03/29/25 00:04 60 MG Trazodone HCl 100 mg QHSP PRN PO 03/28/25 20:45 03/29/25 00:03 100 MG Assessment/Plan Assessment/Plan #Acute Nondisplaced fracture of the calcaneus -Foot x-ray shows: Possible nondisplaced fracture at the anterior superior aspect of the calcaneus. -ondansetron 4 mg IV q.4 PRN -Acetaminophen 650 mg p.o. q.6 PRN -[place] 5/325 mg 1 tab PRN -Morphine sulfate 2 mg IV q.4 PRN -podiatry consult #DARON due to VMN -cr 1.08 -continue to monitor #CHF, HFpEF 60%, not under exacerbation #Atrial fibrillation #hypertension #hx of mild obstructive coronary artery disease -Last echo done on 05/24/2024 -continue home medication furosemide 20 mg p.o. daily scheduled -metoprolol 25 mg p.o. daily -Amlodipine 5 mg p.o. daily -Losartan 50 mg per orally daily -amiodarone 200 mg p.o. daily -Lovenox 1 mg/kg- 60 mg subcutaneous b.i.d. -ekg # history of COPD, not under exacerbation - albuterol med nebs 2.5 mg q.4 PRN - montelukast 10 mg p.o. daily #hypothyroidism -Continuing home medication levothyroxine 50 mcg p.o. daily scheduled #?DM type 2 -s glucose 114 -A1c ordered #insomnia and anxiety -continue trazadone 100mg prn # history of vitamin-D deficiency Continue cholecalciferol 5000 units daily per oral DVT prophylaxis: Lovenox 1 mg/kg-60 mg subcutaneous b.i.d. Diet: Cardiac diet Goals of care discussed with the patient for more than 27 minutes: DNR/DNI Case discussed with Dr. Walker, patient Plan discussed with: Patient My Orders Orders - GALINA NOLAN RESIDENT Procedure Category Date Status Time Admit ADMIT 03/28/25 Transmitted 20:38 Code Status CODE 03/28/25 Transmitted 20:38 Ondansetron Hcl PHA 03/28/25 In Process (Zofran) 20:45 Fall Risk Precautions SARAH 03/28/[address] 20:38 Complete Blood Count LAB 03/29/25 Logged 04:00 Comprehensive LAB 03/29/25 Logged Metabolic Panel 04:00 Cardiac DIET 03/29/25 Transmitted Diet-2gna,Lofat,Lochol Breakfast Pt Request For Service PT 03/28/25 Logged 20:38 Condition: Unstable SARAH 03/28/25 In Process 20:38 Acetaminophen Tablet PHA 03/28/25 In Process (Tylenol Tablet) 20:45 Maintain Bed Rest SARAH 03/28/25 In Process 20:38 Stat Ekg For Chest SARAH 03/28/25 In Process Pain 20:38 Oxygen By Nasal RT 03/28/25 Transmitted Cannula 20:38 Amiodarone Tablet PHA 03/29/25 In Process (Cordarone Tablet) 10:00 Hydrocodone-Acet PHA 03/28/25 In Process 5/325mg Tab ([place] 20:45 Levothyroxine Tablet PHA 03/29/25 In Process (Synthroid Tablet) 10:00 Montelukast Tablet PHA 03/29/25 In Process (Singulair Tablet) 10:00 Trazodone Hcl PHA 03/28/25 In Process (Desyrel) 20:45 Cholecalciferol PHA 03/29/25 In Process Tablet (Vitamin D3 10:00 Digoxin Tablet PHA 03/29/25 In Process (Lanoxin Tablet) 10:00 Magnesium Oxide PHA 03/29/25 In Process Tablet (Mag-Ox Tablet) 10:00 Metoprolol Xl PHA 03/29/25 In Process Succinate (Toprol Xl) 08:00 Losartan Tablet PHA 03/29/25 In Process (Cozaar Tablet) 10:00 Hydromorphone PHA 03/28/25 In Process Injection (Dilaudid 21:00 Podiatry Consult CONS 03/28/25 Transmitted 20:47 Enoxaparin Sodium PHA 03/29/25 In Process (Lovenox) 10:00 Albuterol Medneb PHA 03/29/25 In Process (Ventolin Medneb) 00:15 Gabapentin Capsule PHA 03/29/25 In Process (Neurontin Capsule) 10:00 Hemoglobin A1c LAB 03/29/25 Logged 01:35 Date of Service: Mar 29, 2025 Billing Provider: CORTNEY WALKER MD,[facility] RESIDENT Mar 29, 2025 02:13
[2025-03-29] MEDS ORDERED: S ADENOSYLMETHIONINE 400 MG PO SCH (08:00)
[2025-03-29] MEDS: METOPROLOL SUCCINATE XL 50 MG TAB PO SCH (09:42)
[2025-03-29] MEDS: AMIODARONE HCL 200 MG TAB PO SCH (09:42)
[2025-03-29] MEDS: LEVOTHYROXINE SODIUM 50 MCG TAB PO SCH (09:43)
[2025-03-29] MEDS: MAGNESIUM OXIDE 400 MG TAB PO SCH (09:43)
[2025-03-29] MEDS: DIGOXIN 0.125 MG TAB PO SCH (09:43)
[2025-03-29] MEDS: GABAPENTIN 300 MG CAP PO SCH (09:43)
[2025-03-29] MEDS: LOSARTAN POTASSIUM 50 MG TAB PO SCH (09:43)
[2025-03-29] MEDS: CHOLECALCIFEROL (VITD3) 1,000UNIT=25mCg TAB PO SCH (09:48)
[2025-03-29] MEDS: MONTELUKAST SODIUM 10 MG TAB PO SCH (09:52)
[2025-03-29] MEDS: ENOXAPARIN SOD 100 MG/1 ML SYRINGE SC SCH (09:53)
[2025-03-29] MEDS ORDERED: ZINC GLUCONATE 30 MG PO SCH (10:00)
[2025-03-29] MEDS ORDERED: FERROUS SULFATE PO SCH (10:00)
[2025-03-29] MEDS ORDERED: METHYLSULFONYLMETHANE 1000 MG PO SCH (10:00)
[2025-03-29] MEDS ORDERED: FUROSEMIDE 20 MG TAB PO SCH (10:00)
[2025-03-29 10:52] LABS: Hematocrit 35.8 % (36.0-46.0); Hemoglobin 12.1 g/dL (12.2-16.2); Mean Corpuscular Hemoglobin 32.2 pg (28.0-32.0); Mean Corpuscular Volume 94.7 fL (80.0-100.0); Nucleated Red Blood Cells % 0.0 %
[2025-03-29 11:20] LABS: Alanine Aminotransferase 32 U/L (7-40); Albumin 3.8 g/dL (3.2-4.8); Alkaline Phosphatase 80 U/L (46-116); Anion Gap 9 (5-15); BUN/Creatinine Ratio 15.4 (10.0-20.0); Blood Urea Nitrogen 14 mg/dL (9-23); Calcium 8.8 mg/dL (8.7-10.4); Carbon Dioxide 29 mmol/L (20-31); Glucose 100 mg/dL (74-106); Total Protein 6.5 g/dL (5.7-8.2)
[2025-03-29 11:21] LABS: Bilirubin, Total 0.3 mg/dL (0.2-1.0)
[2025-03-29 11:25] LABS: Potassium 3.8 mmol/L (3.5-5.1); Sodium 142 mmol/L (136-145)
[2025-03-29 11:26] LABS: Chloride 104 mmol/L (98-107)
--- NOTE | 2025-03-29 13:29 | DVH ---
INDICATION: sob TECHNIQUE: Frontal view of the chest. COMPARISON: CT CHEST WITHOUT CONTRAST on DOS: 12/23/24, XY CHEST XRAY 1 VIEW on DOS: 05/24/24, XY CHES T PORTABLE on DOS: 05/23/24, XY R RIB XRAY on DOS: 12/04/23, XY CHEST XRAY 1 VIEW on DOS: 12/31/22 FINDINGS: Left-sided pacemaker. Cardiomegaly. There is no evidence of pleural disease. The lungs are clear. The bony structures of the chest are intact without fracture. IMPRESSION: Cardiomegaly with CHF.
--- NOTE | 2025-03-29 15:34 | DVHPNRES ---
Progress Note Date Seen: Mar 29, 2025 Resident Creating Document: BAM CORTES RESIDENT Has the PT tested + for MRSA If YES, has PT been informed?: No Medical Necessity Reason Pt with a Central, PICC or Fol: No Subjective Review of Systems Candie Hernandez is a 89-year-old female with a past medical history of COPD on 2 L of oxygen at night, hypertension, atrial fibrillation, hypothyroidism, CHF-HFpEF 60%, status post pacemaker, hyperlipidemia, COPD on 2 L of oxygen at night, history of bowel and bladder incontinence, chronic back pain, spinal stenosis status post spacer placement, pelvic bolts came in with a chief complaint of pain in the right foot. As per patient she felt okay in the morning and walked to her desk but when she stood up and took a step with the right foot, she felt a sharp sudden pain on her heel that made it difficult for her to ambulate, which prompted her daughter to bring her to the emergency room. She reports that she has a high fall risk and describes the pain as 10/10 in intensity, localized to the calcaneal region, nonradiating and constant in nature. Vitals n admission temperature 98.3, pulse 59, respiratory rate 20, blood pressure 150/61 mmHg, pulse oximetry 98 in room air. x-ray of the right foot shows possible nondisplaced fracture at anterior superior aspect of the calcaneus. Since patient has urinary incontinence of Melo's catheter has been placed. We are admitting the patient for further monitoring and workup. As per the patient she does not have type 2 diabetes. She took metformin a decade ago for 2 years and was told by her PCP to stop taking them. serum blood glucose is 114 and A1c has been ordered. As per the patient, her PCP called to inform recent reports showed complicated cystitis. Consult for placement of midline was done and patient was started on Invanz 1 g daily. Possible placement at [facility] post discharge was discussed with the patient and her daughter. Gabapentin dose was increased to 800mg tid. Past medical history: Hypertension, AFib, CHF with preserved ejection fraction 60% (last echo done on 05/24/2024), mild obstructive coronary artery disease (diagnosed 05/26/2024), hypothyroidism Past surgical history: Appendectomy, tonsillectomy, hysterectomy, bilateral cataract surgery, cholecystectomy, status post pacemaker, abott device for neuropathic pain, pelvic bolts on right hip, spinal surgery with spacers Family history: Mother had heart disease, father at 71 and used to be a heavy smoker Social history: Patient denies ever smoking but was exposed to heavy secondhand smoking up to the age of 14 from her father who used to smoke a lot, patient denies drinking alcohol or taking illicit drugs Allergies: Milk, sulfa drugs, tetracycline, naproxen, dpt vaccine Code status: DNR/DNI Patient mentions she still has pain in her right heel. Constitutional: No: Fever, Chills, Sweats, Weakness, Malaise Eyes: No: Pain, Vision change, Conjunctivae inflammation, Eyelid inflammation, Redness ENT: No: Ear pain, Ear discharge, Nose pain, Nose discharge, Nose congestion, Mouth pain, Mouth swelling, Throat pain, Throat swelling Respiratory: No: Cough, Dry, Shortness of breath, SOB with excertion, Wheezing, Hemoptysis, Pleuritic Pain, Sputum, Wheezing Cardiovascular: No: Chest Pain, Palpitations, Orthopnea, Paroxysmal Noc. Dyspnea, Edema, Lt Headedness Gastrointestinal: No: Nausea, Vomiting, Abdominal Pain, Diarrhea, Constipation, Melena, Hematochezia Genitourinary: No Dysuria, No Frequency, No Incontinence, No Hematuria, No Retention Musculoskeletal: pain in right heel, neck pain, shoulder pain, arm pain, back pain, hand pain Skin: No: Rash, Lesions, Jaundice, Bruising, Other Neurological: Confusion; No: Weakness, Numbness, Incoordination, Change in speech, Seizures Allergies: Coded Allergies: Milk-related Compounds (Verified Allergy, Unknown, 03/11/23) DAIRY Naproxen (Verified Allergy, Unknown, 12/31/22) Sulfa Drugs (Verified Allergy, Unknown, 12/31/22) Tetracycline (Verified Allergy, Unknown, 12/31/22) Uncoded Allergies: ADHESIVE TAPE (Allergy, Unknown, 12/04/23) Objective vital signs Vital Sign Date Time Temp Pulse Resp B/P (MAP) Pulse Ox O2 Delivery O2 Flow Rate FiO2 03/29/25 13:00 97.7 60 16 140/54 (82) 95 97.7 03/29/25 10:20 Room Air 03/29/25 10:20 0 21 medications Current Medications Medications Dose Ordered Sig/Jasmyne Route Start Time Stop Time Status Last Admin Dose Admin Ondansetron HCl 4 mg Q4HP PRN IV 03/28/25 20:45 Acetaminophen 650 mg Q6HP PRN PO 03/28/25 20:45 Amiodarone HCl 200 mg DAILY PO 03/29/25 10:00 03/29/25 09:42 200 MG Levothyroxine Sodium 50 mcg DAILY PO 03/29/25 10:00 03/29/25 09:43 50 MCG Montelukast Sodium 10 mg DAILY PO 03/29/25 10:00 03/29/25 09:52 10 MG Trazodone HCl 100 mg QHSP PRN PO 03/28/25 20:45 03/29/25 00:03 100 MG Albuterol 2.5 mg Q4HPRN PRN NEB 03/29/25 00:15 Cholecalciferol 5,000 unit DAILY PO 03/29/25 10:00 03/29/25 09:48 5,000 UNIT Digoxin 0.25 mg DAILY PO 03/29/25 10:00 03/29/25 09:43 0.25 MG Magnesium Oxide 400 mg DAILY PO 03/29/25 10:00 03/29/25 09:43 400 MG Metoprolol Succinate 25 mg DAILY@BREAKFAST PO 03/29/25 08:00 03/29/25 09:42 25 MG Losartan Potassium 50 mg DAILY PO 03/29/25 10:00 03/29/25 09:43 50 MG Hydromorphone HCl 0.25 mg Q4HPRN PRN IV 03/28/25 21:00 Enoxaparin Sodium 60 mg BID SC 03/29/25 22:00 Acetaminophen/ Hydrocodone Bitart 1 tab Q4HP PRN PO 03/29/25 15:15 03/29/25 15:26 1 TAB Ertapenem 1 gm/ Sodium Chloride 50 ml @ 100 mls/hr DAILY IV 03/30/25 10:00 Gabapentin 800 mg TID PO 03/29/25 15:33 Levalbuterol HCl 0.625 mg Q6HR NEB 03/29/25 18:00 UNV Ipratropium [place] 0.5 mg Q6HR NEB 03/29/25 18:00 UNV Examination General Appearance: Alert, Oriented X3, Cooperative, Not in acute distress HEENT: Atraumatic, Mucous membranes moist/pink Respiratory: Clear to auscultation, Normal air movement, No added sounds Cardiovascular: Regular rate, Normal S1, Normal S2, No murmurs Abdominal: Active bowel sounds, Soft, no distention, no tenderness Extremities: No edema, Normal pulses, Tenderness on right calcaneal region, slightly erythematous Skin: No Significant rash, except past surgical scars, stasis dermatitis in bilateral legs Neuro: Normal speech, sensorimotor deficits none Psych/Mental Status: Mental status NL, Mood NL laboratory and microbiology Laboratory Tests 03/29/25 10:30 Test 03/29/25 10:30 Range/Units Serum Glucose 100 74-106 mg/dL Labs and/or images reviewed: Labs reviewed by me, Image(s) reviewed by me Problem List/Assessment/Plan Problem List/Assessment/Plan #Acute Nondisplaced fracture of the calcaneus -Foot x-ray shows: Possible nondisplaced fracture at the anterior superior aspect of the calcaneus. -ondansetron 4 mg IV q.4 PRN -Acetaminophen 650 mg p.o. q.6 PRN -[place] 5/325 mg 1 tab PRN -Morphine sulfate 2 mg IV q.4 PRN -podiatry and orthopedic consult pending # acute complicated cystitis- according to report from PCP -patient started on Invanz 1 g daily #DARON due to VMN -cr 1.08 -continue to monitor #CHF, HFpEF 60%, not under exacerbation #Atrial fibrillation #hypertension #hx of mild obstructive coronary artery disease -Last echo done on 05/24/2024 -continue home medication furosemide 20 mg p.o. daily scheduled -metoprolol 25 mg p.o. daily -Amlodipine 5 mg p.o. daily -Losartan 50 mg per orally daily -amiodarone 200 mg p.o. daily -Lovenox 1 mg/kg- 60 mg subcutaneous b.i.d. -ekg # history of COPD, not under exacerbation - albuterol med nebs 2.5 mg q.4 PRN - montelukast 10 mg p.o. daily #hypothyroidism -Continuing home medication levothyroxine 50 mcg p.o. daily scheduled #?DM type 2 -s glucose 114 -A1c 5 #insomnia and anxiety -continue trazadone 100mg prn # history of vitamin-D deficiency Continue cholecalciferol 5000 units daily per oral DVT prophylaxis: Lovenox 1 mg/kg-60 mg subcutaneous b.i.d. Diet: Cardiac diet Goals of care discussed with the patient for more than 27 minutes: DNR/DNI Case discussed with Dr. Walker, patient Plan discussed with: Patient, Daughter My Orders My Orders Orders - BAM CORTES Procedure Category Date Status Time Urinalysis LAB 03/29/25 Logged 14:22 Hydrocodone-Acet PHA 03/29/25 In Process 5/325mg Tab ([place] 15:15 Ertapenem Sod Inj PHA 03/30/25 In Process (Invanz) 10:00 Insert Midline ORDERS 03/29/25 Transmitted 15:03 * Dishwasher CONS 03/29/25 Transmitted Consult Levalbuterol Hcl PHA 03/29/25 Logged (Xopenex Medneb) 18:00 Ipratropium Medneb PHA 03/29/25 Logged (Atrovent Medneb) 18:00 Gabapentin Capsule PHA 03/29/25 In Process (Neurontin Capsule) 15:33 Sepsis reassessment post fluid Capillary Refill: < 3 seconds Date of Service: Mar 29, 2025 Billing Provider: CORTNEY WALKER MD Common Visit Codes: 29264-[id number] INP/OBS CARE(HIGH) Secondary Visit Codes: [id number] CARE PLAN 30 MINUTES BAM CORTES Mar 29, 2025 15:34 CORTNEY WALKER MD Mar 29, 2025 18:24
[2025-03-29] MEDS: GABAPENTIN 400 MG CAP PO SCH (15:44)
[2025-03-29] MEDS: IPRATROPIUM BROM 0.5 MG/2.5ML INH SOL NEB SCH (19:00)
[2025-03-29] MEDS: LEVALBUTEROL HCL 1.25 MG/3 ML NEB NEB SCH (19:00)
[2025-03-29] MEDS: ENOXAPARIN SOD 60 MG/0.6 ML SYRINGE SC SCH (21:55)
[2025-03-30] VITALS (10 sets, daily range): BP systolic 147–174; BP diastolic 71–88; PULSE 59–60; RESP 16–20; TEMP 97.7–98.3; O2SAT 94–99
[2025-03-30] MEDS: ERTAPENEM SOD INJ 1 GM in SODIUM CHL 0.9% 50 ML IV SCH (11:54)
--- NOTE | 2025-03-30 13:44 | DVH ---
CLINICAL INDICATION: PAIN IN ANKLE TECHNIQUE: 2 radiographic views of the left ankle were obtained. Comparison: XY R FOOT 3 VIEW XRAY on DOS: 03/28/25, XY R FOOT 3 VIEW XRAY on DOS: 12/12/23, XY R ANKLE 3 VIEW on DOS: 12/04/23 FINDINGS/IMPRESSION: Soft tissue swelling about the right lateral ankle. Linear sclerotic focus in the left distal fibula may reflect a nondisplaced fracture. Small plantar and posterior calcaneal enthesophytes.
--- NOTE | 2025-03-30 18:42 | DVHPNRES ---
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 As per patient she felt okay in the morning and walked to her desk but when she stood up and took a step with the right foot, she felt a sharp sudden pain on her heel that made it difficult for her to ambulate, which prompted her daughter to bring her to the emergency room. She reports that she has a high fall risk and describes the pain as 10/10 in intensity, localized to the calcaneal region, nonradiating and constant in nature. Vitals n admission temperature 98.3, pulse 59, respiratory rate 20, blood pressure 150/61 mmHg, pulse oximetry 98 in room air. x-ray of the right foot shows possible nondisplaced fracture at anterior superior aspect of the calcaneus. Since patient has urinary incontinence of Melo's catheter has been placed. We are admitting the patient for further monitoring and workup. As per the patient she does not have type 2 diabetes. She took metformin a decade ago for 2 years and was told by her PCP to stop taking them. serum blood glucose is 114 and A1c has been ordered. As per the patient, her PCP called to inform recent reports showed complicated cystitis. Consult for placement of midline was done and patient was started on Invanz 1 g daily. Possible placement at [facility] post discharge was discussed with the patient and her daughter. Gabapentin dose was increased to 800mg tid. Past medical history: Hypertension, AFib, CHF with preserved ejection fraction 60% (last echo done on 05/24/2024), mild obstructive coronary artery disease (diagnosed 05/26/2024), hypothyroidism Past surgical history: Appendectomy, tonsillectomy, hysterectomy, bilateral cataract surgery, cholecystectomy, status post pacemaker, abott device for neuropathic pain, pelvic bolts on right hip, spinal surgery with spacers Family history: Mother had heart disease, father at 71 and used to be a heavy smoker Social history: Patient denies ever smoking but was exposed to heavy secondhand smoking up to the age of 14 from her father who used to smoke a lot, patient denies drinking alcohol or taking illicit drugs Allergies: Milk, sulfa drugs, tetracycline, naproxen, dpt vaccine Code status: DNR/DNI Patient mentions she still has pain in her right heel. Constitutional: No: Fever, Chills, Sweats, Weakness, Malaise Eyes: No: Pain, Vision change, Conjunctivae inflammation, Eyelid inflammation, Redness ENT: No: Ear pain, Ear discharge, Nose pain, Nose discharge, Nose congestion, Mouth pain, Mouth swelling, Throat pain, Throat swelling Respiratory: No: Cough, Dry, Shortness of breath, SOB with excertion, Wheezing, Hemoptysis, Pleuritic Pain, Sputum, Wheezing Cardiovascular: No: Chest Pain, Palpitations, Orthopnea, Paroxysmal Noc. Dyspnea, Edema, Lt Headedness Gastrointestinal: No: Nausea, Vomiting, Abdominal Pain, Diarrhea, Constipation, Melena, Hematochezia Genitourinary: No Dysuria, No Frequency, No Incontinence, No Hematuria, No Retention Musculoskeletal: pain in right heel, neck pain, shoulder pain, arm pain, back pain, hand pain Skin: No: Rash, Lesions, Jaundice, Bruising, Other Neurological: Confusion; No: Weakness, Numbness, Incoordination, Change in speech, Seizures Allergies: Coded Allergies: Milk-related Compounds (Verified Allergy, Unknown, 03/11/23) DAIRY Naproxen (Verified Allergy, Unknown, 12/31/22) Sulfa Drugs (Verified Allergy, Unknown, 12/31/22) Tetracycline (Verified Allergy, Unknown, 12/31/22) Uncoded Allergies: ADHESIVE TAPE (Allergy, Unknown, 12/04/23) 03/30/25- the patient was seen at bedside today. All labs and charts were reviewed The patient mentions she still has pain in the right heel. Orthopedics was consulted for the patient and they recommended a walker boot for the patient. Possible discharge for tomorrow to [facility] was discussed with the patient and was arranged for 8-9 am tomorrow morning. Lovenox was discontinued and she was started on Eliquis. Antibiotics were continued. Objective vital signs Vital Sign Date Time Temp Pulse Resp B/P (MAP) Pulse Ox O2 Delivery O2 Flow Rate FiO2 03/30/25 17:00 98.2 60 17 160/80 (106) 96 98.2 03/29/25 20:00 Room Air* 0 21 Total Intake and Output 03/29/25 03/29/25 03/30/25 15:00 23:00 07:00 Intake Total 600 ml 300 ml Output Total 1450 ml 1000 ml Balance -850 ml -700 ml medications Current Medications Medications Dose Ordered Sig/Jasmyne Route Start Time Stop Time Status Last Admin Dose Admin Ondansetron HCl 4 mg Q4HP PRN IV 03/28/25 20:45 Acetaminophen 650 mg Q6HP PRN PO 03/28/25 20:45 Amiodarone HCl 200 mg DAILY PO 03/29/25 10:00 03/30/25 10:54 200 MG Levothyroxine Sodium 50 mcg DAILY PO 03/29/25 10:00 03/30/25 10:53 50 MCG Montelukast Sodium 10 mg DAILY PO 03/29/25 10:00 03/30/25 10:54 10 MG Trazodone HCl 100 mg QHSP PRN PO 03/28/25 20:45 03/29/25 00:03 100 MG Albuterol 2.5 mg Q4HPRN PRN NEB 03/29/25 00:15 Cholecalciferol 5,000 unit DAILY PO 03/29/25 10:00 03/30/25 10:54 5,000 UNIT Digoxin 0.25 mg DAILY PO 03/29/25 10:00 03/30/25 10:55 0.25 MG Magnesium Oxide 400 mg DAILY PO 03/29/25 10:00 03/30/25 10:55 400 MG Metoprolol Succinate 25 mg DAILY@BREAKFAST PO 03/29/25 08:00 03/30/25 08:33 25 MG Losartan Potassium 50 mg DAILY PO 03/29/25 10:00 03/30/25 10:55 50 MG Hydromorphone HCl 0.25 mg Q4HPRN PRN IV 03/28/25 21:00 Acetaminophen/ Hydrocodone Bitart 1 tab Q4HP PRN PO 03/29/25 15:15 03/30/25 15:35 1 TAB Ertapenem 1 gm/ Sodium Chloride 50 ml @ 100 mls/hr DAILY IV 03/30/25 10:00 03/30/25 11:54 100 MLS/HR Gabapentin 800 mg TID PO 03/29/25 15:33 03/30/25 15:17 800 MG Levalbuterol HCl 0.625 mg Q6HR NEB 03/29/25 18:00 Ipratropium [place] 0.5 mg Q6HR NEB 03/29/25 18:00 Apixaban 2.5 mg BID PO 03/30/25 22:00 UNV Examination General Appearance: Alert, Oriented X3, Cooperative, Not in acute distress HEENT: Atraumatic, Mucous membranes moist/pink Respiratory: Clear to auscultation, Normal air movement, No added sounds Cardiovascular: Regular rate, Normal S1, Normal S2, No murmurs Abdominal: Active bowel sounds, Soft, no distention, no tenderness Extremities: No edema, Normal pulses, Tenderness on right calcaneal region, slightly erythematous Skin: No Significant rash, except past surgical scars, stasis dermatitis in bilateral legs Neuro: Normal speech, sensorimotor deficits none Psych/Mental Status: Mental status NL, Mood NL laboratory and microbiology Laboratory Tests 03/29/25 10:30 Test 03/29/25 10:30 Range/Units Serum Glucose 100 74-106 mg/dL Labs and/or images reviewed: Labs reviewed by me, Image(s) reviewed by me Problem List/Assessment/Plan Problem List/Assessment/Plan #Acute Nondisplaced fracture of the calcaneus -Foot x-ray shows: Possible nondisplaced fracture at the anterior superior aspect of the calcaneus. -meg Xray done on 03/30/25 showed Soft tissue swelling about the right lateral ankle. Linear sclerotic focus in the distal fibula may reflect a nondisplaced fracture. Small plantar and posterior calcaneal enthesophytes. -ondansetron 4 mg IV q.4 PRN -Acetaminophen 650 mg p.o. q.6 PRN -[place] 5/325 mg 1 tab PRN -Morphine sulfate 2 mg IV q.4 PRN -Ortho recommended walker boot # Acute complicated cystitis- according to report from PCP -patient started on Invanz 1 g daily on 03/29/25 #DARON due to VMN -cr 1.08---0.91 today -continue to monitor #CHF, HFpEF 60%, not under exacerbation #Atrial fibrillation #hypertension #hx of mild obstructive coronary artery disease -Last echo done on 05/24/2024 -continue home medication furosemide 20 mg p.o. daily scheduled -metoprolol 25 mg p.o. daily -Amlodipine 5 mg p.o. daily -Losartan 50 mg per orally daily -amiodarone 200 mg p.o. daily - eliquis 2.5 mg po bid # history of COPD, not under exacerbation - albuterol med nebs 2.5 mg q.4 PRN - montelukast 10 mg p.o. daily #hypothyroidism -Continuing home medication levothyroxine 50 mcg p.o. daily scheduled #?DM type 2 -s glucose 114 -A1c 5 #insomnia and anxiety -continue trazadone 100mg prn # history of vitamin-D deficiency Continue cholecalciferol 5000 units daily per oral DVT prophylaxis: eliquis 2.5 mg po bid Diet: Cardiac diet Goals of care discussed with the patient for more than 27 minutes: DNR/DNI Case discussed with Dr. Walker, patient Plan discussed with: Patient My Orders My Orders Orders - BAM CORTES RESIDENT Procedure Category Date Status Time * Puppy Sitter CONS 03/30/25 Transmitted Consult Sepsis reassessment post fluid Capillary Refill: < 3 seconds Date of Service: Mar 30, 2025 Billing Provider: CORTNEY WALKER MD Common Visit Codes: [id number] INP/OBS CARE(HIGH) BAM CORTES RESIDENT Mar 30, 2025 18:42 DANIEL MONTE RESIDENT Mar 30, 2025 19:49
--- NOTE | 2025-03-30 21:22 | DVHINCON2 ---
Consult Note Consult Consult Note Reason for Consultation: Left ankle pain following sudden onset while ambulating. History of Present Illness: Ms. Candie Martin is a 89-year-old female evaluated as an inpatient. The patient reports that two days ago, while eating breakfast, she stood up and experienced a sudden sharp pain in her right ankle. No fall, twist, or direct trauma was reported. She was evaluated as inpatient and admited for pain with WB right ankle. NO numbness/tingling , weakness or other joint pain reported. The patient was admitted for pain management and orthopedic evaluation. Physical Examination: right ankle Inspection: Moderate swelling noted over the lateral aspect of the left ankle with NO PAIN ON PALPATION with similar finding on left lat ankle , patient reports swelling as chronic for many years and before recent injury. TTP over medial plater fascii aspect Skin: Intact, no open wounds or discoloration. Palpation: Tenderness over the Ankle joint medial and lateral aspect Neurovascular: Sensation intact; dorsalis pedis and posterior tibial pulses palpable; capillary refill <2 seconds. Range of Motion: grossly intact with pain Imaging: Left ankle radiographs reviewed Soft tissue swelling lateral ankle, Linear Sclerotic focus in left distal fibula may reflect non displaced fracture, Small plantar and posterior calcaneal esthesophyte is noted. left foot xray with Possible nondisplaced fracture at the anterior superior aspect of the calcaneus?. Assessment: Closed, non-displaced anterior process fracture of the left talus. Plan: XRy and patient case discussed with Dr. Currie. Patient treated with a CAM boot. Weight-bearing as tolerated (WBAT) with use of supportive device as needed. Recommend to inpatient team if unable to WB with CAM foot can get CT Right foot and ankle. Continue ice, elevation, and pain control as directed. Follow-up in the outpatient orthopedic clinic in 710 days for re-evaluation and repeat imaging as indicated. Discussed diagnosis, prognosis, and treatment options with the patient; she verbalized understanding and agreement with the plan. Dr. Santana, on-call orthopedic surgeon, reviewed and agrees with the treatment plan. Plan discussed with: Patient, Other (bedside nurse) Visit Coding Surgery Date of Service if different f: Mar 30, 2025 Billing Provider: MARK GALLARDO Surgery Visit Codes: 77885 - INP CONSULT <55 MIN MARK GALLARDO Mar 30, 2025 21:22
[2025-03-30] MEDS: APIXABAN 2.5 MG TAB PO SCH (22:41)
[2025-03-31] VITALS (10 sets, daily range): BP systolic 111–159; BP diastolic 71–84; PULSE 59–71; RESP 16–18; TEMP 97.7–98; O2SAT 93–100
--- NOTE | 2025-03-31 14:54 | DVHDSRES ---
Discharge Summary Date of Admission Resident Creating Document: BAM CORTES RESIDENT Mar 28, 2025 at 20:38 Date of Discharge: Mar 31, 2025 Admitting Diagnosis Fall Labs/Diagnostic Data: Laboratory Results Test 03/29/25 10:30 03/28/25 23:09 White Blood Count 6.5 10^3/uL (4.4-10.8) Red Blood Count 3.78 10^6/uL (4.0-5.20) Hemoglobin 12.1 g/dL (12.2-16.2) Hematocrit 35.8 % (36.0-46.0) Mean Corpuscular Volume 94.7 fL (80.0-100.0) Mean Corpuscular Hemoglobin 32.2 pg (28.0-32.0) Mean Corpuscular Hemoglobin Concent 33.9 g/dL (32.0-36.0) Red Cell Distribution Width 12.9 % (11.8-14.3) Platelet Count 186 10^3/uL (140-450) Mean Platelet Volume 8.0 fL (6.9-10.8) Neutrophils (%) (Auto) 70.3 % (37.0-80.0) Lymphocytes (%) (Auto) 20.8 % (10.0-50.0) Monocytes (%) (Auto) 7.2 % (0.0-12.0) Eosinophils (%) (Auto) 0.7 % (0.0-7.0) Basophils (%) (Auto) 1.0 % (0.0-2.0) Neutrophils # (Auto) 4.6 10 ^3/uL (1.6-8.6) Lymphocytes # (Auto) 1.4 10 ^3/uL (0.4-5.4) Monocytes # (Auto) 0.5 10 ^3/uL (0-1.3) Eosinophils # (Auto) 0 10 ^3/uL (0-0.8) Basophils # (Auto) 0.1 10 ^3/uL (0-0.2) Nucleated Red Blood Cells 0.0 % Sodium Level 142 mmol/L (136-145) Potassium Level 3.8 mmol/L (3.5-5.1) Chloride Level 104 mmol/L (98-107) Carbon Dioxide Level 29 mmol/L (20-31) Anion Gap 9 (5-15) Blood Urea Nitrogen 14 mg/dL (9-23) Creatinine 0.91 mg/dL (0.550-1.02) Glomerular Filtration Rate Calc 61 mL/min (>90) BUN/Creatinine Ratio 15.4 (10.0-20.0) Serum Glucose 100 mg/dL (74-106) Hemoglobin A1c 5.0 % A1C (<5.7) Calcium Level 8.8 mg/dL (8.7-10.4) Total Bilirubin 0.3 mg/dL (0.2-1.0) Aspartate Amino Transferase (AST) 32 U/L (13-40) Alanine Aminotransferase (ALT) 32 U/L (7-40) Alkaline Phosphatase 80 U/L (46-116) Total Protein 6.5 g/dL (5.7-8.2) Albumin 3.8 g/dL (3.2-4.8) Prothrombin Time 11.4 sec (9.3-11.8) Prothrombin Time INR 1.08 (0.9-1.15) Activated Partial Thromboplast Time 28.9 SEC (24.5-34.5) B-Type Natriuretic Peptide 120.28 pg/mL (0-100) Other Laboratory Tests 03/29/25 10:30 Brief Hx & Hospital Course: Candie Hernandez is an 89-year-old female with past medical history of COPD on 2 L of oxygen at night, hypertension, atrial fibrillation, hypothyroidism, CHF-HFpEF 60%, status post pacemaker, hyperlipidemia,history of bowel and bladder incontinence, chronic back pain, spinal stenosis status post spacer placement, pelvic bolts came in with a chief complaint of pain in the right foot. As per patient she felt okay in the morning and walked to her desk but when she stood up and took a step with the right foot, she felt a sharp sudden pain on her heel that made it difficult for her to ambulate, which prompted her daughter to bring her to the emergency room. She reports that she has a high fall risk and describes the pain as 10/10 in intensity, localized to the calcaneal region, nonradiating and constant in nature. Vitals on admission are temperature 98.3, pulse 59, respiratory rate 20, blood pressure 150/61 mmHg, pulse oximetry 98 in room air. X-ray of the right foot showed possible nondisplaced fracture at anterior superior aspect of the calcaneus. As per the patient, her PCP called to inform her, her UTI showed complicated cystitis. Consult for placement of midline was done and patient was started on Invanz 1 g daily on 03/30/25. Gabapentin dose was increased to 800mg tid, which is her home dose. Orthopedics was consulted recommendations were noted. The patient was given a CAM boot and told to weight bear as tolerated. Lovenox was discontinued and she was started on Eliquis. All medications and recommendations were thoroughly explained to the patient and she demonstrated understanding of the same. Patient was discharged to a [facility] in a stable condition for IV antibiotics for a total of 10 days with stop date 04/08/2025. She was told to follow in the outpatient orthopedic clinic in 7-10 days for re- evaluation and repeat imaging as indicated. Past medical history: Hypertension, AFib, CHF with preserved ejection fraction 60% (last echo done on 05/24/2024), mild obstructive coronary artery disease (diagnosed 05/26/2024), hypothyroidism Past surgical history: Appendectomy, tonsillectomy, hysterectomy, bilateral cataract surgery, cholecystectomy, status post pacemaker, abott device for neuropathic pain, pelvic bolts on right hip, spinal surgery with spacers Family history: Mother had heart disease, father at 71 and used to be a heavy smoker Social history: Patient denies ever smoking but was exposed to heavy secondhand smoking up to the age of 14 from her father who used to smoke a lot, patient denies drinking alcohol or taking illicit drugs Allergies: Milk, sulfa drugs, tetracycline, naproxen, dpt vaccine Code status: DNR/DN General Appearance: Alert, Oriented X3, Cooperative, Not in acute distress HEENT: Atraumatic, Mucous membranes moist/pink Respiratory: Clear to auscultation, Normal air movement, No added sounds Cardiovascular: Regular rate, Normal S1, Normal S2, No murmurs Abdominal: Active bowel sounds, Soft, no distention, no tenderness Extremities: No edema, Normal pulses, Tenderness on right calcaneal region, patient had CAM boot on her right foot Skin: No Significant rash, except past surgical scars, stasis dermatitis in bilateral legs Neuro: Normal speech, sensorimotor deficits none Psych/Mental Status: Mental status NL, Mood NL Operations or Procedures 1.PROCEDURE(s): RFOOT - R FOOT 3 VIEW XRAY REASON: pain ORDER NUMBER(s): [id number], ACCESSION NUMBER(s): [id number] XY R FOOT 3 VIEW XRAY, INDICATION: pain TECHNICAL DATA: Frontal, and lateral views were obtained of the right foot. COMPARISON: XY R FOOT 3 VIEW XRAY on DOS: 12/12/23, XY R ANKLE 3 VIEW on DOS: 12/04/23 FINDINGS: Possible nondisplaced fracture at the anterior superior aspect of the calcaneus. Joint spaces are maintained. Alignment is anatomic. The hallux sesamoids appear normal. Soft tissues are within normal limits. IMPRESSION: Possible nondisplaced fracture at the anterior superior aspect of the calcaneus. 2.PROCEDURE(s): CXRP - CHEST PORTABLE REASON: sob ORDER NUMBER(s): [id number], ACCESSION NUMBER(s): [id number] INDICATION: sob TECHNIQUE: Frontal view of the chest. COMPARISON: CT CHEST WITHOUT CONTRAST on DOS: 12/23/24, XY CHEST XRAY 1 VIEW on DOS: 05/24/24, XY CHEST PORTABLE on DOS: 05/23/24, XY R RIB XRAY on DOS: 12/04/23, XY CHEST XRAY 1 VIEW on DOS: 12/31/22 FINDINGS: Left-sided pacemaker. Cardiomegaly. There is no evidence of pleural disease. The lungs are clear. The bony structures of the chest are intact without fracture. IMPRESSION: Cardiomegaly with CHF. 3.PROCEDURE(s): RANK2 - R ANKLE 2 VIEW XRAY REASON: PAIN IN ANKLE ORDER NUMBER(s): [id number], ACCESSION NUMBER(s): [id number] CLINICAL INDICATION: PAIN IN ANKLE TECHNIQUE: 2 radiographic views of the left ankle were obtained. Comparison: XY R FOOT 3 VIEW XRAY on DOS: 03/28/25, XY R FOOT 3 VIEW XRAY on DOS: 12/12/23, XY R ANKLE 3 VIEW on DOS: 12/04/23 FINDINGS/IMPRESSION: Soft tissue swelling about the right lateral ankle. Linear sclerotic focus in the left distal fibula may reflect a nondisplaced fracture. Small plantar and posterior calcaneal enthesophytes. Condition at Discharge: Fair Final Diagnosis/Problems List #Acute Complicated Cystitis #DARON due to VMN #Acute Nondisplaced fracture of the calcaneus #Chronic Diastolic CHF #Chronic Resp Failure #Atrial fibrillation #Secondary Hypercoagulable state #Hypertensive Heart Disease w/ Chronic Diastolic CHF #COPD, not under exacerbation #hypothyroidism, controlled #insomnia and anxiety # history of vitamin-D deficiency Discharge Disposition: Long-Term Facility Discharge Instruct/Medications Diet: Cardiac 2g Na,low cholest Activity: No Restrictions, As Tolerated Follow Up/Referral: follow up with ortho in 1 week follow up with PCP in 1-2 weeks Medications: invanz 1gm daily for 10 days Scheduled Albuterol Sulfate (Proair Respiclick), 108 MCG IN QA, (Reported) Amiodarone Hcl (Amiodarone Hcl), 200 MG PO DAILY Amlodipine Besylate (Amlodipine Besylate), 5 MG PO DAILY, (Reported) Apixaban Base (Eliquis), 2.5 MG PO BID, (Reported) Cholecalciferol (Vitamin D3), 5,000 UNITS PO DAILY, (Reported) Cod Liver Oil (Cod Liver Oil), 2,200 MG PO TID, (Reported) Digoxin (Digoxin), 0.25 MG PO DAILY, (Reported) Ferrous Sulfate (Iron (Ferrous Sulfate)), 18 MG PO DAILY, (Reported) Ldfeorjwzrl-Wjwozgpfuxvq-Faggl (Trelegy Ellipta 100-62.5-25 Mcg/INH), 1 AER IN QAM, (Reported) Furosemide (Lasix), 20 MG PO DAILY, (Reported) Furosemide (Furosemide), 1 TAB PO DAILY, (Reported) Gabapentin (Gabapentin), 1 TAB PO TID, (Reported) Hydrocodone-Acetaminophen (Hydrocodone/Acetaminophen 5-325 mg), 1 TAB PO PRN, (Reported) Levocarnitine (L-Carnitine), 1,000 MG PO BID, (Reported) Levothyroxine Sodium (Levothyroxine Sodium), 1 TAB PO DAILY, (Reported) Levothyroxine Sodium (Levothyroxine Sodium), 1 TAB PO DAILY, (Reported) Magnesium Oxide (Magnesium Oxide), 500 MG PO DAILY, (Reported) Magnesium Oxide (Magnesium Oxide), 266 MG PO DAILY, (Reported) Meclizine Hcl (Meclizine Hcl), 1 TAB PO TID, (Reported) Methylsulfonylmethane (Msm), 1,000 MG PO DAILY, (Reported) Metoprolol Succinate (Metoprolol Succinate Er), 25 MG PO DAILY@BREAKFAST, (Reported) Metoprolol Succinate (Toprol Xl), 1 TAB PO DAILY Montelukast Sodium (Montelukast Sodium), 1 TAB PO DAILY, (Reported) [place]-3 Fatty Acids (Fish Oil), 2,000 MG PO TID, (Reported) Omeprazole (Omeprazole Dr), 40 MG PO DAILY@DINNER, (Reported) Potassium Chloride (Klor-Con 8), 1 TAB PO DAILY, (Reported) S-Adenosylmethionine (Jonas E), 400 MG PO BIDBRS, (Reported) Simvastatin (Simvastatin), 1 TAB PO QPM, (Reported) Telmisartan (Telmisartan), 1 TAB PO DAILY, (Reported) Ubiquinol (Ubiquinol), 100 MG PO QAM, (Reported) Vitamin B12 (Vitamin B-12), 2,500 MCG PO DAILY@BREAKFAST, (Reported) Zinc Gluconate (Zinc), 30 MG PO DAILY, (Reported) Scheduled PRN Albuterol Sulfate (Albuterol Sulfate), 1 VIAL NEB Q4HPRN PRN for SHORTNESS OF BREATH, (Reported) Trazodone Hcl (Trazodone Hcl), 2 TAB PO QHSP PRN for ANXIETY, (Reported) Miscellaneous Medications Aaakejwipyc-Gnnjsnpifhvk-Spnto (Trelegy Ellipta 100-62.5-25 Mcg/INH), 1 AER IN, (Reported) Discontinued Medications Cholecalciferol (Vitamin D3), 5,000 UNIT PO QAM, (Reported) Methylsulfonylmethane (Msm), 1,000 MG PO HS, (Reported) Discharge Statement: "Patient was advised to return to the ER or call 911 if any headaches, dizziness, shortness of breath, chest pain, abdominal pain, bleeding, fevers, or worsening of medical condition. Patient was counseled about treatment plan, medications, possible side effects, patientverbalized understanding. All questions were answered to the best of my ability. This discharge took greater then 30 minutes in planning, reviewing documentation, counseling the patient, and discussing with other team members." Date of Service: Mar 31, 2025 Billing Provider: CORTNEY DINH MD Common Visit Codes: 96664-HUB/OBS DISCH DAY >30min BAM CORTES RESIDENT Mar 31, 2025 14:54 CORTNEY DINH MD Mar 31, 2025 17:09
== END 2025-03-31 10:30 | DRG 562 ==
LOC: ER 12:37 → OVERFLOW 20:38 → WEST WING 03-29 02:45
PROVIDERS: ADMIT Internal Medicine; ATTEND Internal Medicine
PROC: 05HD33Z Insertion of Infusion Device into Right Cephalic Vein, Percutaneous Approach (ICD-10-PCS; principal; 2025-03-29)
PROC: B54MZZA Ultrasonography of Right Upper Extremity Veins, Guidance (ICD-10-PCS; 2025-03-29)
DX: S92.002A Unspecified fracture of left calcaneus, initial encounter for closed fracture (principal); N17.0 Acute kidney failure with tubular necrosis; D68.69 Other thrombophilia; J96.10 Chronic respiratory failure, unspecified whether with hypoxia or hypercapnia; I50.32 Chronic diastolic (congestive) heart failure; N30.00 Acute cystitis without hematuria; S92.192A Other fracture of left talus, initial encounter for closed fracture; I48.91 Unspecified atrial fibrillation; J44.9 Chronic obstructive pulmonary disease, unspecified; Z66 Do not resuscitate; I25.10 Atherosclerotic heart disease of native coronary artery without angina pectoris; F41.9 Anxiety disorder, unspecified; I11.0 Hypertensive heart disease with heart failure; G47.00 Insomnia, unspecified; X58.XXXA Exposure to other specified factors, initial encounter; E03.9 Hypothyroidism, unspecified; Z90.710 Acquired absence of both cervix and uterus; Z91.0110 Allergy to milk products, unspecified; Z88.2 Allergy status to sulfonamides; Z88.8 Allergy status to other drugs, medicaments and biological substances; Z91.048 Other nonmedicinal substance allergy status; Z90.49 Acquired absence of other specified parts of digestive tract; Y93.89 Activity, other specified; Y92.89 Other specified places as the place of occurrence of the external cause; Y99.8 Other external cause status
CPT/HCPCS: 36415; 71045; 73600; 73630; 80053; 83036; 83880; 85025; 85610; 85730; 94640; 97110; 97116; 97163; 97530; G0378; J1335